=== PATIENT | male | born 1955 | race Caucasian/White ===

== ENCOUNTER 2016-10-10 12:03 | Inpatient (IN) | payer OTHER ==
[2016-10-10] VITALS (7 sets, daily range): BP systolic 110–160; BP diastolic 66–86
[~2016-10-10] VITALS: Ht 172.7 cm; Wt 57.8 kg
--- NOTE | ~2016-10-10 | PR ---
[place], [place] PROGRESS NOTE NAME: NICOLE AGUILA [facility] #: [id number] UNIT #: [id number] ROOM: 515 DOCTOR: DARWIN PUCKETT MD,BANG BIRTHDATE: [birth year] DOS: 10/13/2016 PULMONARY PROGRESS NOTE SUBJECTIVE: The patient has been doing well for this patient with reduction of respiratory symptoms were noted from the last 24 hours. Shortness of breath, coughing, wheezing all of the symptoms have been improving gradually. OBJECTIVE: VITAL SIGNS: Normal temperature, respiratory rate 20, heart rate of 84, blood pressure 151/80. Pulse oxygen saturation of the patient recorded as 97%. HEENT: Examination shows no new change. NECK: Supple. CARDIOVASCULAR: S1, S2 is audible. LUNGS: Noted with questionable wheezing, no crackles. ABDOMEN: Soft, nontender. LABORATORY DATA: CBC this morning was noted as normal. IMPRESSION: 1. Stable respiratory status was noted at the present time with resolving acute exacerbation of COPD. 2. History of chronic hypoxic respiratory failure. PLAN OF TREATMENT: No change in the plan. The patient could be considered for home discharge on oral tapering prednisone and the antibiotics. All of the necessary medications of the inhalers, refills needed by the patient has been ordered and submitted to the pharmacy. BANG GRANADOS MD CM:PNTRANS [id number] BANG PUCKETT MD 10/13/16 1122 interface
--- NOTE | ~2016-10-10 | PR ---
[place], [place] PROGRESS NOTE NAME: NICOLE AGUILA [facility] #: [id number] UNIT #: [id number] ROOM: 515 DOCTOR: VAN PACHECO MD BIRTHDATE: [birth year] DOS: 10/12/2016 SUBJECTIVE: This gentleman was seen by Dr. Dennis yesterday. He had a normal stress test not long ago and LV systolic function is normal. He was admitted because of chest pain and mild worsening shortness of breath. He gets very anxious, his breathing is worse and chest tightness also gets worse. He has no palpitations, has not had any dizziness or loss of consciousness. PHYSICAL EXAMINATION: VITAL SIGNS: Pulse is 100 and regular, blood pressure 141/95. NECK: Normal JVP. EXTREMITIES: No edema in the lower extremities. CARDIOVASCULAR: Auscultation reveals no murmurs. LUNGS: Breath sounds are severely diminished with inspiratory and expiratory wheezing and rhonchi and crackles. IMPRESSION: This patient's chest pain is most likely due to chest wall due to labored breathing. I do not suspect any underlying coronary artery problem at this time. I saw this patient on behalf of Dr. Dennis. VAN PACHECO MD CM:PNTRANS 40 [phone] VAN PACHECO MD 10/13/162057 interface
--- NOTE | ~2016-10-10 | PR ---
[place], [place] PROGRESS NOTE NAME: NICOLE AGUILA [facility] #: [id number] UNIT #: [id number] ROOM: 515 DOCTOR: DARWIN PUCKETT MD,BANG BIRTHDATE: [birth year] DOS: 10/12/2016 PULMONARY PROGRESS NOTE SUBJECTIVE: He has been noted to be comfortable at this time. The shortness of breath and the patient's wheezing has been noted decreased, but not resolved. There were no symptoms of chest pain or any acute abdominal pain. OBJECTIVE: VITAL SIGNS: Normal temperature, respiratory rate 20, heart rate 89, blood pressure 148/86. Pulse oxygen saturation on 3 liters nasal cannula 97% saturation. HEENT: Examination shows no new change. NECK: Supple. CARDIOVASCULAR: S1, S2 audible. LUNGS: Noted without any wheezing and without any crackles. Moderate expiratory wheezing noted in the lungs bilaterally. ABDOMEN: Soft, nontender. LABORATORY DATA: CBC essentially noted grossly normal today. IMPRESSION: The patient with acute exacerbation of COPD with acute tracheobronchitis with history of chronic hypoxic respiratory failure as well. PLAN OF TREATMENT: Continuation of the corticosteroids for the patient, the dose was changed to 40 mg b.i.d. today. Continue bronchodilators, oxygen supplementation, and other plan of management. Usual care. All other supportive care and therapies. Usual treatments. BANG GRANADOS MD CM:PNTRANS 1025 BANG PUCKETT MD 10/13/16 0226 interface
--- NOTE | ~2016-10-10 | CON ---
[place], [place] REPORT OF CONSULTATION NAME: NICOLE AGUILA UNIT #: [id number] ROOM: [facility] DOCTOR: YONIS DE LA VEGAJAI BIRTHDATE: [birth year] DOS: 10/11/2016 REASON FOR CONSULTATION: Atypical chest pain and shortness of breath. HISTORY OF PRESENT ILLNESS: A 61-year-old gentleman who had a stress test done last year showed no evidence of ischemia at that time with preserved systolic function. Admitting with chest pressure and tightness and heaviness and shortness of breath, chest pain, and constant for the last month, it worsens with exertion described it as heavy pressure underneath the sternum history of COPD, uses 2 liters of oxygen, followed by Dr. Machado, does have a history of hypertension. No previous history of myocardial infarction. No acute EKG changes suggestion of myocardial injury, also. Patient was given respiratory treatments in the Emergency Room, chest x-ray showed hyperinflated lungs. PAST MEDICAL HISTORY: Significant for COPD, hypertension, history of pericarditis. PAST SURGICAL HISTORY: History of hernia repair, history of ____ surgery. SOCIAL HISTORY: Drinks about 6 beers daily. Does not use illicit drugs, smokes about 1-1/2 packs of cigarettes daily, already cut down to 3-4 now. Negative alcohol as mentioned. FAMILY HISTORY: Unknown. ALLERGIES: None. HOME MEDICATIONS: Albuterol, lisinopril and oxygen. REVIEW OF SYSTEMS: CONSTITUTIONAL: No fever, no chills. CARDIOVASCULAR: Reports chest discomfort, no palpitations. ABDOMEN: No nausea, no vomiting. GENITOURINARY: No dysuria, hematuria. NEUROLOGIC: Intact. PSYCHIATRIC: Intact. ENDOCRINE: Intact. SKIN: Normal. PHYSICAL EXAMINATION: VITAL SIGNS: Blood pressure is 110/60. The patient is in sinus rhythm. HEENT: Unremarkable. NECK: Supple, no JVD. LUNGS: Clear to auscultation and percussion with positive wheezing, diminished breath sounds. ABDOMEN: Soft. NEUROLOGIC: Stable. LABORATORY DATA: Electrolytes are within normal limits. GFR is normal. Troponins are negative. BNP is 190. Sed rate is not done. INR is normal. [place], [place] REPORT OF CONSULTATION NAME: NICOLE AGUILA UNIT #: [id number] ROOM: [facility] DOCTOR: YONIS DE LA VEGA,JAI BIRTHDATE: [birth year] Hemoglobin, hematocrit within normal limits. Chest x-ray shows no consolidation or effusion, large volume lung bruce interstitial bilaterally ____ fibrosis. EKG showed no acute ST elevation. IMPRESSION: The patient with severe COPD, hypertension, stress test done last year was normal. RECOMMENDATIONS: Continue the present care. We will do the serial enzymes, respiratory toilet. 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 No significant ST elevation and there is no VA depression suggesting any pericarditis most of the changes in the EKG was consistent with pulmonary problems and continue with respiratory treatment at this point. JAI SOMERS MD CM:CONSTR:REPORT OF CONSULTATION 0738 10/11/16 0902 interface
--- NOTE | ~2016-10-10 | CON ---
[place], [place] REPORT OF CONSULTATION NAME: NICOLE AGUILA [facility] #: [id number] UNIT #: [id number] ROOM: 515 DOCTOR: DARWIN PUCKETT MDBANG BIRTHDATE: [birth year] DOS: 10/11/2016 PULMONARY CONSULTATION, EVALUATION AND MANAGEMENT CONSULTATION REQUESTED BY: Hospitalist services. REASON FOR CONSULTATION: To assess the patient for ongoing acute respiratory complaints. HISTORY OF PRESENT ILLNESS: A 61 years old white male known to me from the past. The patient has not been seen in the office since 05/14/2016. The patient has been known with the current problem. The patient stated that he ran out of his medications and does not have any future appointment in the office as well. He denies any symptoms of chest pain, but complaining of tightness in the chest. He also noticed symptoms of shortness of breath occurring for the past 1 month, which has been noted progressively worsening. He was seen in the Emergency Room and has been using the oxygen supplementation previously as well. The coughing has been described without any sputum expectoration. The shortness of breath was occurring with minimal exertion from walking his bed to the bathroom. He also noted continuous wheezing as well. The coughing has been noted essentially without any sputum expectoration. Denies symptoms of hemoptysis or any true chest pain. REVIEW OF SYSTEMS: CONSTITUTIONAL: Fatigue and tiredness described without symptoms of fever or chills. EYES: Denies any burning, redness, or tenderness. EARS, NOSE, THROAT SYMPTOMS: Denies sore throat, hoarseness, otalgia, postnasal drainage. CARDIOVASCULAR SYSTEM: Denies anginal pain, edema of the lower extremities or palpitations. GASTROINTESTINAL SYMPTOMS: Denies dysphagia, nausea, vomiting, diarrhea, abdominal pain, hematemesis, melena, hematochezia, or syncopal episodes. SKIN: Denies lesions or rashes. GENITOURINARY SYMPTOMS: Denies dysuria, suprapubic pain, or hematuria. MUSCULOSKELETAL SYMPTOMS: Denies acute joint pain. Remaining systems were reviewed and noted all negative. PAST MEDICAL HISTORY: Noted, 1. History of chronic hearing loss. 2. Blindness of the right eye. 3. History of uncomplicated severe persistent bronchial asthma. 4. Centrilobular emphysema. 5. Chronic hypoxic respiratory failure. 6. Essential hypertension. SURGICAL HISTORY: Fiberoptic bronchoscopy done in August 2015. SOCIAL HISTORY: The patient is , has 2 children. Denies history of [place], [place] REPORT OF CONSULTATION [facility] [id number] UNIT #: [id number] ROOM: [facility] DOCTOR: BANG LESTER MD BIRTHDATE: [birth year] alcohol use or illicit drug use. Tobacco use noted since age of [age] years old, a pack of cigarettes per day until 08/2015. Denies history of occupation related to pulmonary exposure. FAMILY HISTORY: The patient's father at the age of 51 years from complications of acute myocardial infarction. Mother at the age of 6868 years old from complication related to the ovarian cancer. MEDICATIONS: Current medication administered for the patient were noted as use of Lovenox for DVT prophylaxis, Solu-Medrol 40 mg q. 8 hours, indomethacin for pain, DuoNeb q. 4 hours, Levaquin intravenously and other p.r.n. medications administration. DRUG ALLERGY HISTORY: Noted no known drug allergies. PHYSICAL EXAMINATION: GENERAL: This is a 61-year-old white male who has been noted currently awake and alert without any distress. Height of 5 feet 8 inches, weight of 57 kg, BMI 19.3. VITAL SIGNS: Shows a normal temperature, respiratory rate 14-26, heart rate of 83-95, blood pressure 118/86-162/86. Pulse oxygen saturation on 3 L nasal canula 99% saturation. HEENT: On examination, head was atraumatic. Eyes nonicterus. Decreased hearing for this patient noted in the ears, which is chronic. Blindness of the right eye. NECK: Supple. CARDIOVASCULAR SYSTEM: S1, S2 audible. LUNGS: Noted with moderate reduced breath sounds, expiratory wheezing, no crackles. ABDOMEN: Soft, nontender. LABORATORY DATA: The PT, PTT yesterday noted as normal. CMP yesterday, glucose 135, BUN and creatinine was normal, CO2 of 33. CBC of 10/10 was noted with WBC count 4.1, remaining CBC was essentially normal. CBC of this morning, WBC count was still decreased at 3.2, hemoglobin 13, hematocrit 39.6, platelet count was normal with 84% segmented neutrophils and 10% lymphocytes noted with a differential. The BMP this morning, sodium 132, remaining BMP was normal. Chest x-ray, 1 view was taken on 10/10/2016, shows changes of COPD and hyperinflation. IMPRESSION: 1. The patient who has been currently admitted to the hospital noted with progressive increased respiratory symptoms, history of chronic hypoxic respiratory failure noted with acute exacerbation of chronic obstructive pulmonary disease and acute bacterial bronchitis. 2. The patient with previous nicotine dependence, which has been discontinued in August 2016. 3. History of essential hypertension as well. 4. Leukopenia, etiology was unclear. [place], [place] REPORT OF CONSULTATION NAME: NICOLE AGUILA UNIT #: [id number] ROOM: [facility] DOCTOR: DARWIN PUCKETT MD,BANG BIRTHDATE: [birth year] PLAN OF MANAGEMENT: The patient has already been receiving the Solu-Medrol, bronchodilators, monitoring leukopenia. If it further worsens, obtain the Hematology consultation. Obtain the sputum for Gram stain and culture. Bronchodilators will be continued as previously. Abstinence from the tobacco use continued to be encouraged. Other supportive plan and management as well. Usual treatment and other care. Further treatment changes will be done based on the progression of the illness. Thanks for allowing me to participate in the care of this patient. BANG GRANADOS MD CM:CONSTR:REPORT OF CONSULTATION 1024 10/12/16 0115 interface
[~2016-10-10 12:03] MED LIST: ACETAMINOPHEN-H1 TA2 PO; ADVAIR 250/501 EA INH; ATIVAN1 MG PO; CATAFLAM50 MG PO; CELEXA10 MG PO; DOXYCYCLINE HY100 M5 PO; DOXYCYCLINE100 M3 PO; FLEXERIL5 MG PO; INDOMETHACIN25 M1 PO; INHALER INH; LIPITOR10 MG; LISINOPRIL5 MG PO; MUCINEX DM 30/61 TAB PO; NKHM; PREDNISONE10 MG PO; PRILOSEC20 M1 PO; PROAIR HFA8.5 GM IH; PROAIR HFA8.5 GM INH; SPIRIVA -- 3018 MCG INH; SYMBICORT1 AE1 INH; VENTOLIN H0.09 MG/AC INH; XANAX1 MG PO; ZITHROMAX250 MG PO
[2016-10-10] MEDS ORDERED: OXYGEN NAS (12:25)
[2016-10-10 12:55] LABS: HEMATOCRIT 44.3 % (42.0-52.0); HEMOGLOBIN 14.8 g/dl (14.0-18.0); MEAN CELL VOLUME 87.5 fl (80.0-94.0); MEAN CORPUSCULAR HGB 29.2 pg (27.0-31.0); MEAN CORPUSCULAR HGB CONC 33.4 g/dl (33.0-37.0); MEAN PLATELET VOLUME 10.5 fl (9.6-12.3); PLATELET COUNT AUTOMATED 286 10*3/uL (130-400); RED BLOOD COUNT 5.06 10*6/uL (4.50-5.90); RED CELL DISTRI WIDTH 13.6 % (0-14.5); WHITE BLOOD COUNT 4.1 10*3/uL (4.8-10.8)
[2016-10-10 13:02] LABS: INTERNATIONAL NORM RATIO 1.1 (2.0-3.5); PROTHROMBIN TIME 11.6 SECONDS (9.0-12.4)
[2016-10-10 13:06] LABS: ALBUMIN 3.5 gm/dl (3.1-4.5); ALKALINE PHOSPHATASE 76 U/L (45-117); BILIRUBIN, TOTAL 0.3 mg/dl (0.2-1.0); BUN 7 mg/dl (7-24); CARBON DIOXIDE 33 mmol/L (21-32); CHLORIDE 99 mmol/L (98-107); EST GLOM FILT AFRICAN AMERICAN > 60 ml/min; GLUCOSE 135 mg/dL (65-99); MAGNESIUM 2.4 mg/dL (1.5-2.1); POTASSIUM 3.9 mmol/L (3.5-5.1); SGOT/AST 49 IU/L (3-35); SGPT/ALT 57 U/L (12-78); SODIUM 140 mmol/L (136-145); TOTAL PROTEIN 8.3 gm/dL (6.4-8.2)
[2016-10-10 13:07] LABS: TROPONIN I < 0.015 ng/ml (<0.045)
[2016-10-10 13:19] LABS: ATYPICAL LYMPHS 1 % (0-0); LYMPHOCYTE # 1.6 10*3/uL (1.3-4.4); MONOCYTE # 0.5 10*3/uL (0.1-1.0); NEUTROPHIL # 2.1 10*3/uL (2.3-7.9); NEUTROPHILS 50 % (47-73); PLATELET SUFFICIENCY NORMAL (NORMAL); TOTAL CELLS COUNTED 100 #CELLS
[2016-10-10] MEDS ORDERED: INCRUSE EL62.5 MCG/A IH (15:28)
[2016-10-10] MEDS ORDERED: LISINOPRIL5 MG PO (15:28)
[2016-10-10] MEDS ORDERED: VENTOLIN 02.5 MG/3 M INH (15:29)
[2016-10-10 18:38] LABS: CKMB 2.1 ng/ml (0.5-3.6); CPK 52 U/L (39-308)
[2016-10-10 18:39] LABS: TROPONIN I < 0.015 ng/ml (<0.045)
[2016-10-11] VITALS (7 sets, daily range): BP systolic 129–162; BP diastolic 70–88
[2016-10-11 00:39] LABS: CKMB 2.2 ng/ml (0.5-3.6); CPK 55 U/L (39-308)
[2016-10-11 00:40] LABS: TROPONIN I < 0.015 ng/ml (<0.045)
[2016-10-11 06:16] LABS: HEMATOCRIT 39.6 % (42.0-52.0); MEAN CELL VOLUME 87.2 fl (80.0-94.0); MEAN CORPUSCULAR HGB 28.6 pg (27.0-31.0); MEAN CORPUSCULAR HGB CONC 32.8 g/dl (33.0-37.0); MEAN PLATELET VOLUME 10.7 fl (9.6-12.3); PLATELET COUNT AUTOMATED 260 10*3/uL (130-400); RED BLOOD COUNT 4.54 10*6/uL (4.50-5.90); RED CELL DISTRI WIDTH 13.7 % (0-14.5); WHITE BLOOD COUNT 3.2 10*3/uL (4.8-10.8)
[2016-10-11 06:27] LABS: CKMB 2.2 ng/ml (0.5-3.6); CPK 43 U/L (39-308)
[2016-10-11 06:30] LABS: TROPONIN I < 0.015 ng/ml (<0.045)
[2016-10-11 06:47] LABS: BUN 10 mg/dl (7-24); CARBON DIOXIDE 31 mmol/L (21-32); CHLORIDE 102 mmol/L (98-107); EST GLOM FILT AFRICAN AMERICAN > 60 ml/min; GLUCOSE 132 mg/dL (65-99); MAGNESIUM 2.3 mg/dL (1.5-2.1); POTASSIUM 4.7 mmol/L (3.5-5.1); SODIUM 137 mmol/L (136-145); TRIGLYCERIDES 37 mg/dl (<150); VLDL CHOLESTEROL 7 mg/dL (6-40)
[2016-10-11 06:53] LABS: INTERNATIONAL NORM RATIO 1.1 (2.0-3.5); PROTHROMBIN TIME 11.4 SECONDS (9.0-12.4)
[2016-10-11 06:57] LABS: CHOLESTEROL 100 mg/dL (<200); FREE T4 1.12 ng/dl (0.76-1.46); HDL CHOLESTEROL 47 mg/dl (40-60); LDL CHOLESTEROL 46 mg/dL (9-159); PHOSPHOROUS 3.2 mg/dL (2.5-4.9)
[2016-10-11 07:10] LABS: LYMPHOCYTE # 0.3 10*3/uL (1.3-4.4); MONOCYTE # 0.2 10*3/uL (0.1-1.0); NEUTROPHIL # 2.7 10*3/uL (2.3-7.9); NEUTROPHILS 84 % (47-73); PLATELET SUFFICIENCY NORMAL (NORMAL); TOTAL CELLS COUNTED 100 #CELLS
[2016-10-11 07:36] LABS: HEMOGLOBIN A1c 5.6 % (4.8-5.6)
[2016-10-11 08:22] LABS: VITAMIN D, 25-HYDROXY 25.8 ng/mL (30-100)
[2016-10-12] VITALS: BP 121/56
[2016-10-12 07:37] LABS: BASO % 0.2 % (0.0-1.0); HEMATOCRIT 40.7 % (42.0-52.0); HEMOGLOBIN 13.5 g/dl (14.0-18.0); LYMPH # 0.5 10*3/uL (1.3-4.4); LYMPH % 8.4 % (27.0-41.0); MEAN CELL VOLUME 89.1 fl (80.0-94.0); MEAN CORPUSCULAR HGB 29.5 pg (27.0-31.0); MEAN CORPUSCULAR HGB CONC 33.2 g/dl (33.0-37.0); MONO # 0.4 10*3/uL (0.1-1.0); MONO % 6.4 % (3.0-9.0); NEUT # 5.3 10*3/uL (2.3-7.9); NEUT % 84.5 % (47.0-73.0); PLATELET COUNT AUTOMATED 331 10*3/uL (130-400); RED BLOOD COUNT 4.57 10*6/uL (4.50-5.90); RED CELL DISTRI WIDTH 14.1 % (0-14.5); WHITE BLOOD COUNT 6.3 10*3/uL (4.8-10.8)
[2016-10-12 08:00] VITALS: BP 148/86
[2016-10-12] MEDS ORDERED: PREDNISONE10 MG PO (10:55)
[2016-10-12] MEDS ORDERED: ACETAMINOPHEN-H1 TA2 PO (10:55)
[2016-10-12] MEDS ORDERED: DOXYCYCLINE100 MG PO (10:55)
[2016-10-12] MEDS ORDERED: INDOMETHACIN50 MG PO (10:55)
[2016-10-12 12:00] VITALS: BP 136/87
[2016-10-12 16:00] VITALS: BP 141/95
[2016-10-12 20:00] VITALS: BP 155/82
[2016-10-13] VITALS: BP 136/84
[2016-10-13 08:00] VITALS: BP 151/80
[2016-10-13] MEDS ORDERED: VENTOLIN 02.5 MG/3 M INH (11:06)
[2016-10-13] MEDS ORDERED: LEVAQUIN500 M2 PO (11:06)
[2016-10-13] MEDS ORDERED: INCRUSE EL62.5 MCG/A IH (11:06)
[2016-10-13] MEDS ORDERED: PREDNISONE10 MG PO (11:06)
[2016-10-13] MEDS ORDERED: VICODIN 5-3001 EACH PO (11:06)
[2016-10-13 12:10] VITALS: BP 144/78
== END 2016-10-13 12:12 | disposition home or self-care (01) | DRG 871 ==
LOC: ED 12:03 → EDHOLD 13:46 → 5E 13:46
PROVIDERS: Emergency Medicine; Internal Medicine
DX: A41.9 Sepsis, unspecified organism (principal); J96.20 Acute and chronic respiratory failure, unspecified whether with hypoxia or hypercapnia; J18.9 Pneumonia, unspecified organism; J44.1 Chronic obstructive pulmonary disease with (acute) exacerbation; J44.0 Chronic obstructive pulmonary disease with (acute) lower respiratory infection; E83.41 Hypermagnesemia; Z99.81 Dependence on supplemental oxygen; I10 Essential (primary) hypertension; F17.210 Nicotine dependence, cigarettes, uncomplicated; F10.10 Alcohol abuse, uncomplicated; Z80.41 Family history of malignant neoplasm of ovary; Z82.49 Family history of ischemic heart disease and other diseases of the circulatory system; R73.9 Hyperglycemia, unspecified; D72.819 Decreased white blood cell count, unspecified; R74.0 Nonspecific elevation of levels of transaminase and lactic acid dehydrogenase [LDH]; J45.50 Severe persistent asthma, uncomplicated; J20.9 Acute bronchitis, unspecified; Z79.52 Long term (current) use of systemic steroids

== ENCOUNTER → 2016-10-25 | Outpatient (CLI) | payer OTHER ==
[~2016-10-25] MED LIST changes: +DOXYCYCLINE100 MG PO; +INCRUSE EL62.5 MCG/A IH; +INDOMETHACIN50 MG PO; +LEVAQUIN500 M2 PO; +OXYGEN NAS; +VENTOLIN 02.5 MG/3 M INH; +VICODIN 5-3001 EACH PO
== END | disposition home or self-care (01) ==
LOC: RESCLI 03:46
DX: J44.9 Chronic obstructive pulmonary disease, unspecified (principal); I10 Essential (primary) hypertension; Z72.0 Tobacco use

== ENCOUNTER → 2016-11-15 | Outpatient (CLI) | payer OTHER | END | disposition home or self-care (01) | LOC: RESCLI 02:35 | DX: J44.9 Chronic obstructive pulmonary disease, unspecified (principal); I10 Essential (primary) hypertension; G47.00 Insomnia, unspecified ==

== ENCOUNTER → 2016-12-08 | Outpatient (CLI) | payer OTHER ==
--- NOTE | ~2016-12-08 | PF ---
[place], [place] PULMONARY FUNCTION TEST [id number] UNIT #: [id number] ROOM: DOCTOR: DARWIN PUCKETT MD,BANG BIRTHDATE: [birth year] DOS: 12/08/2016 Test was ordered by Dr. Afshin Karimi. HISTORY: The patient was recorded as 61-year-old male, height of 66 inches, and weight of 125 pounds. The testing was done for assessment of shortness breath with exertion, nonproductive cough, rare wheezing, active tobacco use, 1 pack of cigarettes per day noted for the past 25 years. SPIROMETRY: The FVC was recorded 2.66 liters at 64% predicted value, moderately decreased with 38% qfmezogthim-[id number] improvement occurred postbronchodilator test. FEV1 was noted 1.68 liters at 53% predicted value, mildly decreased without significant postbronchodilator changes. Ratio of FEV1/FVC postbronchodilator noted at 47%. Flow volume loop was suggestive of obstructive airway disease. LUNG VOLUME: Thoracic gas volume recorded 154%, residual volume of 190%, total lung capacity of 108%, RV/TLC ratio 179%. Lung volume suggests moderate air trapping secondary to obstructive lung disease, the patient's lung diffusion noted severely decreased at 29%. It was not corrected carbon monoxide or hemoglobin values. The patient's airway resistance, passive conductance was noted abnormal. FINAL IMPRESSION: The test was noted with findings suggestive of gnvwadqz-an-ybdayd chronic obstructive pulmonary disease for this patient, as well as evidence of bronchial asthma as well. Clinical correlation would be advised. BANG GRANADOS MD CM:PFREPORT:PULMONARY FUNCTION TEST 1210 1247 BANG PUCKETT MD
== END | disposition home or self-care (01) ==
LOC: CP 07:08
DX: J44.9 Chronic obstructive pulmonary disease, unspecified (principal); F17.200 Nicotine dependence, unspecified, uncomplicated

== ENCOUNTER 2017-01-08 18:25 | Inpatient (IN) | payer OTHER ==
[~2017-01-08] VITALS: Ht 172.7 cm; Wt 59.0 kg
--- NOTE | ~2017-01-08 | PR ---
[place], [place] PROGRESS NOTE NAME: NICOLE AGUILA [facility] #: [id number] UNIT #: [id number] ROOM: 520 DOCTOR: DARWIN PCUKETT MD,BANG BIRTHDATE: [birth year] DOS: 01/12/2017 SUBJECTIVE: The patient has been noted with continued reduction and improvement in the respiratory symptoms, shortness of breath, coughing, wheezing and chest pain. Denies symptoms of hemoptysis. OBJECTIVE: VITAL SIGNS: Normal temperature, respiratory rate 18, heart rate 77, blood pressure 152/90. Pulse oxygen saturation of the patient recorded as 99% on 2 L nasal cannula. HEENT: Examination shows no acute change. NECK: Supple. CARDIOVASCULAR: S1, S2 audible. LUNGS: The patient noted without any wheezing or crackles at this time. ABDOMEN: Soft, nontender. LABORATORY DATA: BMP today was noted normal. CBC this morning, WBC count 4.1, hemoglobin 11.5, hematocrit 36.0, platelet count was normal. IMPRESSION: The patient with mild anemia, leukopenia, with acute pneumonia, with exacerbation of COPD and chronic hypoxic respiratory failure. PLAN OF TREATMENT: The patient may be considered for home discharge today on tapering dose of prednisone, oral antibiotic and pain medications. Outpatient followup for the patient will be assessed prior to the discharge. Continue oxygen supplementation at home. Tobacco cessation was addressed with the patient. BANG GRANADOS MD CM:GREGORIO [id number] BANG PUCKETT MD 01/12/17 1117 interface
--- NOTE | ~2017-01-08 | CON ---
[place], [place] REPORT OF CONSULTATION NAME: NICOLE AGUILA [facility] #: [id number] UNIT #: [id number] ROOM: 520 DOCTOR: DARWIN PUCKETT MDBANG BIRTHDATE: [birth year] DOS: 01/10/2017 PULMONARY CONSULTATION REASON FOR CONSULTATION: Assess the patient for ongoing acute exacerbation of chronic obstructive pulmonary disease as well as acute pneumonia. HISTORY OF PRESENT ILLNESS: This is a 61-year-old white male who has been known to me from the past with history of centrilobular emphysema, COPD, and other problems, presented to the hospital Emergency Room on 01/09/2017. The patient stated that he has developed significant pain, which he described in the left side of the chest with pain in the back as well. The pain has been noted to be progressive. He had been brought to the Emergency Room. The patient has been admitted to the hospital after assessment. He denies any symptoms of chest pain with progression, but noted with partial improvement from yesterday. The patient denies any symptoms of hemoptysis. He does have symptoms of sputum expectoration of moderate quantity as greenish in color at times. There were no symptoms of chest trauma. The patient reported symptoms of shortness of breath that occurred with exertion and wheezing as well. REVIEW OF SYSTEMS: CONSTITUTIONAL: Fatigue and tiredness noted. Denies any fever or chills. EYES: The patient has been noted with chronic blindness of the right eye. Denies any burning, redness, or tenderness. EARS, NOSE, THROAT: Moderate hearing loss. No sore throat, hoarseness, otalgia, postnasal drainage. CARDIOVASCULAR: Denies anginal pain, edema or pain of the lower extremities. GASTROINTESTINAL: Denies dysphagia, nausea, vomiting, diarrhea, abdominal pain, hematemesis, melena, or hematochezia. SKIN: Denies any lesions or rashes. CENTRAL NERVOUS SYSTEM: Denies dizziness, headache, diplopia or syncopal episodes. Review of the medical record of the patient was performed. The patient has been hospitalized in this hospital in 09/2016 days and discharged after medical management completion improvement from 10/10/2016 until 10/13/2016. The patient has shown significant improvement in the symptoms after that. PAST MEDICAL HISTORY: 1. Noted with history of uncomplicated severe persistent bronchial asthma. 2. Centrilobular emphysema. 3. Chronic hypoxic respiratory failure with use of oxygen by 2 liter nasal cannula. 4. Essential hypertension. 5. Chronic blindness of the right eye. 6. History of chronic moderate hearing loss. SOCIAL HISTORY: The patient is , has 2 children, lives at home. Smoking was noted from the patient age of [age] years old, a pack of cigarettes per day with intermittent tobacco cessation. There was no history of alcohol use, [place], [place] REPORT OF CONSULTATION NAME: NICOLE AGUILA UNIT #: [id number] ROOM: [facility] DOCTOR: BANG LESTER MD BIRTHDATE: [birth year] illicit drug use or occupation related pulmonary exposure. FAMILY HISTORY: Father at age of 5151 years old complications related to myocardial infarction. Mother at age 6868 years old from complication related to the ovarian cancer. PAST SURGICAL HISTORY: Noted for bronchoscopy that was done in 08/2015. MEDICATIONS: Current administered medication of patient noted with use of the nicotine replacement patches, lisinopril, Dulera, DuoNeb, Lovenox for DVT prophylaxis, IV Solu-Medrol 60 mg q.8 hours, IV Rocephin, Zithromax and other medications. DRUG ALLERGIES: No known drug allergies. PHYSICAL EXAMINATION: GENERAL: This is a 61-year-old male who has been noted currently without any acute distress. The patient's height was recorded at 5 feet 8 inches, weight of 130 pounds, BMI 19.7. VITAL SIGNS: For the patient which has been recorded shows respiratory rate recorded between 26-20. Heart rate 76-101, blood pressure 152/90-126/68. Pulse oxygen saturation of the patient recorded on 3 liters via canula 96%; this morning was noted 3 liters 99% saturation. HEENT: Examination shows head was atraumatic. Eyes nonicteric. Seen with chronic hearing loss and blindness of the right eye. NECK: Supple. CARDIOVASCULAR: S1, S2 audible. LUNGS: The patient noted moderate reduction of breath sounds noted with expiratory wheezing without any crackles. ABDOMEN: Soft, flat, nontender, bowel sounds present. CENTRAL NERVOUS SYSTEM: Noted without any gross focal deficit. EXTREMITIES: The patient showed no edema, clubbing or cyanosis. CENTRAL NERVOUS SYSTEM: Cranial nerves 2-12 intact. No focal deficit. MUSCULOSKELETAL: No deformities. SKIN: Showed no lesions or rashes. LABORATORY DATA: CBC of the patient on 01/08/2017 in the Emergency Room were noted as normal. PT/PTT on 01/08 in Emergency Room normal. Lactic acid 2.2 in the Emergency Room on 01/08/2017 and follow was 1.1. CMP of the patient on 01/08 in Emergency Room assessed was noted normal CK-MB, troponin of patient and CMP. CBC yesterday, WBC count 3.3, hemoglobin 12.7, hematocrit 39.3, platelet count normal. PT/PTT yesterday was noted as normal. CBC that was done for the patient this morning was noted as normal WBC count, hemoglobin 12.3, hematocrit 37.8, platelet count was normal. PT/PTT repeated again was noted as normal. The review of the radiology data shows the chest x-ray of the patient that was done, 1 view, in the Emergency Room on 01/08/2017 shows changes of COPD and emphysema, hyperinflation without any visible gross pulmonary infiltration. 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 DOCTOR[facility] BIR[facility]: [birth year] paraseptal emphysema changes. A small infiltration consolidation in the right upper lung in the patient cannot be excluded. There were no pleural effusions. There were no abnormal visible pulmonary nodules as well. IMPRESSION: 1. The patient who has been currently admitted to the hospital noted with acute exacerbation of chronic obstructive pulmonary disease as well as acute pneumonia for this patient with gram-positive organism community-acquired involving the right upper lobe. 2. 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 The patient was suspected for changes of paraseptal as well as centrilobular emphysema noted in the CT scan of the chest. 3. History of chronic nicotine dependence as well. 4. Chronic hearing loss in the patient as well and other medical problems. PLAN OF TREATMENT: The patient has been currently responding to treatment with gradual reduction and improvement in symptoms. The chest pain for the patient, which appeared to be musculoskeletal may be related to the pneumonia. The patient has been responding to treatment with pain management. The dose of Solu-Medrol will be decreased today. Continuation of the nicotine replacement patches. Continuation of the other treatment, therapy plan and management as in progress. Sputum for Gram stain and culture will be monitored once available. The culture of the patient has not been ordered, which has been ordered today by me. Monitor the respiratory status closely. Usual care. Further treatment changes to the patient with the progression of the illness. Thanks for allowing me to participate in the care of this patient. BANG GRANADOS MD CM:CONSTR:REPORT OF CONSULTATION 1115 01/10/17 1201 interface
--- NOTE | ~2017-01-08 | PR ---
[place], [place] PROGRESS NOTE NAME: NICOLE AGUILA [facility] #: [id number] UNIT #: [id number] ROOM: 520 DOCTOR: DARWIN PUCKETT MD,BANG BIRTHDATE: [birth year] DOS: 01/11/2017 SUBJECTIVE: The patient has been noted with chest pain still which was described in the right chest, treated with pain medications. The coughing and wheezing symptoms have been improving gradually. Denies symptoms of hemoptysis. OBJECTIVE: VITAL SIGNS: For the patient which has been recorded showed the temperature noted as normal, respiration 20, heart rate 89, and blood pressure 148/94 to 160/56. The pulse oxygen saturation of the patient recorded on 2 liters nasal cannula, 98% saturation. HEENT: Moderate senile hearing loss. NECK: Supple. CARDIOVASCULAR: S1, S2 audible. LUNGS: The patient was noted without any wheezing or crackles at the present time. ABDOMEN: Soft, nontender. LABORATORY DATA: PT/PTT noted normal today. BMP this morning, glucose 128; remaining BMP normal. CBC of the patient, WBC count 4.0, hemoglobin 11.3, hematocrit 34.7, platelet count was normal. IMPRESSION: Acute exacerbation of chronic obstructive pulmonary disease, acute tracheobronchitis as well as acute pneumonia, history of nicotine abuse. PLAN OF TREATMENT: Further reduce the Solu-Medrol dose to 40 mg b.i.d. because of the improvement in the wheezing was continued. Repeat a chest x-ray of the patient in the morning as well. Sputum for Gram stain culture has been ordered, the patient not completed so far. BANG GRANADOS MD CM:PNTRANS [id number] [id number] BANG PUCKETT MD 01/11/17 1233 interface
[2017-01-08 18:25] VITALS: BP 130/72
[2017-01-08 18:49] LABS: HEMATOCRIT 43.1 % (42.0-52.0); HEMOGLOBIN 14.4 g/dl (14.0-18.0); MEAN CELL VOLUME 88.3 fl (80.0-94.0); MEAN CORPUSCULAR HGB 29.5 pg (27.0-31.0); MEAN CORPUSCULAR HGB CONC 33.4 g/dl (33.0-37.0); MEAN PLATELET VOLUME 10.2 fl (9.6-12.3); PLATELET COUNT AUTOMATED 269 10*3/uL (130-400); RED BLOOD COUNT 4.88 10*6/uL (4.50-5.90); RED CELL DISTRI WIDTH 14.3 % (0-14.5); WHITE BLOOD COUNT 6.7 10*3/uL (4.8-10.8)
[2017-01-08 19:03] LABS: INTERNATIONAL NORM RATIO 1.1 (2.0-3.5); PROTHROMBIN TIME 11.8 SECONDS (9.0-12.4)
[2017-01-08 19:06] LABS: ALBUMIN 3.5 gm/dl (3.1-4.5); ALKALINE PHOSPHATASE 87 U/L (45-117); BILIRUBIN, TOTAL 0.5 mg/dl (0.2-1.0); BUN 9 mg/dl (7-24); CARBON DIOXIDE 27 mmol/L (21-32); CHLORIDE 100 mmol/L (98-107); EST GLOM FILT AFRICAN AMERICAN > 60 ml/min; GLUCOSE 99 mg/dL (65-99); MAGNESIUM 1.9 mg/dL (1.5-2.1); POTASSIUM 3.9 mmol/L (3.5-5.1); SGOT/AST 23 IU/L (3-35); SGPT/ALT 34 U/L (12-78); SODIUM 138 mmol/L (136-145); TOTAL PROTEIN 7.9 gm/dL (6.4-8.2)
[2017-01-08 19:09] LABS: ATYPICAL LYMPHS 1 % (0-0); EOSINOPHIL # 0.1 10*3/uL (0-0.4); EOSINOPHILS 1 % (1-4); MONOCYTE # 1.5 10*3/uL (0.1-1.0); NEUTROPHIL # 4.2 10*3/uL (2.3-7.9); NEUTROPHILS 62 % (47-73); TOTAL CELLS COUNTED 100 #CELLS
[2017-01-08 19:11] LABS: PLATELET SUFFICIENCY NORMAL (NORMAL)
[2017-01-08 19:14] LABS: TROPONIN I < 0.015 ng/ml (<0.045)
[2017-01-08 20:40] VITALS: BP 114/71
[2017-01-08 20:44] LABS: LA>2 REFLEX 2 HR DRAW NOW
[2017-01-08] MEDS ORDERED: DULE1ARO INH (21:25)
[2017-01-09] VITALS: BP 98/61
[2017-01-09 06:07] LABS: BASO % 0.3 % (0.0-1.0); HEMATOCRIT 39.3 % (42.0-52.0); HEMOGLOBIN 12.7 g/dl (14.0-18.0); LYMPH # 0.3 10*3/uL (1.3-4.4); LYMPH % 8.7 % (27.0-41.0); MEAN CELL VOLUME 90.3 fl (80.0-94.0); MEAN CORPUSCULAR HGB 29.2 pg (27.0-31.0); MEAN CORPUSCULAR HGB CONC 32.3 g/dl (33.0-37.0); MEAN PLATELET VOLUME 10.5 fl (9.6-12.3); MONO # 0.1 10*3/uL (0.1-1.0); MONO % 2.7 % (3.0-9.0); NEUT # 2.9 10*3/uL (2.3-7.9); PLATELET COUNT AUTOMATED 242 10*3/uL (130-400); RED BLOOD COUNT 4.35 10*6/uL (4.50-5.90); RED CELL DISTRI WIDTH 14.2 % (0-14.5); WHITE BLOOD COUNT 3.3 10*3/uL (4.8-10.8)
[2017-01-09 06:25] LABS: INTERNATIONAL NORM RATIO 1.1 (2.0-3.5); PROTHROMBIN TIME 12.2 SECONDS (9.0-12.4)
[2017-01-09 06:28] LABS: BUN 8 mg/dl (7-24); CARBON DIOXIDE 28 mmol/L (21-32); CHLORIDE 106 mmol/L (98-107); GLUCOSE 152 mg/dL (65-99); MAGNESIUM 2.1 mg/dL (1.5-2.1); POTASSIUM 4.5 mmol/L (3.5-5.1); SODIUM 141 mmol/L (136-145)
[2017-01-09 06:40] LABS: CHOLESTEROL 90 mg/dL (<200); EST GLOM FILT AFRICAN AMERICAN > 60 ml/min; FREE T4 0.71 ng/dl (0.76-1.46); HDL CHOLESTEROL 64 mg/dl (40-60); LDL CHOLESTEROL 20 mg/dL (9-159); THYROID STIM HORMONE (HS) 0.743 uIU/ml (0.358-4.75); TRIGLYCERIDES 30 mg/dl (<150); VLDL CHOLESTEROL 6 mg/dL (6-40)
[2017-01-09 06:43] LABS: HEMOGLOBIN A1c 5.2 % (4.8-5.6)
[2017-01-09 07:47] LABS: VITAMIN D, 25-HYDROXY 23.9 ng/mL (30-100)
[2017-01-09 07:48] LABS: FOLIC ACID 6.99 ng/mL (>5.38)
[2017-01-09 08:00] VITALS: BP 111/72
[2017-01-09 12:00] VITALS: BP 126/80; BP 131/71
[2017-01-09 16:00] VITALS: BP 132/80
[2017-01-09 20:00] VITALS: BP 126/70
[2017-01-10] VITALS: BP 126/68
[2017-01-10 06:27] LABS: BUN 7 mg/dl (7-24); CARBON DIOXIDE 29 mmol/L (21-32); CHLORIDE 106 mmol/L (98-107); EST GLOM FILT AFRICAN AMERICAN > 60 ml/min; GLUCOSE 149 mg/dL (65-99); SODIUM 141 mmol/L (136-145)
[2017-01-10 06:33] LABS: BASO % 0.2 % (0.0-1.0); HEMATOCRIT 37.8 % (42.0-52.0); HEMOGLOBIN 12.3 g/dl (14.0-18.0); LYMPH # 0.4 10*3/uL (1.3-4.4); MEAN CELL VOLUME 90.6 fl (80.0-94.0); MEAN CORPUSCULAR HGB 29.5 pg (27.0-31.0); MEAN CORPUSCULAR HGB CONC 32.5 g/dl (33.0-37.0); MEAN PLATELET VOLUME 10.8 fl (9.6-12.3); MONO # 0.4 10*3/uL (0.1-1.0); MONO % 6.9 % (3.0-9.0); NEUT # 4.3 10*3/uL (2.3-7.9); NEUT % 84.7 % (47.0-73.0); PLATELET COUNT AUTOMATED 246 10*3/uL (130-400); RED BLOOD COUNT 4.17 10*6/uL (4.50-5.90); RED CELL DISTRI WIDTH 14.3 % (0-14.5); WHITE BLOOD COUNT 5.1 10*3/uL (4.8-10.8)
[2017-01-10 08:25] VITALS: BP 152/92
[2017-01-10 12:00] VITALS: BP 147/92
[2017-01-10 16:00] VITALS: BP 132/75
[2017-01-10 20:00] VITALS: BP 139/84
[2017-01-11] VITALS: BP 116/56
[2017-01-11 06:45] LABS: HEMATOCRIT 34.7 % (42.0-52.0); HEMOGLOBIN 11.3 g/dl (14.0-18.0); LYMPH # 0.4 10*3/uL (1.3-4.4); LYMPH % 10.3 % (27.0-41.0); MEAN CELL VOLUME 91.8 fl (80.0-94.0); MEAN CORPUSCULAR HGB 29.9 pg (27.0-31.0); MEAN CORPUSCULAR HGB CONC 32.6 g/dl (33.0-37.0); MEAN PLATELET VOLUME 10.5 fl (9.6-12.3); MONO # 0.2 10*3/uL (0.1-1.0); MONO % 5.5 % (3.0-9.0); NEUT # 3.3 10*3/uL (2.3-7.9); NEUT % 83.9 % (47.0-73.0); PLATELET COUNT AUTOMATED 244 10*3/uL (130-400); RED BLOOD COUNT 3.78 10*6/uL (4.50-5.90); RED CELL DISTRI WIDTH 14.6 % (0-14.5)
[2017-01-11 07:15] LABS: BUN 8 mg/dl (7-24); CARBON DIOXIDE 31 mmol/L (21-32); CHLORIDE 104 mmol/L (98-107); GLUCOSE 120 mg/dL (65-99); POTASSIUM 4.4 mmol/L (3.5-5.1); SODIUM 141 mmol/L (136-145)
[2017-01-11 07:16] LABS: EST GLOM FILT AFRICAN AMERICAN > 60 ml/min
[2017-01-11 07:17] LABS: INTERNATIONAL NORM RATIO 1.1 (2.0-3.5); PROTHROMBIN TIME 11.2 SECONDS (9.0-12.4)
[2017-01-11 08:00] VITALS: BP 148/94
[2017-01-11 12:00] VITALS: BP 156/96
[2017-01-11 16:00] VITALS: BP 152/88
[2017-01-11 20:00] VITALS: BP 144/88
[2017-01-12] VITALS: BP 138/77
[2017-01-12 07:03] LABS: HEMOGLOBIN 11.5 g/dl (14.0-18.0); LYMPH # 0.7 10*3/uL (1.3-4.4); MEAN CELL VOLUME 91.1 fl (80.0-94.0); MEAN CORPUSCULAR HGB 29.1 pg (27.0-31.0); MEAN CORPUSCULAR HGB CONC 31.9 g/dl (33.0-37.0); MEAN PLATELET VOLUME 10.4 fl (9.6-12.3); MONO # 0.6 10*3/uL (0.1-1.0); MONO % 13.7 % (3.0-9.0); NEUT # 2.8 10*3/uL (2.3-7.9); NEUT % 68.1 % (47.0-73.0); PLATELET COUNT AUTOMATED 246 10*3/uL (130-400); RED BLOOD COUNT 3.95 10*6/uL (4.50-5.90); RED CELL DISTRI WIDTH 14.4 % (0-14.5); WHITE BLOOD COUNT 4.1 10*3/uL (4.8-10.8)
[2017-01-12 07:18] LABS: BUN 9 mg/dl (7-24); CARBON DIOXIDE 32 mmol/L (21-32); CHLORIDE 102 mmol/L (98-107); EST GLOM FILT AFRICAN AMERICAN > 60 ml/min; GLUCOSE 99 mg/dL (65-99); POTASSIUM 3.9 mmol/L (3.5-5.1); SODIUM 141 mmol/L (136-145)
[2017-01-12 08:00] VITALS: BP 152/90
[2017-01-12] MEDS ORDERED: D-1000 185 MG-11 TAB PO (11:55)
[2017-01-12] MEDS ORDERED: DOXYCYCLINE100 M3 PO (11:55)
[2017-01-12] MEDS ORDERED: PREDNISONE10 MG PO (11:55)
== END 2017-01-12 12:53 | disposition home or self-care (01) | DRG 871 ==
LOC: ED 18:25 → 5E 19:31 → EDHOLD 19:31 → 5E 19:50
PROVIDERS: Family Medicine; Hospitalist; Internal Medicine; Nurse Practitioner Family
DX: A41.9 Sepsis, unspecified organism (principal); J18.9 Pneumonia, unspecified organism; J96.11 Chronic respiratory failure with hypoxia; D70.9 Neutropenia, unspecified; J44.0 Chronic obstructive pulmonary disease with (acute) lower respiratory infection; J44.1 Chronic obstructive pulmonary disease with (acute) exacerbation; R65.20 Severe sepsis without septic shock; R73.9 Hyperglycemia, unspecified; F10.10 Alcohol abuse, uncomplicated; D64.9 Anemia, unspecified; H91.90 Unspecified hearing loss, unspecified ear; F17.210 Nicotine dependence, cigarettes, uncomplicated; I10 Essential (primary) hypertension; H54.41 Blindness, right eye, normal vision left eye; Z99.81 Dependence on supplemental oxygen; Z82.49 Family history of ischemic heart disease and other diseases of the circulatory system; Z80.41 Family history of malignant neoplasm of ovary; Z79.899 Other long term (current) drug therapy

== ENCOUNTER 2017-01-22 00:33 | Emergency (ER) | payer OTHER ==
[~2017-01-22] VITALS: Ht 172.7 cm; Wt 59.6 kg
--- NOTE | ~2017-01-22 | EKG ---
[place], [place] ELECTROCARDIOGRAM REPORT NAME: NICOLE AGUILA UNIT #: [id number] ROOM: 522 DOCTOR: JAI SOMERS MD BIRTHDATE: [birth year] DOS: 01/22/2017 TIME: 1:17:32 Normal sinus rhythm. Left axis deviation. Right bundle branch block with nonspecific ST-T changes. JAI SOMERS MD CM:EKGRPT:ELECTROCARDIOGRAM REPORT 1415 1453 JAI SOMERS MD
[~2017-01-22 00:33] MED LIST changes: +D-1000 185 MG-11 TAB PO; +DULE1ARO INH
[2017-01-22 00:57] VITALS: BP 135/93
[2017-01-22 01:18] LABS: BASO % 0.4 % (0.0-1.0); EOS % 0.4 % (1.0-4.0); HEMATOCRIT 40.5 % (42.0-52.0); HEMOGLOBIN 13.4 g/dl (14.0-18.0); IG # 0.1 10*3/uL (0.0-0.1); LYMPH # 3.1 10*3/uL (1.3-4.4); LYMPH % 33.6 % (27.0-41.0); MEAN CELL VOLUME 87.9 fl (80.0-94.0); MEAN CORPUSCULAR HGB 29.1 pg (27.0-31.0); MEAN CORPUSCULAR HGB CONC 33.1 g/dl (33.0-37.0); MEAN PLATELET VOLUME 10.2 fl (9.6-12.3); MONO # 1.2 10*3/uL (0.1-1.0); MONO % 12.9 % (3.0-9.0); NEUT # 4.8 10*3/uL (2.3-7.9); PLATELET COUNT AUTOMATED 399 10*3/uL (130-400); RED BLOOD COUNT 4.61 10*6/uL (4.50-5.90); RED CELL DISTRI WIDTH 14.3 % (0-14.5); WHITE BLOOD COUNT 9.2 10*3/uL (4.8-10.8)
[2017-01-22 01:40] LABS: ALBUMIN 3.4 gm/dl (3.1-4.5); ALKALINE PHOSPHATASE 70 U/L (45-117); BILIRUBIN, TOTAL 0.3 mg/dl (0.2-1.0); BUN 7 mg/dl (7-24); CARBON DIOXIDE 26 mmol/L (21-32); CHLORIDE 97 mmol/L (98-107); EST GLOM FILT AFRICAN AMERICAN > 60 ml/min; GLUCOSE 91 mg/dL (65-99); POTASSIUM 4.2 mmol/L (3.5-5.1); SGOT/AST 33 IU/L (3-35); SGPT/ALT 38 U/L (12-78); SODIUM 134 mmol/L (136-145)
[2017-01-22 01:52] LABS: TROPONIN I < 0.015 ng/ml (<0.045)
[2017-01-22 03:40] VITALS: BP 86/59
[2017-01-22 04:00] VITALS: BP 86/59
== END 2017-01-22 03:16 | disposition admitted as inpatient to this hospital (09) ==
LOC: ED 00:33 → EDHOLD 02:39 → 5E 02:51
PROVIDERS: Emergency Medicine
DX: R07.9 Chest pain, unspecified (principal); R06.02 Shortness of breath; J44.9 Chronic obstructive pulmonary disease, unspecified; I12.9 Hypertensive chronic kidney disease with stage 1 through stage 4 chronic kidney disease, or unspecified chronic kidney disease; N18.9 Chronic kidney disease, unspecified; F17.210 Nicotine dependence, cigarettes, uncomplicated; Z79.899 Other long term (current) drug therapy

== ENCOUNTER 2017-06-28 10:55 | Emergency (ER) | payer OTHER ==
[~2017-06-28] VITALS: Ht 172.7 cm; Wt 61.2 kg
[~2017-06-28 10:55] MED LIST changes: -DULERA 200 MCG8.8 GM INH; -INCRUSE ELLI62.5 MCG INH
[2017-06-28 11:27] LABS: BASO # 0.1 10*3/uL (0.0-0.1); BASO % 0.9 % (0.0-1.0); EOS # 0.1 10*3/uL (0.0-0.4); EOS % 0.9 % (1.0-4.0); HEMATOCRIT 42.6 % (42.0-52.0); HEMOGLOBIN 14.1 g/dl (14.0-18.0); LYMPH # 1.3 10*3/uL (1.3-4.4); LYMPH % 23.8 % (27.0-41.0); MEAN CELL VOLUME 87.3 fl (80.0-94.0); MEAN CORPUSCULAR HGB 28.9 pg (27.0-31.0); MEAN CORPUSCULAR HGB CONC 33.1 g/dl (33.0-37.0); MEAN PLATELET VOLUME 10.7 fl (9.6-12.3); MONO # 0.9 10*3/uL (0.1-1.0); MONO % 16.1 % (3.0-9.0); NEUT # 3.2 10*3/uL (2.3-7.9); NEUT % 58.1 % (47.0-73.0); PLATELET COUNT AUTOMATED 247 10*3/uL (130-400); RED BLOOD COUNT 4.88 10*6/uL (4.50-5.90); RED CELL DISTRI WIDTH 14.6 % (0-14.5); WHITE BLOOD COUNT 5.5 10*3/uL (4.8-10.8)
[2017-06-28 11:29] LABS: ACT PARTIAL THROMBO TIME 27.7 SECONDS (20.8-31.5); ALBUMIN 3.6 gm/dl (3.1-4.5); ALKALINE PHOSPHATASE 77 U/L (45-117); BUN 12 mg/dl (7-24); CHLORIDE 101 mmol/L (98-107); CREATININE 0.86 mg/dL (0.70-1.30); INTERNATIONAL NORM RATIO 1.1 (2.0-3.5); POTASSIUM 4.6 mmol/L (3.5-5.1); SGOT/AST 26 IU/L (3-35); SGPT/ALT 35 U/L (12-78); SODIUM 138 mmol/L (136-145); TOTAL PROTEIN 7.7 gm/dL (6.4-8.2)
[2017-06-28 11:30] LABS: TROPONIN I < 0.015 ng/ml (<0.045)
[2017-06-28] MEDS ORDERED: INCRUSE ELLI62.5 MCG INH (11:45)
[2017-06-28] MEDS ORDERED: DULERA 200 MCG8.8 GM INH (11:45)
[2017-06-28] MEDS ORDERED: PROAIR HFA8.5 GM INH (11:46)
[2017-06-28] MEDS ORDERED: LISINOPRIL5 MG PO (11:47)
== END 2017-06-28 14:35 | disposition home or self-care (01) ==
LOC: ED 10:55
PROVIDERS: Emergency Medicine
DX: R55 Syncope and collapse (principal); J43.9 Emphysema, unspecified; I10 Essential (primary) hypertension; J96.11 Chronic respiratory failure with hypoxia; R73.9 Hyperglycemia, unspecified; F10.10 Alcohol abuse, uncomplicated; F17.210 Nicotine dependence, cigarettes, uncomplicated; Z90.89 Acquired absence of other organs; Z79.899 Other long term (current) drug therapy

== ENCOUNTER → 2017-06-28 | Outpatient (CLI) | payer OTHER ==
[~2017-06-28] MED LIST changes: +DULERA 200 MCG8.8 GM INH; +INCRUSE ELLI62.5 MCG INH
--- NOTE | ~2017-06-28 | EKG ---
[place], [place] ELECTROCARDIOGRAM REPORT NAME: NICOLE AGUILA UNIT #: [id number] ROOM: DOCTOR: MIL JACKSON MD BIRTHDATE: [birth year] DOS: 06/28/2017 TIME: 10:22:39. RATE AND RHYTHM: Normal sinus rhythm at 85 beats per minute. AR interval is 160 milliseconds, QRS duration is 127 milliseconds, corrected QT interval is 389. QRS axis is -94. IMPRESSION: 1. Right bundle branch block. 2. Normal sinus rhythm. 3. Few premature ventricular complexes are noted. MIL JACKSON MD CM:EKGRPT:ELECTROCARDIOGRAM REPORT 1030 1043 MIL JACKSON MD
== END | disposition home or self-care (01) ==
LOC: RESCLI → US 02:13 → RESCLI 11:09
DX: J44.1 Chronic obstructive pulmonary disease with (acute) exacerbation (principal); R55 Syncope and collapse; I10 Essential (primary) hypertension; J40 Bronchitis, not specified as acute or chronic; E86.0 Dehydration

== ENCOUNTER 2017-09-24 12:29 | Inpatient (IN) | payer OTHER ==
[~2017-09-24] VITALS: Ht 172.7 cm; Wt 57.4 kg
--- NOTE | ~2017-09-24 | CON ---
[place], [place] REPORT OF CONSULTATION NAME: NICOLE AGUILA [facility] #: [id number] UNIT #: [id number] ROOM: 407 DOCTOR: DARWIN PUCKETT MDBANG BIRTHDATE: [birth year] DOS: 09/25/2017 PULMONARY CONSULTATION, EVALUATION AND MANAGEMENT CONSULTATION REQUESTED BY: Hospitalist services. REASON FOR CONSULTATION: Assess the patient for exacerbation of COPD. HISTORY OF PRESENT ILLNESS: This 62-year-old white male who has been known to me with history of severe COPD for this patient. The patient has been admitted to the hospital on 09/24/2017. He came into the hospital Emergency Room as he has been noticed with progressive increased symptoms of shortness of breath occurring at home with excessive chest congestion, shortness breath, ongoing for the past 3 days, but the symptoms noted significant worsening with increased wheezing as well. Tightness in the chest was noted. He was also noted with increase in the cough with sputum expectoration, yellowish and greenish in color. The patient does have chest pain scale of 1-10, nonradiating, described in the left side of the chest, worsened with deep breathing. The patient denies symptoms of hemoptysis or chest trauma. This morning as the patient was seen, he stated that he has been feeling somewhat better since admission. However, still noted symptoms of shortness of breath. REVIEW OF SYSTEMS: CONSTITUTIONAL: Fatigue and tiredness noted without any symptoms of fever or chills. EYES: Denies any burning, redness, or tenderness. EARS, NOSE, THROAT SYMPTOMS: Denies sore throat, hoarseness, otalgia, postnasal drainage or epistaxis. The patient has a known history of chronic partial hearing loss. CARDIOVASCULAR: Denies anginal pain, edema or pain of lower extremity. GASTROINTESTINAL SYMPTOMS: Denies dysphagia, nausea, vomiting, diarrhea, abdominal pain, hematemesis, melena, hematochezia or abnormal weight loss. GENITOURINARY SYMPTOMS: No dysuria, suprapubic pain or hematuria. MUSCULOSKELETAL SYMPTOMS: No acute joint pain, redness or tenderness in any of the joints. CENTRAL NERVOUS SYSTEM: No dizziness, headache, diplopia or syncopal episodes. SKIN: There are no abnormal lesions or rashes. Remaining systems were reviewed, they were noted all negative. PAST MEDICAL HISTORY: 1. Last hospitalization in December 2016, treated for acute exacerbation of COPD and acute tracheobronchitis during that hospitalization. 2. Past history of uncomplicated persistent bronchial asthma. 3. Centrilobular emphysema and acute chronic hypoxic respiratory failure, dependency on oxygen 2 liters or higher at times. 4. Essential hypertension. 5. Chronic blindness of the right eye. 6. Chronic moderate hearing loss. [place], [place] REPORT OF CONSULTATION NAME: NICOLE AGUILA UNIT #: [id number] ROOM: 407 DOCTOR: BANG LESTER MD BIRTHDATE: [birth year] SOCIAL HISTORY: The patient is , has 2 children, lives at home and history of alcohol use, illicit drug use. Denies any history of occupation related exposure to any chemicals or dust previously. Tobacco use noted, started at the age of [age] years old for the patient stated he has significantly cut down the tobacco use and smoked only one cigarette in the past couple of days. FAMILY HISTORY: The patient's father at 51 years old with complication of acute myocardial infarction. Mother at the age of 6868 years old with complication related to the ovarian cancer. PAST SURGICAL HISTORY: Noted with therapeutic bronchoscopy previously. MEDICATIONS: The current administered medication of the patient was noted as use of: 1. Lovenox for DVT prophylaxis. 2. Solu-Medrol 80 mg every 8 hours. 3. Zithromax 500 mg IV daily. 4. Rocephin 1 gram IV daily. 5. DuoNeb q. 4h., and other p.r.n. medication for different symptoms were also ordered. DRUG ALLERGY HISTORY: The patient was noted as no known drug allergies. PHYSICAL EXAMINATION: GENERAL: This is a 62-year-old white male patient who has been currently noted to be awake and alert without any acute distress at the present time. Height of 5 feet 8 inches, weight of 126 pounds, BMI of 19. The patient noted excessive coughing during the assessment and also appeared to have excessive chest congestion. VITAL SIGNS: For the patient, which are recorded showed the temperature noted as normal. The respiratory rate of the patient recorded as 18. Heart rate of 115 on admission and this morning noted as 78, blood pressure 129/58-114/84. HEENT: Examination shows head was atraumatic. Eyes nonicterus. The patient noted blindness of the right eye. Ears, nose and throat symptoms of the patient noted with [id number] hearing loss. CARDIOVASCULAR: S1, S2 audible. LUNGS: Noted with moderate decreased breath sounds noted in the lungs bilaterally with expiratory wheezing. No crackles were heard. ABDOMEN: Soft, flat, nontender, bowel sounds present. EXTREMITIES: Noted without any acute edema, clubbing, cyanosis. CENTRAL NERVOUS SYSTEM: Cranial nerves for the patient noted intact except the blindness of the eye and hearing loss. Central nervous system noted otherwise intact. No focal deficit. SKIN: Visible skin was noted without any lesions or rashes. MUSCULOSKELETAL SYMPTOMS: Noted ____ acute deformities. LABORATORY DATA: The arterial blood gas of the patient that was done yesterday in the Emergency Room, 5-liter nasal cannula, pH was noted 7.40, pCO2 of 48.7, pO2 of 41.0. The CBC of the patient that was done yesterday noted as normal [place], [place] REPORT OF CONSULTATION NAME: NICOLE AGUILA UNIT #: [id number] ROOM: [facility] DOCTOR: DAV LESTER MDM BIRTHDATE: [birth year] CBC. CMP of the patient that was done on 09/24/2017, BUN 11, creatinine was normal. Glucose was normal. Chloride of 97. Lactic acid 2.0 yesterday. CBC of patient that was done this morning, WBC count 2.8, hemoglobin 12.5, hematocrit 38.9, platelet count were normal. CMP of the patient this morning, BUN 15, creatinine was normal. CMP yesterday noted normal BUN and creatinine. The chest x-ray of the patient 1 view, which was done in the Emergency Room was reviewed and was noted with increased interstitial markings. CT of the chest was done yesterday for patient as well noted without any evidence of pulmonary embolism. CT scan of the chest was noted with findings of centrilobular emphysema, otherwise, cystic changes for the patient was noted in the upper lungs with irregular interstitial marking for the patient was noted in the lungs bilaterally. The emphysema was noted essentially diffuse. There were no pulmonary nodule, no finding of acute pneumonia of the patient was noted with current CT scan of the chest. Alpha 1 antitrypsin level of the patient that was done in 2016 was noted total level of 119 with MZ phenotype. IMPRESSION: 1. The patient will be currently admitted to the hospital, noted with recurrence of the acute exacerbation of chronic obstructive pulmonary disease, acute and chronic hypoxic respiratory failure with chronic hypercapnic respiratory failure. 2. 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 3. Leukopenia was also noted may be medication related or current acute infection. 4. History of a very low-grade and questionable nicotine dependence as per the patient. 5. General anxiety disorder, chronic; single eye blindness for this patient and other illnesses. PLAN OF TREATMENT: The dose of Solu-Medrol will be decreased to 40 mg q. 8h. Repeat testing of alpha-1 antitrypsin for the patient as an outpatient to be considered and done. The bronchodilators to be continued every 4 hours. Obtain the sputum for Gram stain and culture as well. Additional treatment changes to be done for the patient based on the progression of the illness. Supportive care. Other treatment changes for the patient to be continuously made for the patient as the illness progresses. The patient was encouraged about continued abstinence from tobacco use with current suspicion of alpha 1 antitrypsin carrier disease. [place], [place] REPORT OF CONSULTATION NAME: NICOLE AGUILA UNIT #: [id number] ROOM: 407 DOCTOR: BANG LESTER MD BIRTHDATE: [birth year] BANG GRANADOS MD CM:CONSTR:REPORT OF CONSULTATION 1655 09/26/17 0351 interface
--- NOTE | ~2017-09-24 | PR ---
[place], [place] PROGRESS NOTE NAME: NICOLE AGUILA [facility] #: [id number] UNIT #: [id number] ROOM: 407 DOCTOR: DARWIN PUCKETT MD,BANG BIRTHDATE: [birth year] DOS: 09/26/2017 SUBJECTIVE: The patient noted comfortable at this time, noted with reduction in symptoms of coughing, shortness of breath, and wheezing. Denies symptoms of chest pain or hemoptysis. Denies symptoms of abdominal pain. Coughing has been noted with small sputum expectoration. OBJECTIVE: VITAL SIGNS: Normal temperature, respiratory rate 18, heart rate 88, blood pressure 131/89, pulse ox saturation of 98% on 3 liters cannula. HEENT: No acute change. NECK: Supple. CARDIOVASCULAR: S1, S2 audible. LUNGS: Noted without any crackles. Moderate decreased breath sounds, expiratory wheezing. ABDOMEN: Soft, nontender. EXTREMITIES: Without any acute edema. IMPRESSION: 1. Resolving acute exacerbation of chronic obstructive pulmonary disease, acute tracheobronchitis, progressive. 2. Mild leukopenia, viral in origin or other etiologies. PLAN OF MANAGEMENT: No changes in plan of therapy of the patient at this time. Continue the patient's current plan of management, care and other therapy. Supportive care and other treatments. BANG GRANADOS MD CM:PNTRANS 99 1 BANG PUCKETT MD 09/27/17 044 interface
--- NOTE | ~2017-09-24 | CON ---
[place], [place] REPORT OF CONSULTATION NAME: NICOLE AGUILA [facility] #: [id number] UNIT #: [id number] ROOM: 407 DOCTOR: TOBIAS DELEON MD BIRTHDATE: [birth year] DOS: 09/26/2017 REASON FOR CONSULTATION: Abnormal electrocardiogram, chest pain. HISTORY OF PRESENT ILLNESS: The patient is a 62-year-old man who has a history of severe COPD. Per notes from his spring coverer, Dr. Machado, he is a carrier for alpha 1 antitrypsin deficiency with an MZ variant. He has a long history of cigarette abuse of up to 1-1/2 packs of cigarettes a day. He states that in recent times, he has cut down to 1 cigarette every few days. In addition, he had occupational lung exposure working in the [employer], [employer], etc. This has culminated in a severe obstructive lung disease. The patient states that he does have pleuritic chest pains. On this admission, he was noted to have abnormal electrocardiogram with sinus tachycardia, right bundle-branch block and leftward axis along with biatrial enlargement. The computer indicated that there may be some acute ST change and therefore Cardiology was consulted. Serial cardiac biomarkers have been repeated on numerous occasions and all have been normal. Several EKGs have shown no further change in his STs. The patient does note chronic chest pain, which gets worse with a deep breath or cough. PAST MEDICAL HISTORY: Includes: 1. Chronic respiratory failure. The patient states that he is on home oxygen constantly. 2. Severe COPD. 3. Carrier for alpha-1 antitrypsin deficiency, MZ variant. 4. Tobacco abuse. The patient currently smokes 1 cigarette every few days. 5. History of blindness in right eye. 6. Chart indicates that the patient has had pericarditis, but the patient denies any history of inflammation around his heart, pericarditis or fluid around his heart. 7. History of hernia repair. 8. History of tonsillectomy. MEDICATIONS: Prior to admission include albuterol 2 puffs q. 4 hours p.r.n., Dulera 200/5 two puffs b.i.d., Incruse Ellipta inhaled daily and lisinopril 2.5 mg daily. ALLERGIES: The patient has no known drug allergies. FAMILY HISTORY: The patient's mother of ovarian cancer. His father had a history of 3 heart attacks, which resulted in his at age 51. His brother had a history of an MA and another brother had a history of an MA. REVIEW OF SYSTEMS: The patient has monocular vision from a previous injury. He denies any further loss of vision or focal weakness. He has chronic dyspnea and chest pain as noted above. He does have a chronic cough, which is mildly productive. He denies fevers, chills or sweats. He is on home oxygen. He denies hemoptysis or hematemesis. He denies bleeding from his urine or stools. He denies any recent skin rashes. He denies peripheral edema. He denies heat [place], [place] REPORT OF CONSULTATION NAME: NICOLE AGUILA UNIT #: [id number] ROOM: [facility] DOCTOR: TOBIAS DELEON MD BIRTHDATE: [birth year] or cold intolerance and denies polyuria or polydipsia. The remainder of the review of systems is negative except as noted above. SOCIAL HISTORY: The patient does have a history of alcohol use and drinks a few beers every week. He does not use any illicit drugs. He states that at one point he smoked 2-1/2 packs a day and started smoking when he was about 9. He cut down to 1-1/2 packs a day and recently has smoked a cigarette every few days. PHYSICAL EXAMINATION: GENERAL: The patient is a slender white male who looks older than his stated age. VITAL SIGNS: Pulse is 88 and regular, blood pressure is 131/89. He is afebrile. HEENT: Normocephalic and atraumatic. Extraocular muscles are intact. Sclerae are clear. Pupils are equal, round and react to light. The oral mucosa is moist. Tongue is midline. NECK: Supple. He has no jugular distention or hepatojugular reflux. Carotids are full. There are no bruits. There are no neck or supraclavicular masses and no thyromegaly. LUNGS: Respirations are labored at rest and he is tachypneic at rest. He has markedly decreased breath sounds bilaterally with loud bilateral wheezes in all lung bruce. He has a few crackles at the bases. He has no presacral edema. He does have anterior chest wall tenderness that does reproduce much of his chest pain. CARDIOVASCULAR: His heart has very distant tones. It is regular. There is a fourth heart sound. I did not hear a third heart sound or any murmurs or rubs. The PMI could not be felt. There is no precordial heave, lift or thrill. ABDOMEN: Soft and normally active without masses, organomegaly or bruits. EXTREMITIES: Showed no edema. Peripheral pulses are diminished, but palpable in the feet. LABORATORY DATA: I reviewed his electrocardiograms, which do show a sinus rhythm and sinus tachycardia with a right bundle-branch block, leftward axis and biatrial enlargement. I am not convinced that there is any significant acute ST change present. Hemoglobin is 13.1, hematocrit 40.6. There are 4100 white cells and 263,000 platelets present. Sodium is 140, potassium 4.5, chloride 105, CO2 of 29, BUN 15, creatinine 0.68. Total cholesterol is 119, LDL is 37, HDL is 76, triglycerides 32. IMPRESSION: 1. Chest pain, which is almost certainly musculoskeletal in origin. 2. Severe chronic obstructive pulmonary disease, which probably is approaching end-stage. 3. Abnormal electrocardiogram with tachycardia, right bundle-branch block and left anterior fascicular block. I am not convinced that there are any acute ST or T-wave changes present, although he does have evidence for biatrial enlargement. Multiple troponin levels have been normal, indicating a low [place], [place] REPORT OF CONSULTATION NAME: NICOLE AGUILA [place] UNIT #: [id number] ROOM: 407 DOCTOR: TOBIAS DELEON MD BIRTHDATE: [birth year] probability of any acute heart damage. 4. Ongoing cigarette abuse. 5. Probable malnutrition. PLAN: I reviewed the patient's echocardiogram from 09/25/2017. It showed normal left ventricular wall motion and systolic function. There was no evidence for pericarditis. I believe that the patient's EKG changes are likely to be chronic and I do not see any evidence for acute myocardial infarction. At this point, there is nothing much more to add from a cardiac standpoint. Specifically, I do not believe that he would tolerate a stress test. He would not be a candidate for advanced cardiac testing in any case. He cannot lay down to allow us to do any testing. We will be available to see him if needed and I thank the hospitalist group for asking our advice regarding his care. TOBIAS DELEON MD CM:CONSTR:REPORT OF CONSULTATION 1129 09/26/17 1301 interface
--- NOTE | ~2017-09-24 | EKG ---
[place], [place] ELECTROCARDIOGRAM REPORT NAME: NICOLE AGUILA UNIT #: [id number] ROOM: 407 DOCTOR: DARWIN PUCKETT MD,BANG BIRTHDATE: [birth year] DOS: 09/26/2017 ELECTROCARDIOGRAM TIME: 05:51 a.m. Sinus rhythm noted. Heart rate of 78 beats per minute with right bundle branch block and left anterior fascicular block, which were noted as old. BANG GRANADOS MD CM:EKGRPT:ELECTROCARDIOGRAM REPORT 1614 1628 BANG PUCKETT MD
--- NOTE | ~2017-09-24 | PR ---
[place], [place] PROGRESS NOTE NAME: NICOLE AGUILA UNIT #: [id number] ROOM: 407 DOCTOR: MANUELA ESPINOZA DO BIRTHDATE: [birth year] DOS: 09/27/2017 SUBJECTIVE: The patient is seen and examined while sitting in bed. He states his breathing is somewhat improved, though he does not know what anybody has been doing for him. Even after explaining to the patient that he has periodically been getting IV antibiotics and IV steroids, he still does not really understand why he needs to be in the hospital and what anybody has done to help him during his admission. He still has a cough, but he does note that it is less harsh and he is able to ambulate with much less dyspnea on exertion today. OBJECTIVE: VITAL SIGNS: At the time of exam, temperature 97.3, pulse 85, respirations 20, blood pressure 160/90, but pulse ox 95% on 2 liters via nasal cannula. HEENT: Normocephalic, atraumatic. NECK: Supple, nontender. CARDIOVASCULAR: Regular rate and rhythm with no gallops or murmurs or rubs noted. LUNGS: Slight expiratory wheezing. No crackles or rhonchi noted. ABDOMEN: Soft, nontender. EXTREMITIES: No edema, erythema, cyanosis or clubbing noted. IMPRESSION: 1. Resolving acute exacerbation of chronic obstructive pulmonary disease with acute tracheobronchitis/pneumonitis. 2. Improving mild leukopenia. 3. Normocytic anemia. 4. Acute respiratory failure with hypercapnia and hypoxemia. PLAN OF MANAGEMENT: Dr. Granados feels the patient is safe for discharge today, from pulmonary standpoint. Recommend discharge on tapering course of prednisone and oral antibiotics to finish out a course for treatment of tracheobronchitis/pneumonitis. Recommend pulmonology followup within 1-2 weeks. MANUELA ESPINOZA DO [place], [place] PROGRESS NOTE NAME: NICOLE AGUILA UNIT #: [id number] ROOM: 407 DOCTOR: MANUELA ESPINOZA DO BIRTHDATE: [birth year] BANG GRANADOS MD CM:GREGORIO [id number] [id number] MANUELA ESPINOZA DO 09/27/17 1224 interface
--- NOTE | ~2017-09-24 | PR ---
[place], [place] PROGRESS NOTE NAME: NICOLE AGUILA [facility] #: [id number] UNIT #: [id number] ROOM: 407 DOCTOR: DARWIN PUCKETT MD,BANG BIRTHDATE: [birth year] DOS: 09/27/2017 SUBJECTIVE: The patient has been noted with gradual reduction and improvement in the respiratory symptoms. The patient has been noted chronic pain in the chest, shortness of breath, coughing, wheezing all other symptoms were resolving at the present time. Denies symptoms of hemoptysis. Cough has been decreased for this patient progressively. OBJECTIVE: VITAL SIGNS: Normal temperature, respiratory rate 24, heart rate 98, blood pressure 158/88. Pulse oxygen saturation noted 2 liters 99% saturation. HEENT: Examination shows head was atraumatic. Eyes nonicterus. NECK: Supple. CARDIOVASCULAR: S1, S2 audible. LUNGS: Without any wheeze or crackles. ABDOMEN: Soft, nontender. IMPRESSION: 1. Resolving acute exacerbation of chronic obstructive pulmonary disease, acute tracheobronchitis progressively at this time. 2. History of low-grade intermittent nicotine abuse. 3. Chronic hearing loss for the patient and blindness of the right eye as well. PLAN OF MANAGEMENT: From the pulmonary standpoint, the patient could be considered for home discharge on oral antibiotics as well as tapering prednisone. Tobacco cessation was addressed with the patient. Outpatient assessment to be made for the patient. Further assessment, ____ anti-deficiency variant. BANG GRANADOS MD CM:PNTRANS [phone] [id number] BANG PUCKETT MD 09/28/17226 interface
--- NOTE | ~2017-09-24 | EKG ---
[place], [place] ELECTROCARDIOGRAM REPORT NAME: NICOLE AGUILA UNIT #: [id number] ROOM: 407 DOCTOR: DARWIN PUCKETT MD,BANG BIRTHDATE: [birth year] DOS: 09/26/2017 TIME: 6:48 a.m. EKG shows sinus rhythm with the patient's heart rate of 68 beats per minute. Right bundle branch block and left anterior fascicular hemiblock was also noted. Nonspecific ST-T changes. BANG GRANADOS MD CM:EKGRPT:ELECTROCARDIOGRAM REPORT 1613 1623 BANG PUCKETT MD
[~2017-09-24 12:29] MED LIST changes: +DULERA 200 MCG8.8 GM INH; +INCRUSE ELLI62.5 MCG INH; +ZESTRIL2.5 MG PO
[2017-09-24 12:40] VITALS: BP 114/84
[2017-09-24 13:00] VITALS: BP 108/70
[2017-09-24 13:00] LABS: ABG BASE EXCESS 4.7 mmol/L (-2.0-2.0); ABG O2 SATURATION 76.6 % (95-97); ARTERIAL BLOOD GAS PCO2 48.7 mmHg (35-45); ARTERIAL BLOOD GAS PH 7.407 (7.35-7.45)
[2017-09-24 13:01] LABS: HEMATOCRIT 45.6 % (42.0-52.0); HEMOGLOBIN 15.2 g/dl (14.0-18.0); MEAN CELL VOLUME 87.4 fl (80.0-94.0); MEAN CORPUSCULAR HGB 29.1 pg (27.0-31.0); MEAN CORPUSCULAR HGB CONC 33.3 g/dl (33.0-37.0); MEAN PLATELET VOLUME 10.2 fl (9.6-12.3); PLATELET COUNT AUTOMATED 310 10*3/uL (130-400); RED BLOOD COUNT 5.22 10*6/uL (4.50-5.90); RED CELL DISTRI WIDTH 13.8 % (0-14.5); WHITE BLOOD COUNT 5.7 10*3/uL (4.8-10.8)
[2017-09-24 13:19] LABS: ATYPICAL LYMPHS 2 % (0-0); PLATELET SUFFICIENCY NORMAL (NORMAL); TOTAL CELLS COUNTED 100 #CELLS
[2017-09-24 13:20] LABS: ALBUMIN 3.9 gm/dl (3.1-4.5); ALKALINE PHOSPHATASE 87 U/L (45-117); BUN 11 mg/dl (7-24); CHLORIDE 97 mmol/L (98-107); CREATININE 0.82 mg/dL (0.70-1.30); POTASSIUM 4.1 mmol/L (3.5-5.1); SGOT/AST 19 IU/L (3-35); SGPT/ALT 24 U/L (12-78); SODIUM 136 mmol/L (136-145); TOTAL PROTEIN 8.7 gm/dL (6.4-8.2)
[2017-09-24 14:30] VITALS: BP 107/57
[2017-09-24 17:08] VITALS: BP 142/85
[2017-09-24 20:00] VITALS: BP 125/75
[2017-09-25] VITALS: BP 137/88
[2017-09-25 06:22] LABS: BASO % 0.4 % (0.0-1.0); LYMPH # 0.2 10*3/uL (1.3-4.4); LYMPH % 8.5 % (27.0-41.0); MEAN CORPUSCULAR HGB 29.1 pg (27.0-31.0); MEAN CORPUSCULAR HGB CONC 32.1 g/dl (33.0-37.0); MEAN PLATELET VOLUME 10.6 fl (9.6-12.3); MONO # 0.3 10*3/uL (0.1-1.0); MONO % 11.3 % (3.0-9.0); NEUT # 2.3 10*3/uL (2.3-7.9); NEUT % 79.8 % (47.0-73.0); RED BLOOD COUNT 4.29 10*6/uL (4.50-5.90); RED CELL DISTRI WIDTH 13.6 % (0-14.5); WHITE BLOOD COUNT 2.8 10*3/uL (4.8-10.8)
[2017-09-25 06:23] LABS: ALBUMIN 2.9 gm/dl (3.1-4.5); ALKALINE PHOSPHATASE 62 U/L (45-117); BUN 15 mg/dl (7-24); CHLORIDE 105 mmol/L (98-107); CHOLESTEROL 119 mg/dL (<200); CREATININE 0.68 mg/dL (0.70-1.30); FREE T4 0.67 ng/dl (0.76-1.46); HDL CHOLESTEROL 76 mg/dl (40-60); LDL CHOLESTEROL 37 mg/dL (9-159); PHOSPHOROUS 2.7 mg/dL (2.5-4.9); POTASSIUM 4.5 mmol/L (3.5-5.1); SGOT/AST 13 IU/L (3-35); SGPT/ALT 23 U/L (12-78); SODIUM 140 mmol/L (136-145); TOTAL PROTEIN 6.9 gm/dL (6.4-8.2); TRIGLYCERIDES 32 mg/dl (<150); VLDL CHOLESTEROL 6 mg/dL (6-40)
[2017-09-25 06:24] LABS: HEMATOCRIT 38.9 % (42.0-52.0); HEMOGLOBIN 12.5 g/dl (14.0-18.0); MEAN CELL VOLUME 90.7 fl (80.0-94.0); PLATELET COUNT AUTOMATED 214 10*3/uL (130-400)
[2017-09-25 06:28] LABS: THYROID STIM HORMONE (HS) 0.855 uIU/ml (0.358-4.75)
[2017-09-25 07:38] LABS: VITAMIN D, 25-HYDROXY 9.3 ng/mL (30-100)
[2017-09-25 08:00] VITALS: BP 129/58
[2017-09-25 12:00] VITALS: BP 142/83
[2017-09-25 16:00] VITALS: BP 135/75
[2017-09-25 20:00] VITALS: BP 126/74
[2017-09-26] VITALS: BP 134/80
[2017-09-26 05:55] VITALS: BP 145/79
[2017-09-26 06:20] LABS: BASO % 0.2 % (0.0-1.0); HEMATOCRIT 40.6 % (42.0-52.0); HEMOGLOBIN 13.1 g/dl (14.0-18.0); LYMPH # 0.4 10*3/uL (1.3-4.4); LYMPH % 8.6 % (27.0-41.0); MEAN CELL VOLUME 90.6 fl (80.0-94.0); MEAN CORPUSCULAR HGB 29.2 pg (27.0-31.0); MEAN CORPUSCULAR HGB CONC 32.3 g/dl (33.0-37.0); MEAN PLATELET VOLUME 10.2 fl (9.6-12.3); MONO # 0.4 10*3/uL (0.1-1.0); MONO % 9.6 % (3.0-9.0); NEUT # 3.3 10*3/uL (2.3-7.9); NEUT % 81.4 % (47.0-73.0); PLATELET COUNT AUTOMATED 263 10*3/uL (130-400); RED BLOOD COUNT 4.48 10*6/uL (4.50-5.90); RED CELL DISTRI WIDTH 13.8 % (0-14.5); WHITE BLOOD COUNT 4.1 10*3/uL (4.8-10.8)
[2017-09-26 08:00] VITALS: BP 131/89
[2017-09-26 12:00] VITALS: BP 139/75
[2017-09-26 16:00] VITALS: BP 119/72
[2017-09-26 20:00] VITALS: BP 145/79
[2017-09-27] VITALS: BP 137/72
[2017-09-27 08:00] VITALS: BP 160/90
[2017-09-27] MEDS ORDERED: HYDROCODONE-AC1 EAC1 PO (11:47)
[2017-09-27] MEDS ORDERED: DOXYCYCLINE100 M3 PO (11:47)
[2017-09-27] MEDS ORDERED: PREDNISONE10 MG PO (11:47)
[2017-09-27] MEDS ORDERED: PROAIR HFA8.5 GM INH (11:47)
[2017-09-27] MEDS ORDERED: VITAMIN D-32000 UNI1 PO (11:47)
[2017-09-27] MEDS ORDERED: INCRUSE ELLI62.5 MCG INH (11:47)
[2017-09-27] MEDS ORDERED: ZESTRIL2.5 MG PO (11:47)
[2017-09-27] MEDS ORDERED: DULERA 200 MCG8.8 GM INH (11:47)
[2017-09-27 11:58] VITALS: BP 158/88
== END 2017-09-27 13:00 | disposition home or self-care (01) | DRG 871 ==
LOC: ED 12:29 → EDHOLD 16:12 → 4E 16:12
PROVIDERS: Emergency Medicine; Internal Medicine
DX: A41.9 Sepsis, unspecified organism (principal); J18.9 Pneumonia, unspecified organism; J96.21 Acute and chronic respiratory failure with hypoxia; J96.22 Acute and chronic respiratory failure with hypercapnia; J44.1 Chronic obstructive pulmonary disease with (acute) exacerbation; J44.0 Chronic obstructive pulmonary disease with (acute) lower respiratory infection; I45.2 Bifascicular block; E87.8 Other disorders of electrolyte and fluid balance, not elsewhere classified; R73.9 Hyperglycemia, unspecified; H54.61 Unqualified visual loss, right eye, normal vision left eye; I10 Essential (primary) hypertension; M54.6 Pain in thoracic spine; F17.210 Nicotine dependence, cigarettes, uncomplicated; J20.9 Acute bronchitis, unspecified; H91.90 Unspecified hearing loss, unspecified ear; E88.01 Alpha-1-antitrypsin deficiency; F41.1 Generalized anxiety disorder; Z71.6 Tobacco abuse counseling; Z99.81 Dependence on supplemental oxygen; Z79.899 Other long term (current) drug therapy; Z82.49 Family history of ischemic heart disease and other diseases of the circulatory system; Z80.9 Family history of malignant neoplasm, unspecified

== ENCOUNTER 2017-11-22 23:05 | Inpatient (IN) | payer OTHER ==
[~2017-11-22] VITALS: Ht 170.1 cm; Wt 57.2 kg
--- NOTE | ~2017-11-22 | O ---
[place], [place] OPERATIVE NOTE NAME: NICOLE AGUILA UNIT #: [id number] ROOM: 412 DOCTOR: LADONNA DE LA VEGAVISH BIRTHDATE: [birth year] DOS: 11/24/2017 GASTROENDOSCOPIC REPORT HISTORY OF PRESENT ILLNESS: This is a 62-year-old patient who presented with one of the symptomatology is pain, epigastric distress, noncardiac chest pain. The patient with a history of alcohol and nicotine dependency. Alcohol level at time of admission is 240+. His chest x-ray, no acute pulmonary process. His comprehensive metabolic panel, electrolytes balanced. Liver function tests surprisingly normal. Troponin within normal limit. INR is 1.0. CBC differential white blood cell 6, H and H of 15 and 46. PAST MEDICAL HISTORY: Blind in the right eye, back pain, atypical chest pain, COPD, hypertension. SOCIAL HISTORY: Alcohol and nicotine dependency. PAST SURGICAL HISTORY: Tonsillectomy, hernia repair. FAMILY HISTORY: Noncontributory. MEDICATIONS: Reviewed. ALLERGIES: No known medication. PROCEDURE: Today's procedure part of investigation is panendoscopy plus biopsy. PREMEDICATION: Versed and propofol. SCOPE: Olympus forward-viewing gastroscope Q10 video. REPORT: After putting the patient in left lateral position and application of lubricant to the scope, the scope was introduced. Thereafter, under direct visualization, advanced through the length of esophagus without difficulty. Distal esophageal linear ulcers, signifying reflux, distal esophagitis was identified. Hiatal hernia was noticed. Gastric pouch was entered. Gastritis seen. Antral biopsy obtained. Duodenitis noticed, photographed. Air was suctioned out. The patient was extubated, tolerated the procedure well. IMPRESSION: Gastroesophageal reflux disease (GERD), distal esophagitis secondary to reflux, distal esophageal ulcers secondary to reflux, hiatal hernia, gastritis and duodenitis. PLAN AND DISCUSSION: Protonix 40 mg daily. Gaviscon 1 at bedtime. The patient is going to be advised to abstain from alcohol and nicotine. I sincerely doubt if he is going to be compliant. His diet is going to be GERD, antireflux, elevation of the head of the bed 6 inch all time and clinical reassessment. [place], [place] OPERATIVE NOTE NAME: NICOLE AGUILA UNIT #: [id number] ROOM: [facility] DOCTOR: VISH DOUGHERTY MD BIRTHDATE: [birth year] VISH DOUGHERTY MD CM:OPRECORD:OPERATIVE NOTE 1830 09 VISH DOUGHERTY MD 11/24/17 2209 interface
--- NOTE | ~2017-11-22 | ST ---
[place], [place] EXERCISE STRESS TEST REPORT NAME: NICOLE AGUILA [facility] #: [id number] UNIT #: [id number] ROOM: 412 DOCTOR: ROSANGELA MYRICK MD BIRTHDATE: [birth year] DOS: 11/24/2017 LEXISCAN STRESS EKG REFERRING PHYSICIAN: Dr. García. INDICATION: Central chest pain. The patient underwent standard protocol Lexiscan stress EKG. The patient's baseline EKG showed normal sinus rhythm, right bundle branch block. The patient's resting heart rate is 97 with a blood pressure of 126/68. The patient's peak heart rate was 119 with a blood pressure 100/62. The patient had no chest pain, no arrhythmias, and no significant EKG changes. SUMMARY OF FINDINGS: Unremarkable Lexiscan stress EKG. Please see separate report for perfusion scan results. ROSANGELA MYRICK MD CM:STRESS:EXERCISE STRESS TEST REPORT 1403 0120 ROSANGELA MYRICK MD
[2017-11-22 23:05] VITALS: BP 125/78
[~2017-11-22 23:05] MED LIST changes: +HYDROCODONE-AC1 EAC1 PO; +VITAMIN D-32000 UNI1 PO
[2017-11-22 23:25] LABS: BASO % 0.6 % (0.0-1.0); EOS # 0.1 10*3/uL (0.0-0.4); EOS % 0.8 % (1.0-4.0); HEMATOCRIT 46.3 % (42.0-52.0); HEMOGLOBIN 15.2 g/dl (14.0-18.0); LYMPH # 2.3 10*3/uL (1.3-4.4); LYMPH % 35.8 % (27.0-41.0); MEAN CELL VOLUME 87.9 fl (80.0-94.0); MEAN CORPUSCULAR HGB 28.8 pg (27.0-31.0); MEAN CORPUSCULAR HGB CONC 32.8 g/dl (33.0-37.0); MEAN PLATELET VOLUME 9.9 fl (9.6-12.3); MONO # 0.8 10*3/uL (0.1-1.0); MONO % 13.1 % (3.0-9.0); NEUT # 3.2 10*3/uL (2.3-7.9); NEUT % 49.1 % (47.0-73.0); PLATELET COUNT AUTOMATED 298 10*3/uL (130-400); RED BLOOD COUNT 5.27 10*6/uL (4.50-5.90); RED CELL DISTRI WIDTH 14.7 % (0-14.5); WHITE BLOOD COUNT 6.4 10*3/uL (4.8-10.8)
[2017-11-22 23:26] VITALS: BP 92/56
[2017-11-22 23:34] LABS: ACT PARTIAL THROMBO TIME 27.5 SECONDS (20.8-31.5)
[2017-11-22 23:40] LABS: ALBUMIN 4.1 gm/dl (3.1-4.5); ALKALINE PHOSPHATASE 89 U/L (45-117); BUN 9 mg/dl (7-24); CHLORIDE 91 mmol/L (98-107); CREATININE 0.78 mg/dL (0.70-1.30); POTASSIUM 3.8 mmol/L (3.5-5.1); SGOT/AST 30 IU/L (3-35); SGPT/ALT 35 U/L (12-78); SODIUM 132 mmol/L (136-145); TOTAL PROTEIN 8.3 gm/dL (6.4-8.2)
[2017-11-22 23:46] LABS: TROPONIN I < 0.015 ng/ml (<0.045)
[2017-11-22 23:48] VITALS: BP 98/63
[2017-11-23] VITALS (8 sets, daily range): BP systolic 94–112; BP diastolic 60–79
[2017-11-23 05:50] LABS: ALKALINE PHOSPHATASE 65 U/L (45-117); BUN 7 mg/dl (7-24); CHLORIDE 100 mmol/L (98-107); POTASSIUM 3.5 mmol/L (3.5-5.1); SGOT/AST 22 IU/L (3-35); SGPT/ALT 26 U/L (12-78); SODIUM 136 mmol/L (136-145); TOTAL PROTEIN 5.9 gm/dL (6.4-8.2)
[2017-11-23 06:30] LABS: BASO # 0.1 10*3/uL (0.0-0.1); BASO % 1.2 % (0.0-1.0); EOS # 0.1 10*3/uL (0.0-0.4); EOS % 2.5 % (1.0-4.0); LYMPH % 46.3 % (27.0-41.0); MEAN CELL VOLUME 88.1 fl (80.0-94.0); MEAN CORPUSCULAR HGB 29.4 pg (27.0-31.0); MEAN CORPUSCULAR HGB CONC 33.3 g/dl (33.0-37.0); MEAN PLATELET VOLUME 10.5 fl (9.6-12.3); MONO # 0.6 10*3/uL (0.1-1.0); MONO % 14.8 % (3.0-9.0); NEUT # 1.5 10*3/uL (2.3-7.9); PLATELET COUNT AUTOMATED 227 10*3/uL (130-400); RED BLOOD COUNT 4.36 10*6/uL (4.50-5.90); RED CELL DISTRI WIDTH 14.6 % (0-14.5); WHITE BLOOD COUNT 4.3 10*3/uL (4.8-10.8)
[2017-11-23 06:32] LABS: HEMATOCRIT 38.4 % (42.0-52.0); HEMOGLOBIN 12.8 g/dl (14.0-18.0)
[2017-11-24] VITALS (7 sets, daily range): BP systolic 101–148; BP diastolic 68–96
[2017-11-24 06:38] LABS: HEMATOCRIT 43.7 % (42.0-52.0); MEAN CELL VOLUME 89.9 fl (80.0-94.0); MEAN CORPUSCULAR HGB 28.8 pg (27.0-31.0); MEAN PLATELET VOLUME 10.3 fl (9.6-12.3); PLATELET COUNT AUTOMATED 232 10*3/uL (130-400); RED BLOOD COUNT 4.86 10*6/uL (4.50-5.90); RED CELL DISTRI WIDTH 14.7 % (0-14.5); WHITE BLOOD COUNT 4.3 10*3/uL (4.8-10.8)
[2017-11-24 06:47] LABS: ALBUMIN 3.8 gm/dl (3.1-4.5); ALKALINE PHOSPHATASE 78 U/L (45-117); BUN 10 mg/dl (7-24); CHLORIDE 98 mmol/L (98-107); LIPASE 97 U/L (73-393); POTASSIUM 3.6 mmol/L (3.5-5.1); SGOT/AST 19 IU/L (3-35); SGPT/ALT 28 U/L (12-78); SODIUM 137 mmol/L (136-145); TOTAL PROTEIN 7.8 gm/dL (6.4-8.2)
[2017-11-24 07:12] LABS: PLATELET SUFFICIENCY NORMAL (NORMAL); TOTAL CELLS COUNTED 100 #CELLS
[2017-11-24] MEDS ORDERED: MUCINEX1200 M1 PO (19:41)
[2017-11-24] MEDS ORDERED: PROTONIX40 MG PO (19:41)
[2017-11-24] MEDS ORDERED: PREDNISONE10 MG PO (19:41)
[2017-11-24] MEDS ORDERED: GAVISCON ES TA1 EACH PO (19:41)
== END 2017-11-24 20:09 | disposition home or self-care (01) | DRG 191 ==
LOC: ED 23:05 → 4E 11-23 00:11 → EDHOLD 11-23 00:11 → 4E 11-23 00:28
PROVIDERS: Emergency Medicine; Emergency Medicine Emergency Medical Services; Internal Medicine
PROC: 0DB68ZX Excision of Stomach, Via Natural or Artificial Opening Endoscopic, Diagnostic (ICD-10-PCS; principal; 2017-11-24)
PROC: 4A02XM4 Measurement of Cardiac Total Activity, External Approach (ICD-10-PCS; 2017-11-24)
PROC: 3E073KZ Introduction of Other Diagnostic Substance into Coronary Artery, Percutaneous Approach (ICD-10-PCS; 2017-11-24)
DX: J44.1 Chronic obstructive pulmonary disease with (acute) exacerbation (principal); J96.10 Chronic respiratory failure, unspecified whether with hypoxia or hypercapnia; E87.8 Other disorders of electrolyte and fluid balance, not elsewhere classified; R65.10 Systemic inflammatory response syndrome (SIRS) of non-infectious origin without acute organ dysfunction; Z99.81 Dependence on supplemental oxygen; E87.1 Hypo-osmolality and hyponatremia; I45.2 Bifascicular block; R07.9 Chest pain, unspecified; R00.0 Tachycardia, unspecified; I10 Essential (primary) hypertension; F10.10 Alcohol abuse, uncomplicated; K44.9 Diaphragmatic hernia without obstruction or gangrene; K29.70 Gastritis, unspecified, without bleeding; K29.80 Duodenitis without bleeding; F10.120 Alcohol abuse with intoxication, uncomplicated; F41.9 Anxiety disorder, unspecified; I45.10 Unspecified right bundle-branch block; K21.0 Gastro-esophageal reflux disease with esophagitis; H54.7 Unspecified visual loss; Z87.01 Personal history of pneumonia (recurrent); Z90.89 Acquired absence of other organs; Z82.49 Family history of ischemic heart disease and other diseases of the circulatory system; Z79.899 Other long term (current) drug therapy; Z80.8 Family history of malignant neoplasm of other organs or systems; Z72.0 Tobacco use

== ENCOUNTER 2017-12-17 12:06 | Emergency (ER) | payer OTHER ==
[~2017-12-17] VITALS: Ht 175.2 cm; Wt 54.4 kg
[~2017-12-17 12:06] MED LIST changes: +GAVISCON ES TA1 EACH PO; +MUCINEX1200 M1 PO; +PROTONIX40 MG PO
[2017-12-17] MEDS ORDERED: CYCLOBENZAPRINE10 MG PO (14:17)
== END 2017-12-17 14:48 | disposition home or self-care (01) ==
LOC: ED 12:06
DX: R07.89 Other chest pain (principal); M25.512 Pain in left shoulder; F17.210 Nicotine dependence, cigarettes, uncomplicated; Z98.890 Other specified postprocedural states; Z90.89 Acquired absence of other organs; Z79.899 Other long term (current) drug therapy; Z99.81 Dependence on supplemental oxygen

== ENCOUNTER 2018-03-21 16:16 | Inpatient (IN) | payer OTHER ==
[~2018-03-21] VITALS: Ht 162.5 cm; Wt 54.4 kg
--- NOTE | ~2018-03-21 | EKG ---
[place], [place] ELECTROCARDIOGRAM REPORT NAME: NICOLE AGUILA UNIT #: [id number] ROOM: 529 DOCTOR: POLO DRAFT REPORT BIRTHDATE: [birth year] [facility] Test Date: 2018-03-21 Test Time: 19:18:32 Pat Name: NICOLE AGUILA Department: Room: 529 Gender: M Ship'S Officer: Karla Mays : 1955 Requested By: DAVID GLYNN Order Number: [id number] Reading MD: Jv Erickson MD Measurements Intervals [place] Rate: 112 P: 86 ID: 186 QRS: -94 QRSD: 117 T: 68 QT: 333 QTc: 455 Interpretive Statements Sinus tachycardia Right atrial enlargement Right bundle branch block ST elevation, consider inferior injury No change from earlier ECG this date. Electronically Signed On 03-21-2018 19:57:19 PDT by Jv Erickson MD CM:EKGRPT:ELECTROCARDIOGRAM REPORT 17 56 DAVID CUELLAR DRAFT REPORT DAVID GLYNN MD
--- NOTE | ~2018-03-21 | EKG ---
[place], [place] ELECTROCARDIOGRAM REPORT NAME: NICOLE AGUILA UNIT #: [id number] ROOM: 529 DOCTOR: POLO DRAFT REPORT BIRTHDATE: [birth year] [facility] Test Date: 2018-03-22 Test Time: 10:13:22 Pat Name: NICOLE AGUILA Department: Room: 529 1 Gender: M Inspector Floor: Joy Dorsey : 1955 Requested By: SILVIO BANKS Order Number: [id number] Reading MD: Jv Erickson MD Measurements Intervals [place] Rate: 74 P: 84 [place]: 164 QRS: -64 QRSD: 127 T: 58 QT: 395 QTc: 439 Interpretive Statements Sinus rhythm Probable biatrial enlargement RBBB and LAFB Artifact in lead(s) V1,V2 Compared to ECG 03/21/2018 19:18:32 Left anterior fascicular block now present Sinus tachycardia no longer present Electronically Signed On 03-22-2018 19:08:04 PDT by Jv Erickson MD CM:EKGRPT:ELECTROCARDIOGRAM REPORT 1013 1908 SILVIO SAGASTUME DRAFT REPORT SILVIO BANKS DO
--- NOTE | ~2018-03-21 | EKG ---
[place], [place] ELECTROCARDIOGRAM REPORT NAME: NICOLE AGUILA UNIT #: [id number] ROOM: 529 DOCTOR: POLO DRAFT REPORT BIRTHDATE: [birth year] [facility] Test Date: 2018-03-21 Test Time: 16:25:49 Pat Name: NICOLE AGIULA Department: Room: 529 Gender: M Chemical Processing Supervisor: Karla Mays : 1955 Requested By: DAVID GLYNN Order Number: [id number] Reading MD: Jv Erickson MD Measurements Intervals [place] Rate: 110 P: 87 [place]: 191 QRS: -92 QRSD: 122 T: 73 QT: 342 QTc: 463 Interpretive Statements Sinus tachycardia Right atrial enlargement Right bundle branch block Electronically Signed On 03-21-2018 19:50:27 PDT by Jv Erickson MD CM:EKGRPT:ELECTROCARDIOGRAM REPORT 1625 1950 DAVID CUELLAR DRAFT REPORT DAVID GLYNN MD
--- NOTE | ~2018-03-21 | EKG ---
[place], [place] ELECTROCARDIOGRAM REPORT NAME: NICOLE AGUILA UNIT #: [id number] ROOM: 529 DOCTOR: POLO DRAFT REPORT BIRTHDATE: [birth year] [facility] Test Date: 2018-03-21 Test Time: 22:58:30 Pat Name: NICOLE AGUILA Department: Room: 529 Gender: M Underground Electrician: SS RESP : 1955 Requested By: DAVID GLYNN Order Number: [id number] Reading MD: Jv Erickson MD Measurements Intervals [place] Rate: 101 P: 85 [place]: 191 QRS: -94 QRSD: 124 T: 72 QT: 357 QTc: 463 Interpretive Statements Sinus tachycardia Right atrial enlargement Right bundle branch block Baseline wander in lead(s) V1 Compared to ECG 03/21/2018 19:18:32 No significant changes Electronically Signed On 03-22-2018 18:55:52 PDT by Jv Erickson MD CM:EKGRPT:ELECTROCARDIOGRAM REPORT 1855 DAVID CUELLAR DRAFT REPORT DAVID GLYNN MD
[~2018-03-21 16:16] MED LIST changes: +CYCLOBENZAPRINE10 MG PO
[2018-03-21 16:36] LABS: BASO % 0.9 % (0.0-1.0); EOS % 0.7 % (1.0-4.0); HEMATOCRIT 39.1 % (42.0-52.0); HEMOGLOBIN 13.4 g/dl (14.0-18.0); LYMPH # 1.1 10*3/uL (1.3-4.4); MEAN CELL VOLUME 87.5 fl (80.0-94.0); MEAN CORPUSCULAR HGB CONC 34.3 g/dl (33.0-37.0); MEAN PLATELET VOLUME 9.8 fl (9.6-12.3); MONO # 0.5 10*3/uL (0.1-1.0); MONO % 11.3 % (3.0-9.0); NEUT # 2.5 10*3/uL (2.3-7.9); NEUT % 59.6 % (47.0-73.0); PLATELET COUNT AUTOMATED 373 10*3/uL (130-400); RED BLOOD COUNT 4.47 10*6/uL (4.50-5.90); RED CELL DISTRI WIDTH 13.4 % (0-14.5); WHITE BLOOD COUNT 4.2 10*3/uL (4.8-10.8)
[2018-03-21 16:45] LABS: ACT PARTIAL THROMBO TIME 26.7 SECONDS (20.8-31.5)
[2018-03-21 16:55] LABS: ALBUMIN 3.7 gm/dl (3.1-4.5); ALKALINE PHOSPHATASE 89 U/L (45-117); BUN 5 mg/dl (7-24); CHLORIDE 95 mmol/L (98-107); POTASSIUM 4.1 mmol/L (3.5-5.1); SGOT/AST 57 IU/L (3-35); SGPT/ALT 51 U/L (12-78); SODIUM 131 mmol/L (136-145); TOTAL PROTEIN 8.2 gm/dL (6.4-8.2)
[2018-03-21 16:56] LABS: TROPONIN I < 0.015 ng/ml (<0.045)
[2018-03-21 17:27] VITALS: BP 125/86
[2018-03-21 18:00] VITALS: BP 117/77
[2018-03-21 20:00] VITALS: BP 140/85
[2018-03-22] VITALS: BP 133/82
[2018-03-22 07:09] LABS: BASO # 0.1 10*3/uL (0.0-0.1); BASO % 1.2 % (0.0-1.0); EOS % 0.8 % (1.0-4.0); HEMATOCRIT 37.5 % (42.0-52.0); HEMOGLOBIN 12.5 g/dl (14.0-18.0); LYMPH # 1.4 10*3/uL (1.3-4.4); LYMPH % 28.8 % (27.0-41.0); MEAN CELL VOLUME 90.1 fl (80.0-94.0); MEAN CORPUSCULAR HGB CONC 33.3 g/dl (33.0-37.0); MONO # 0.8 10*3/uL (0.1-1.0); NEUT # 2.6 10*3/uL (2.3-7.9); PLATELET COUNT AUTOMATED 332 10*3/uL (130-400); RED BLOOD COUNT 4.16 10*6/uL (4.50-5.90); RED CELL DISTRI WIDTH 13.4 % (0-14.5); WHITE BLOOD COUNT 4.9 10*3/uL (4.8-10.8)
[2018-03-22 07:26] LABS: CHLORIDE 97 mmol/L (98-107); POTASSIUM 4.1 mmol/L (3.5-5.1); SODIUM 136 mmol/L (136-145)
[2018-03-22 07:40] LABS: ALBUMIN 3.5 gm/dl (3.1-4.5); ALKALINE PHOSPHATASE 83 U/L (45-117); BUN 9 mg/dl (7-24); CREATININE 0.78 mg/dL (0.70-1.30); PHOSPHOROUS 3.2 mg/dL (2.5-4.9); SGOT/AST 41 IU/L (3-35); SGPT/ALT 43 U/L (12-78); TOTAL PROTEIN 7.9 gm/dL (6.4-8.2)
[2018-03-22 12:00] VITALS: BP 136/84
[2018-03-22 16:00] VITALS: BP 142/90
[2018-03-22 20:00] VITALS: BP 132/89
[2018-03-23] VITALS: BP 106/77
[2018-03-23 06:30] LABS: HEMATOCRIT 33.5 % (42.0-52.0); HEMOGLOBIN 11.2 g/dl (14.0-18.0); LYMPH # 0.3 10*3/uL (1.3-4.4); LYMPH % 6.5 % (27.0-41.0); MEAN CELL VOLUME 90.3 fl (80.0-94.0); MEAN CORPUSCULAR HGB 30.2 pg (27.0-31.0); MEAN CORPUSCULAR HGB CONC 33.4 g/dl (33.0-37.0); MEAN PLATELET VOLUME 10.2 fl (9.6-12.3); MONO # 0.2 10*3/uL (0.1-1.0); MONO % 3.8 % (3.0-9.0); NEUT # 3.6 10*3/uL (2.3-7.9); NEUT % 89.2 % (47.0-73.0); PLATELET COUNT AUTOMATED 310 10*3/uL (130-400); RED BLOOD COUNT 3.71 10*6/uL (4.50-5.90); RED CELL DISTRI WIDTH 13.3 % (0-14.5)
[2018-03-23 06:46] LABS: ALBUMIN 3.2 gm/dl (3.1-4.5); ALKALINE PHOSPHATASE 74 U/L (45-117); BUN 7 mg/dl (7-24); CHLORIDE 96 mmol/L (98-107); CREATININE 0.85 mg/dL (0.70-1.30); PHOSPHOROUS 2.5 mg/dL (2.5-4.9); POTASSIUM 3.9 mmol/L (3.5-5.1); SGOT/AST 38 IU/L (3-35); SGPT/ALT 42 U/L (12-78); SODIUM 132 mmol/L (136-145); TOTAL PROTEIN 7.2 gm/dL (6.4-8.2)
[2018-03-23 08:00] VITALS: BP 112/58
[2018-03-23 12:00] VITALS: BP 143/74
[2018-03-23] MEDS ORDERED: Synthroid,Levo50 MCG PO (13:21)
[2018-03-23] MEDS ORDERED: PRINIVIL10 MG PO (13:21)
[2018-03-23] MEDS ORDERED: PREDNISONE10 MG PO (13:21)
[2018-03-23] MEDS ORDERED: AVPAK AZITHROM250 MG PO (13:21)
[2018-05-01] MEDS ORDERED: PROVENTIL HFA6.7 GM INH (14:26)
[2018-05-01] MEDS ORDERED: DOXEPIN HCL10 MG PO (14:27)
[2018-05-01] MEDS ORDERED: DULE1ARO INH (14:27)
[2018-05-01] MEDS ORDERED: INCRUSE ELLI62.5 MCG INH (14:28)
[2018-05-08] MEDS ORDERED: DOXEPIN HCL10 MG PO (11:34)
[2018-05-08] MEDS ORDERED: NORCO 5-325 TA1 EACH PO (11:34)
[2018-05-08] MEDS ORDERED: PREDNISONE10 MG PO (11:34)
[2018-05-08] MEDS ORDERED: AVPAK AZITHROM250 MG PO (11:34)
[2018-05-08] MEDS ORDERED: VISTARIL25 M2 PO (11:34)
[2018-05-08] MEDS ORDERED: Synthroid,Levo50 MCG PO (11:34)
[2018-05-08] MEDS ORDERED: DULE1ARO INH (11:34)
[2018-05-08] MEDS ORDERED: PROVENTIL HFA6.7 GM INH (11:34)
[2018-05-08] MEDS ORDERED: MUCINEX ER600 MG PO (11:34)
[2018-05-08] MEDS ORDERED: PRINIVIL10 MG PO (11:34)
[2018-05-08] MEDS ORDERED: INCRUSE ELLI62.5 MCG INH (11:34)
== END 2018-03-23 13:52 | disposition home or self-care (01) | DRG 191 ==
LOC: ED 16:16 → EDHOLD 17:03 → 5E 17:03
PROVIDERS: Emergency Medicine; Family Medicine
DX: J44.1 Chronic obstructive pulmonary disease with (acute) exacerbation (principal); E87.1 Hypo-osmolality and hyponatremia; J96.10 Chronic respiratory failure, unspecified whether with hypoxia or hypercapnia; R55 Syncope and collapse; E87.8 Other disorders of electrolyte and fluid balance, not elsewhere classified; D72.819 Decreased white blood cell count, unspecified; D64.9 Anemia, unspecified; R00.0 Tachycardia, unspecified; R74.0 Nonspecific elevation of levels of transaminase and lactic acid dehydrogenase [LDH]; J84.10 Pulmonary fibrosis, unspecified; I10 Essential (primary) hypertension; F17.210 Nicotine dependence, cigarettes, uncomplicated; H54.61 Unqualified visual loss, right eye, normal vision left eye; E03.9 Hypothyroidism, unspecified; J45.909 Unspecified asthma, uncomplicated; F10.10 Alcohol abuse, uncomplicated; I45.10 Unspecified right bundle-branch block; F41.9 Anxiety disorder, unspecified; Z79.899 Other long term (current) drug therapy; Z91.81 History of falling; Z99.81 Dependence on supplemental oxygen; Z90.89 Acquired absence of other organs; Z82.49 Family history of ischemic heart disease and other diseases of the circulatory system; Z80.8 Family history of malignant neoplasm of other organs or systems

== ENCOUNTER 2018-04-20 19:42 | Emergency (ER) | payer OTHER ==
[~2018-04-20] VITALS: Ht 160 cm; Wt 54.4 kg
--- NOTE | ~2018-04-20 | EKG ---
[place], [place] ELECTROCARDIOGRAM REPORT NAME: NICOLE AGUILA UNIT #: [id number] ROOM: DOCTOR: EPIPHANY DRAFT REPORT BIRTHDATE: [birth year] [facility] Test Date: 2018-04-20 Test Time: 19:51:09 Pat Name: NICOLE AGUILA Department: ER Room: Gender: M Paste Maker: Mellisa Pizano : 1955 Requested By: OUMOU STORY Order Number: [id number] Reading MD: Des Machado MD Measurements Intervals [place] Rate: 95 P: 93 [place]: 168 QRS: -95 QRSD: 127 T: 59 QT: 367 QTc: 462 Interpretive Statements Sinus rhythm Right atrial enlargement RBBB and LAFB Inferior infarct, acute ST elevation, consider anterolateral injury Baseline wander in lead(s) V1 Compared to ECG 03/22/2018 10:13:22 Myocardial infarct finding now present ST (T wave) deviation now present Electronically Signed On 04-21-2018 8:46:58 PDT by Des Machado MD CM:EKGRPT:ELECTROCARDIOGRAM REPORT [id number] OUMOU SAGASTUME DRAFT REPORT OUMOU STORY DO
--- NOTE | ~2018-04-20 | EKG ---
[place], [place] ELECTROCARDIOGRAM REPORT NAME: NICOLE AGUILA UNIT #: [id number] ROOM: DOCTOR: EPIPHANY DRAFT REPORT BIRTHDATE: [birth year] [facility] Test Date: 2018-04-20 Test Time: 22:47:05 Pat Name: NICOLE AGUILA Department: ER Room: 12 Gender: M Creative Services Coordinator: Mellisa Pizano : 1955 Requested By: OUMOU STORY Order Number: [id number] Reading MD: Des Machado MD Measurements Intervals [place] Rate: 97 P: 82 [place]: 160 QRS: -92 QRSD: 133 T: 54 QT: 371 QTc: 472 Interpretive Statements Sinus rhythm RBBB and LAFB ST elevation suggests acute pericarditis Baseline wander in lead(s) V1 Compared to ECG 03/22/2018 10:13:22 ST (T wave) deviation now present Electronically Signed On 04-21-2018 8:47:10 PDT by Des Machado MD CM:EKGRPT:ELECTROCARDIOGRAM REPORT [id number] 0847 OUMOU SAGASTUME DRAFT REPORT OUMOU STORY DO
[~2018-04-20 19:42] MED LIST changes: +AVPAK AZITHROM250 MG PO; +PRINIVIL10 MG PO; +Synthroid,Levo50 MCG PO
[2018-04-20 19:46] VITALS: BP 113/77
[2018-04-20 20:01] VITALS: BP 105/78
[2018-04-20 20:12] LABS: BASO % 0.9 % (0.0-1.0); EOS # 0.1 10*3/uL (0.0-0.4); EOS % 1.6 % (1.0-4.0); HEMATOCRIT 34.8 % (42.0-52.0); HEMOGLOBIN 11.4 g/dl (14.0-18.0); LYMPH # 1.3 10*3/uL (1.3-4.4); LYMPH % 29.7 % (27.0-41.0); MEAN CELL VOLUME 86.4 fl (80.0-94.0); MEAN CORPUSCULAR HGB 28.3 pg (27.0-31.0); MEAN CORPUSCULAR HGB CONC 32.8 g/dl (33.0-37.0); MEAN PLATELET VOLUME 9.5 fl (9.6-12.3); MONO # 0.6 10*3/uL (0.1-1.0); MONO % 12.4 % (3.0-9.0); NEUT # 2.5 10*3/uL (2.3-7.9); NEUT % 55.2 % (47.0-73.0); PLATELET COUNT AUTOMATED 408 10*3/uL (130-400); RED BLOOD COUNT 4.03 10*6/uL (4.50-5.90); RED CELL DISTRI WIDTH 13.4 % (0-14.5); WHITE BLOOD COUNT 4.5 10*3/uL (4.8-10.8)
[2018-04-20 20:24] LABS: ACT PARTIAL THROMBO TIME 22.9 SECONDS (20.8-31.5)
[2018-04-20 20:28] LABS: ALBUMIN 3.3 gm/dl (3.1-4.5); ALKALINE PHOSPHATASE 76 U/L (45-117); BUN 8 mg/dl (7-24); CHLORIDE 97 mmol/L (98-107); CREATININE 0.76 mg/dL (0.70-1.30); POTASSIUM 3.9 mmol/L (3.5-5.1); SGOT/AST 30 IU/L (3-35); SGPT/ALT 31 U/L (12-78); SODIUM 134 mmol/L (136-145); TOTAL PROTEIN 7.3 gm/dL (6.4-8.2)
[2018-04-20 20:30] LABS: TROPONIN I < 0.015 ng/ml (<0.045)
[2018-04-20 21:02] VITALS: BP 104/71
[2018-04-20 23:04] VITALS: BP 134/62
[2018-04-20 23:31] VITALS: BP 121/85
[2018-04-21] VITALS (7 sets, daily range): BP systolic 103–130; BP diastolic 68–89
[2018-05-01] MEDS ORDERED: PROVENTIL HFA6.7 GM INH (14:26)
[2018-05-01] MEDS ORDERED: DOXEPIN HCL10 MG PO (14:27)
[2018-05-01] MEDS ORDERED: DULE1ARO INH (14:27)
[2018-05-01] MEDS ORDERED: INCRUSE ELLI62.5 MCG INH (14:28)
[2018-05-08] MEDS ORDERED: MUCINEX ER600 MG PO (11:34)
[2018-05-08] MEDS ORDERED: NORCO 5-325 TA1 EACH PO (11:34)
[2018-05-08] MEDS ORDERED: VISTARIL25 M2 PO (11:34)
[2018-05-08] MEDS ORDERED: Synthroid,Levo50 MCG PO (11:34)
[2018-05-08] MEDS ORDERED: AVPAK AZITHROM250 MG PO (11:34)
[2018-05-08] MEDS ORDERED: PREDNISONE10 MG PO (11:34)
[2018-05-08] MEDS ORDERED: PRINIVIL10 MG PO (11:34)
[2018-05-08] MEDS ORDERED: DOXEPIN HCL10 MG PO (11:34)
[2018-05-08] MEDS ORDERED: INCRUSE ELLI62.5 MCG INH (11:34)
[2018-05-08] MEDS ORDERED: PROVENTIL HFA6.7 GM INH (11:34)
[2018-05-08] MEDS ORDERED: DULE1ARO INH (11:34)
== END 2018-04-21 08:06 | disposition short-term general hospital (02) ==
LOC: ED 19:42 → EDHOLD 21:44 → ED 21:44 → 4E 22:22 → EDHOLD 22:22 → ED 04-21 08:06
PROVIDERS: Emergency Medicine
DX: J44.1 Chronic obstructive pulmonary disease with (acute) exacerbation (principal); R07.9 Chest pain, unspecified; I10 Essential (primary) hypertension; F17.210 Nicotine dependence, cigarettes, uncomplicated; Z79.899 Other long term (current) drug therapy

== ENCOUNTER 2018-05-10 16:04 | Inpatient (IN) | payer OTHER ==
[~2018-05-10] VITALS: Ht 170.1 cm; Wt 59.0 kg
--- NOTE | ~2018-05-10 | EKG ---
[place], [place] ELECTROCARDIOGRAM REPORT NAME: NICOLE AGUILA UNIT #: [id number] ROOM: 511 DOCTOR: POLO DRAFT REPORT BIRTHDATE: [birth year] [facility] Test Date: 2018-05-11 Test Time: 00:34:13 Pat Name: NICOLE AGUILA Department: Room: 511 2 Gender: M Radiography Technician: Germania Ng : 1955 Requested By: ALEN SPAULDING Order Number: [id number] Reading MD: Vince Lindo MD Measurements Intervals [place] Rate: 84 P: 86 [place]: 155 QRS: -70 QRSD: 118 T: 71 QT: 363 QTc: 430 Interpretive Statements Sinus rhythm Probable left atrial enlargement Incomplete right bundle branch block ST elevation suggests acute pericarditis Compared to ECG 05/01/2018 12:31:30 Incomplete right bundle-branch block now present Right bundle-branch block no longer present Myocardial infarct finding no longer present ST (T wave) deviation still present Electronically Signed On 05-15-2018 11:07:24 PST by Vince Lindo MD CM:EKGRPT:ELECTROCARDIOGRAM REPORT 0034 1107 ALEN SAGASTUME DRAFT REPORT ALEN SPAULDING DO
--- NOTE | ~2018-05-10 | EKG ---
[place], [place] ELECTROCARDIOGRAM REPORT NAME: NICOLE AGUILA UNIT #: [id number] ROOM: 511 DOCTOR: POLO DRAFT REPORT BIRTHDATE: [birth year] [facility] Test Date: 2018-05-10 Test Time: 16:05:58 Pat Name: NICOLE AGUILA Department: Room: 511 Gender: M Watch Crystal Molder: : 1955 Requested By: JIE THOMPSON PA-C Order Number: [id number] Reading MD: Vince Lindo MD Measurements Intervals [place] Rate: 114 P: 77 [place]: 163 QRS: -88 QRSD: 122 T: 62 QT: 322 QTc: 444 Interpretive Statements Sinus tachycardia Right atrial enlargement Right bundle branch block ST elevation, consider inferior injury Baseline wander in lead(s) V1,V2 Compared to ECG 05/01/2018 12:31:30 Atrial abnormality now present Sinus rhythm no longer present ST (T wave) deviation still present Myocardial infarct finding still present Electronically Signed On 05-15-2018 11:07:13 PST by Vince Lindo MD CM:EKGRPT:ELECTROCARDIOGRAM REPORT 1605 1107 JIE THOMPSON PA-C EPIPHANY DRAFT REPORT JIE THOMPSON PA-C
--- NOTE | ~2018-05-10 | CON ---
[place], [place] REPORT OF CONSULTATION NAME: NICOLE AGUILA [facility] #: [id number] UNIT #: [id number] ROOM: 511 DOCTOR: BRAYDON HAMMOND MD BIRTHDATE: [birth year] DOS: 05/11/2018 REASON FOR CONSULTATION: Chest pain. HISTORY OF PRESENT ILLNESS: The patient is a 62-year-old gentleman with history of hypertension, COPD, right bundle branch block, home oxygen, presented to the Emergency Room with chest pain as well as some shortness of breath. This pain is at rest. He describes it as a sharp, constant pain in the midsternal area. Pain did get worse with some cough or deep breath. Apparently, he is eating dinner at home and involved in some family argument and then became extremely anxious and he again started having this midsternal chest pain. The patient presented to the Emergency Room, was admitted to the hospital and Cardiology consult and further recommendation. Currently, he denied any chest pain while sitting. No shortness of breath, but he complained of some numbness in all his extremities as well as some lightheadedness while sitting in his chair. Denies any PND, orthopnea. No fever or chills. No nausea, vomiting or diarrhea. No bladder or bowel symptoms. No headache. No tingling, numbness or weakness. No cough or hemoptysis. Apparently, he was diagnosed recently with pneumonia/pneumonitis and discharged home couple of days ago on oral antibiotics. REVIEW OF SYSTEMS: Review of the 10 systems negative except as mentioned above. PAST MEDICAL HISTORY: 1. COPD. 2. Home oxygen. 3. Hypertension. 4. Hiatal hernia. 5. Right bundle branch block. 6. Vitamin D deficiency. 7. Chronic gastritis. PAST SURGICAL HISTORY: History of hiatal hernia, history of eye surgery and history of tonsillectomy. SOCIAL HISTORY: The patient is a former smoker, does not use illicit drugs, does consume alcohol. FAMILY HISTORY: Mother from unknown cause. Father had coronary artery disease at the age of 51. Brother has history of coronary artery disease and another brother has history of coronary artery disease. ALLERGIES: No known drug allergies. HOME MEDICATIONS: Reviewed. REVIEW OF THE DIAGNOSTIC TESTS: EKG showed normal sinus with a right bundle branch block with some nondiagnostic ST elevation and baseline artifacts. The EKG from today showed sinus rhythm with ST elevation, does not consistent with acute KS, possible pericarditis. [place], [place] REPORT OF CONSULTATION NAME: NICOLE AGUILA [place] UNIT #: [id number] ROOM: 511 DOCTOR: BRAYDON HAMMOND MD BIRTHDATE: [birth year] His labs and imaging studies reviewed. PHYSICAL EXAMINATION: VITAL SIGNS: Blood pressure 129/77, pulse 90, respiration 20, weight 58.9 kilos and BMI 20.4. GENERAL: Alert, comfortable, in no acute distress. NECK: Supple, no distended neck veins, no carotid bruit. CHEST: Symmetrical. The patient had tenderness on palpation over the upper chest area. LUNGS: A few scattered rhonchi, but good air entry bilaterally. HEART: Regular rhythm, no S3. Grade 1/6 systolic murmur. ABDOMEN: Benign, nontender. EXTREMITIES: Showed no edema. Distal pulses palpable. SKIN: Warm and dry. No cyanosis, no clubbing. RECTAL: Deferred. GENITOURINARY: Deferred. NEUROLOGIC: The patient is alert, oriented. No focal neuro deficit. PSYCHIATRIC: The patient is alert with good mood and affect. IMPRESSIONS: 1. Chest pain, atypical. 2. Recent pneumonitis. 3. Borderline sinus tachycardia. 4. Hypertension. 5. Mild mitral regurgitation. 6. Home oxygen dependent. 7. Chronic obstructive pulmonary disease. 8. Right bundle branch block. RECOMMENDATIONS: The chest pain does not appear to be acute ischemia. He appears in an nonischemic stress test in November 2017 and his echo from September 2017 reviewed, which showed normal LV function with mild mitral regurgitation. His symptoms and EKG could suggestive of pericarditis. If symptoms are persistent, recommend nonsteroidal anti-inflammatory drugs. No further cardiac testing at this time and blood pressure and heart rates are stable. There is no family at bedside at the time of my examination. [place], [place] REPORT OF CONSULTATION NAME: NICOLE AGUILA UNIT #: [id number] ROOM: 511 DOCTOR: BRAYDON HAMMOND MD BIRTHDATE: [birth year] BRAYDON HAMMOND MD CM:CONSTR:REPORT OF CONSULTATION 25 05/12/18 0001 interface
[~2018-05-10 16:04] MED LIST changes: +DOXEPIN HCL10 MG PO; +MUCINEX ER600 MG PO; +NORCO 5-325 TA1 EACH PO; +PROVENTIL HFA6.7 GM INH; +VISTARIL25 M2 PO
[2018-05-10 16:06] VITALS: BP 107/64
[2018-05-10 16:47] LABS: BASO % 0.1 % (0.0-1.0); HEMATOCRIT 35.6 % (42.0-52.0); HEMOGLOBIN 11.7 g/dl (14.0-18.0); LYMPH # 0.5 10*3/uL (1.3-4.4); MEAN CELL VOLUME 85.6 fl (80.0-94.0); MEAN CORPUSCULAR HGB 28.1 pg (27.0-31.0); MEAN CORPUSCULAR HGB CONC 32.9 g/dl (33.0-37.0); MEAN PLATELET VOLUME 9.7 fl (9.6-12.3); MONO # 0.6 10*3/uL (0.1-1.0); MONO % 5.8 % (3.0-9.0); NEUT # 8.8 10*3/uL (2.3-7.9); NEUT % 87.8 % (47.0-73.0); PLATELET COUNT AUTOMATED 362 10*3/uL (130-400); RED BLOOD COUNT 4.16 10*6/uL (4.50-5.90); RED CELL DISTRI WIDTH 15.2 % (0-14.5)
[2018-05-10 16:56] LABS: INTERNATIONAL NORM RATIO 0.9 (2.0-3.5)
[2018-05-10 16:57] VITALS: BP 95/56
[2018-05-10 17:05] LABS: ALBUMIN 3.4 gm/dl (3.1-4.5); ALKALINE PHOSPHATASE 61 U/L (45-117); BUN 15 mg/dl (7-24); CHLORIDE 97 mmol/L (98-107); CREATININE 1.05 mg/dL (0.70-1.30); POTASSIUM 4.5 mmol/L (3.5-5.1); SGOT/AST 35 IU/L (3-35); SGPT/ALT 198 U/L (12-78); SODIUM 135 mmol/L (136-145); TOTAL PROTEIN 7.5 gm/dL (6.4-8.2)
[2018-05-10 17:06] LABS: TROPONIN I < 0.015 ng/ml (<0.045)
[2018-05-10 17:14] VITALS: BP 104/64
[2018-05-10 18:04] VITALS: BP 102/62
[2018-05-10 18:10] VITALS: BP 115/65
[2018-05-10 20:00] VITALS: BP 97/67
[2018-05-11] VITALS: BP 122/82
[2018-05-11 06:48] LABS: BASO % 0.1 % (0.0-1.0); HEMATOCRIT 31.1 % (42.0-52.0); HEMOGLOBIN 10.1 g/dl (14.0-18.0); LYMPH # 0.6 10*3/uL (1.3-4.4); LYMPH % 7.6 % (27.0-41.0); MEAN CELL VOLUME 85.2 fl (80.0-94.0); MEAN CORPUSCULAR HGB 27.7 pg (27.0-31.0); MEAN CORPUSCULAR HGB CONC 32.5 g/dl (33.0-37.0); MEAN PLATELET VOLUME 9.7 fl (9.6-12.3); MONO # 0.6 10*3/uL (0.1-1.0); MONO % 8.4 % (3.0-9.0); NEUT # 6.2 10*3/uL (2.3-7.9); NEUT % 82.4 % (47.0-73.0); PLATELET COUNT AUTOMATED 305 10*3/uL (130-400); RED BLOOD COUNT 3.65 10*6/uL (4.50-5.90); RED CELL DISTRI WIDTH 15.4 % (0-14.5); WHITE BLOOD COUNT 7.5 10*3/uL (4.8-10.8)
[2018-05-11 07:08] LABS: ALBUMIN 2.7 gm/dl (3.1-4.5); ALKALINE PHOSPHATASE 50 U/L (45-117); BUN 19 mg/dl (7-24); CHLORIDE 98 mmol/L (98-107); CREATININE 0.77 mg/dL (0.70-1.30); FREE T4 1.03 ng/dl (0.76-1.46); PHOSPHOROUS 3.8 mg/dL (2.5-4.9); POTASSIUM 5.1 mmol/L (3.5-5.1); SGOT/AST 34 IU/L (3-35); SGPT/ALT 153 U/L (12-78); SODIUM 133 mmol/L (136-145); TOTAL PROTEIN 6.3 gm/dL (6.4-8.2)
[2018-05-11 09:44] VITALS: BP 104/74
[2018-05-11] MEDS ORDERED: PROVENTIL HFA6.7 GM PO (10:16)
[2018-05-11] MEDS ORDERED: ALBUTEROL2.5 MG/0.5 INH (10:21)
[2018-05-11 12:00] VITALS: BP 129/77
[2018-05-11 16:00] VITALS: BP 124/76
[2018-05-11 20:00] VITALS: BP 147/78
[2018-05-12] VITALS: BP 129/80
[2018-05-12 06:19] LABS: BASO % 0.1 % (0.0-1.0); EOS % 0.1 % (1.0-4.0); HEMATOCRIT 30.9 % (42.0-52.0); HEMOGLOBIN 9.9 g/dl (14.0-18.0); LYMPH # 1.3 10*3/uL (1.3-4.4); LYMPH % 15.8 % (27.0-41.0); MEAN CELL VOLUME 87.3 fl (80.0-94.0); MEAN PLATELET VOLUME 9.8 fl (9.6-12.3); MONO # 1.1 10*3/uL (0.1-1.0); MONO % 13.5 % (3.0-9.0); NEUT # 5.7 10*3/uL (2.3-7.9); NEUT % 69.2 % (47.0-73.0); PLATELET COUNT AUTOMATED 315 10*3/uL (130-400); RED BLOOD COUNT 3.54 10*6/uL (4.50-5.90); RED CELL DISTRI WIDTH 15.4 % (0-14.5); WHITE BLOOD COUNT 8.2 10*3/uL (4.8-10.8)
[2018-05-12 06:51] LABS: ALBUMIN 2.9 gm/dl (3.1-4.5); BUN 17 mg/dl (7-24); CHLORIDE 99 mmol/L (98-107); POTASSIUM 5.3 mmol/L (3.5-5.1); SODIUM 135 mmol/L (136-145)
[2018-05-12 06:54] LABS: ALKALINE PHOSPHATASE 53 U/L (45-117); CREATININE 0.66 mg/dL (0.70-1.30); SGOT/AST 35 IU/L (3-35); SGPT/ALT 140 U/L (12-78); TOTAL PROTEIN 6.2 gm/dL (6.4-8.2)
[2018-05-12 08:00] VITALS: BP 131/84
[2018-05-12 08:20] VITALS: BP 104/62
[2018-05-12] MEDS ORDERED: VISTARIL25 M2 PO (11:27)
[2018-05-12] MEDS ORDERED: NORCO 5-325 TA1 EACH PO (11:27)
[2018-05-12 12:00] VITALS: BP 138/81
== END 2018-05-12 14:28 | disposition home health service (06) | DRG 313 ==
LOC: ED 16:04 → 5E 17:49 → EDHOLD 17:49 → 5E 18:03
PROVIDERS: Internal Medicine; Physician Assistant; Student in an Organized Health Care Education/Training Program
DX: R07.89 Other chest pain (principal); E44.1 Mild protein-calorie malnutrition; E87.1 Hypo-osmolality and hyponatremia; F41.9 Anxiety disorder, unspecified; E87.8 Other disorders of electrolyte and fluid balance, not elsewhere classified; E83.41 Hypermagnesemia; E03.9 Hypothyroidism, unspecified; I45.10 Unspecified right bundle-branch block; E86.0 Dehydration; E55.9 Vitamin D deficiency, unspecified; I34.0 Nonrheumatic mitral (valve) insufficiency; R00.0 Tachycardia, unspecified; J84.10 Pulmonary fibrosis, unspecified; K44.9 Diaphragmatic hernia without obstruction or gangrene; J44.9 Chronic obstructive pulmonary disease, unspecified; F17.210 Nicotine dependence, cigarettes, uncomplicated; I10 Essential (primary) hypertension; R73.9 Hyperglycemia, unspecified; D64.9 Anemia, unspecified; K29.50 Unspecified chronic gastritis without bleeding; Z79.899 Other long term (current) drug therapy; Z99.81 Dependence on supplemental oxygen; Z80.41 Family history of malignant neoplasm of ovary; Z82.49 Family history of ischemic heart disease and other diseases of the circulatory system; Z68.20 Body mass index [BMI] 20.0-20.9, adult

== ENCOUNTER → 2018-05-16 | Outpatient (CLI) | payer OTHER ==
[~2018-05-16] MED LIST changes: +ALBUTEROL2.5 MG/0.5 INH; +ATARAX,VISTARIL50 MG PO; +HYDROXYZINE PAM25 M1 PO; +IBU600 M1 PO; +Ipratropium Brom3 ML INH; +PROVENTIL HFA6.7 GM PO
== END | disposition home or self-care (01) ==
LOC: RESCLI 04:31
DX: Z09 Encounter for follow-up examination after completed treatment for conditions other than malignant neoplasm (principal); I10 Essential (primary) hypertension; J43.9 Emphysema, unspecified; G47.00 Insomnia, unspecified; F41.9 Anxiety disorder, unspecified; E03.9 Hypothyroidism, unspecified; R07.82 Intercostal pain; Z99.81 Dependence on supplemental oxygen; Z79.899 Other long term (current) drug therapy; Z87.891 Personal history of nicotine dependence; Z88.8 Allergy status to other drugs, medicaments and biological substances

== ENCOUNTER 2018-05-22 10:48 | Inpatient (IN) | payer OTHER ==
[~2018-05-22] VITALS: Ht 172.7 cm; Wt 57.2 kg
--- NOTE | ~2018-05-22 | CON ---
[place], [place] REPORT OF CONSULTATION NAME: NICOLE AGUILA [facility] #: [id number] UNIT #: [id number] ROOM: 520 DOCTOR: KETTY SHELTON BIRTHDATE: [birth year] DOS: 05/23/2018 PULMONARY CONSULTATION, EVALUATION AND MANAGEMENT CONSULTATION REQUESTED BY: Hospitalist service. REASON FOR CONSULTATION: Assessment of symptoms of shortness of breath. HISTORY OF PRESENT ILLNESS: This is a 62-year-old male patient known with a history of end-stage COPD, chronic hypoxic respiratory failure, use of oxygen supplementation, 3 liters cannula. The patient has been admitted to the hospital on 05/22/2018. He came in to the hospital, Emergency Room as he has been noticed with progressive increased symptoms of shortness of breath over the last 3 days. The symptoms have grown significantly worse with increased wheezing. The patient notes a tightness in his chest as well as left-sided chest pain that gets worse with breathing and palpitation. The patient states he has had to increase his oxygen from 3 liters to 5 liters. The patient notes he has had an increase in cough as well, but denies sputum expectoration as well as hemoptysis. This morning, the patient was seen and notes that he is slightly better at this time with a little improvement in his breathing. REVIEW OF SYSTEMS: CONSTITUTIONAL: Fatigue and tiredness without symptoms of fever or chills. HEENT: Denies eye pain or itching. Denies throat pain. CARDIOVASCULAR: Reports chest pain. Denies palpitations or lower extremity edema. RESPIRATORY: Reports shortness of breath, wheezing, cough. Denies hemoptysis or sputum production. GASTROINTESTINAL: Denies abdominal pain, vomiting, diarrhea, constipation. GENITOURINARY: Denies dysuria, hematuria, increased frequency or urgency. CENTRAL NERVOUS SYSTEM: Grossly intact. SKIN: Denies abnormal lesions or rashes. Remaining systems reviewed, the patient notes them negative without any other complaints at this time. PAST MEDICAL HISTORY: 1. History of end-stage chronic obstructive pulmonary disease with chronic respiratory failure. 2. History of chronic hearing loss. 3. History of reported syncope. 4. History of generalized anxiety disorder. 5. Essential hypertension. 6. Blindness of the right eye. 7. History of uncomplicated severe persistent bronchial asthma. PAST SURGICAL HISTORY: 1. Hernia repair. 2. History of eye surgery. 3. Tonsillectomy. 4. Bronchoscopy. [place], [place] REPORT OF CONSULTATION [id number] UN[facility] #: [id number] ROOM: 520 DOCTOR: KETTY SHELTON BIRTHDATE: [birth year] 5. History of EGD. SOCIAL HISTORY: The patient lives at home, , 2 children. Denies history of alcohol or illicit drug use. Tobacco use noted from age [age] years old, roughly a pack of cigarettes a day with gradual reduction and discontinued cigarettes a few months ago, 2017. FAMILY HISTORY: The patient's father at age 51 with complications of myocardial infarction. Mother at 68 due to ovarian cancer. MEDICATIONS: Dulera, ipratropium bromide, Incruse Ellipta, Proventil, doxepin, hydroxyzine, ibuprofen, Synthroid, Zestril. DRUG ALLERGIES: Noted with no drug allergies. PHYSICAL EXAMINATION: GENERAL: A 62-year-old male, who appears quite short of breath, using oxygen supplementation with the nasal cannula. Height 5 feet 8 inches, BMI 19.2. VITAL SIGNS: Normal temperature, respiratory rate 20, heart rate 103, blood pressure 147/89, pulse oxygen saturation on 2 liters nasal cannula 99% saturation. HEENT: Head was atraumatic. Eyes, nonicterus. NECK: Supple. LUNGS: Noted decreased breathing sounds throughout and wheezing present. ABDOMEN: Soft, nontender. EXTREMITIES: No edema visible. SKIN: No rashes or lesions. MUSCULOSKELETAL: No acute deformities. LABORATORY DATA: CBC on admission, white blood cell count 7.9, hemoglobin 11.8, platelet count 412. CMP on admission, B12 of 418, BUN 12, creatinine 0.82, carbon dioxide 26, glucose 101. CBC on 05/23/2018, white blood cell count 4.6, hemoglobin 8.6, platelet count 302. CMP on 05/23/2018, BUN 12, creatinine 0.75, carbon dioxide 26, glucose 219. IMAGING STUDIES: Chest x-ray 05/22/2018, impression, COPD, significant chronic upper lobe pulmonary fibrosis scar. No apparent post-acute infiltrate. Chest is stable in the interval of 2 weeks. Chest CTA 05/23/2018, impression, no pulmonary emboli within major pulmonary arteries, severe emphysema and fibrosis. IMPRESSION: 1. Acute exacerbation of chronic obstructive pulmonary disease, acute and chronic hypoxic respiratory failure with chronic hypercapnic respiratory failure. 2. Carrier for alpha-1 antitrypsin deficiency as well as with the MZ variant. 3. Leukopenia. 4. History of tobacco abuse. 5. Generalized anxiety disorder. PLAN OF TREATMENT: The patient would benefit from staying several days in a [place], [place] REPORT OF CONSULTATION NAME: NICOLE AGUILA UNIT #: [id number] ROOM: [facility] [place] DOCTOR: KETTY SHELTON BIRTHDATE: [birth year] [facility] for his acute exacerbation of chronic obstructive pulmonary disease, history of chronic respiratory failure with severe emphysema. Will continue current antibiotics, bronchodilator and steroid treatment at this time. Sputum for Gram stain and culture pending. Additional treatment changes to the patient will be done based on the progression of the illness. Supportive care. KETTY SHELTON, BANG GRANADOS MD CM:CONSTR:REPORT OF CONSULTATION 1434 05/24/18 1328 interface
--- NOTE | ~2018-05-22 | PR ---
[place], [place] PROGRESS NOTE NAME: [id number] UNIT #: [id number] ROOM: 520 DOCTOR: DARWIN PUCKETT MD,BANG BIRTHDATE: [birth year] DOS: 05/24/2018 SUBJECTIVE: He has been noted comfortable at this time, resting on the bed. The patient does have symptoms of coughing and chest pain as well as wheezing at times. Denies symptoms of nausea or vomiting. OBJECTIVE: VITAL SIGNS: For the patient which has been recorded showed normal temperature, respiratory rate 20, heart rate 95, blood pressure 138/77. Pulse oxygen saturation on 2 liters nasal cannula 97% saturation. HEENT: Head was atraumatic. Eyes nonicterus. CARDIOVASCULAR: S1, S2 audible. LUNGS: Without any crackles. Occasional wheezing. ABDOMEN: Soft and nontender. Bowel sounds present. EXTREMITIES: Without acute edema. IMPRESSION: Chronic chest pain. The patient with acute exacerbation of chronic obstructive pulmonary disease and other symptoms. PLAN OF MANAGEMENT: No change in pulmonary standpoint. Continue current outline therapy without changes. Reduction of the Solu-Medrol gradually will be started reducing Solu-Medrol 40 mg q.8h. to b.i.d. dosing. Social service for the placement was already ordered. BANG GRANADOS MD CM:PNTRANS 1115 1446 BANG PUCKETT MD 05/24/18 1445 interface
--- NOTE | ~2018-05-22 | PR ---
[place], [place] PROGRESS NOTE NAME: NICOLE AGUILA UNIT #: [id number] ROOM: 520 DOCTOR: KETTY SHELTON BIRTHDATE: [birth year] DOS: 05/24/2018 PULMONARY PROGRESS NOTE SUBJECTIVE: The patient was noted sitting comfortably at a chair without any signs of acute distress. The patient states he is feeling slightly better today with decreased shortness of breath at this time. The patient still complains of his cough and chest pain. OBJECTIVE: VITAL SIGNS: Temperature normal, respiratory rate 12, heart rate 71, blood pressure 122/36, pulse oxygen saturation on 2 liters nasal cannula 96% saturation. HEENT: Head is atraumatic. Eyes, nonicterus. NECK: Supple. CARDIOVASCULAR: S1, S2 audible. LUNGS: Decreased breath sounds bilaterally with occasional wheezing. ABDOMEN: Soft and nontender. EXTREMITIES: Without acute edema. CENTRAL NERVOUS SYSTEM: Grossly intact. LABORATORY DATA: CBC 05/24/2018, white blood cell count 8.2, hemoglobin 9.1, platelet count 322. ASSESSMENT: 1. Chronic chest pain ____ acute exacerbation of chronic obstructive pulmonary disease with acute bronchitis. 2. Hyperglycemia related to corticosteroids. 3. Past history of nicotine abuse. PLAN OF TREATMENT: Continue current patient's care with antibiotics, steroids and bronchodilator. The patient planned to be placed in a long-term facility for extended period of time. Usual care, other supportive plan of therapy and treatment and care. Further changes in management will be made depending on the change in clinical status of the patient. KETTY SHELTON DO [place], [place] PROGRESS NOTE NAME: NICOLE AGUILA [place] UNIT #: [id number] ROOM: 520 DOCTOR: KETTY SHELTON BIRTHDATE: [birth year] BANG GRANADOS MD CM:PNDAVID [id number] KETTY SHELTON 05/25/18 0943 interface
--- NOTE | ~2018-05-22 | CON ---
[place], [place] REPORT OF CONSULTATION NAME: NICOLE AGUILA [facility] #: [id number] UNIT #: [id number] ROOM: 520 DOCTOR: DARWIN PUCKETT MDBANG BIRTHDATE: [birth year] DOS: 05/23/2018 PULMONARY CONSULTATION, EVALUATION AND MANAGEMENT REASON FOR CONSULTATION: Assess the patient with recurrence of respiratory symptoms with chronic chest pain as well. HISTORY OF PRESENT ILLNESS: A 62-year-old white male patient who has been admitted to the hospital numerous times in the past. The patient recently admitted to the hospital, treated for acute exacerbation of COPD and acute bronchitis, treated with antibiotics, bronchodilators. The patient was recently admitted again for in the hospital 05/10/2018 to until 05/12/2018 as well. He was seen on admission on 05/02/2018 admission. The patient was treated at that time for acute exacerbation of COPD, acute bronchitis had therapeutic bronchoscopy done as well with negative cultures of any abnormal bacterial growth and then discharged home. He presented back to the hospital again this time reported having symptoms of worsening of the chest pain, which are reported with chronic investigated previously without any known cause. He has been also reported symptoms of coughing as well as chest congestion. His coughing has been described to be nonproductive. He denies symptoms of fever or chills. The patient also noted with increase panic and anxiety with increased shortness of breath. Wheezing was reported at times. Denies symptoms of fever or chills. The patient has been taking his pain medication to relieve the pain. States the pain has not been resolved. REVIEW OF SYSTEMS: CONSTITUTIONAL SYMPTOMS: Fatigue and tiredness noted without any symptoms of fever or chills. EYES: Denies any burning, redness, or tenderness. EARS, NOSE, AND THROAT SYMPTOMS: Denies sore throat, hoarseness, otalgia, postnasal drainage or epistaxis. CARDIOVASCULAR: Denies angina pain, edema, or pain of the lower extremities. GASTROINTESTINAL: Denies dysphagia, nausea, vomiting, diarrhea, abdominal pain, hematemesis, melena, or hematochezia. SKIN: Denies abnormal lesions or rashes. GASTROINTESTINAL SYMPTOMS: Denies dysphagia, nausea, vomiting, diarrhea, abdominal pain, hematemesis, melena, or hematochezia. GENITOURINARY SYMPTOMS: No dysuria, suprapubic pain, or hematuria. MUSCULOSKELETAL SYMPTOMS: Current chronic chest pain reported sometime in the left side in the past for many months. Denies any other joint pain as well. SKIN: Denies abnormal lesions or rashes. CENTRAL NERVOUS SYSTEM: No dizziness, headache, diplopia, or syncopal episodes. Remaining systems were reviewed, they were noted all negative. PAST MEDICAL HISTORY, PAST SURGICAL HISTORY, SOCIAL HISTORY, FAMILY HISTORY: All reviewed since my consultation of 04/22/2018 with the patient and they were noted, unchanged. CURRENT MEDICATIONS: Administered for this hospitalization were noted as use of [place], [place] REPORT OF CONSULTATION NAME: NICOLE AGUILA UNIT #: [id number] ROOM: [facility] DOCTOR: BANG LESTER MD BIRTHDATE: [birth year] levothyroxine, lisinopril, Lovenox for DVT prophylaxis, hydroxyzine, Solu-Medrol 40 mg q. 8 hours, DuoNeb q. 4 hours, doxepin, albuterol sulfate, lisinopril and others. DRUG ALLERGY HISTORY: The patient was noted as no known drug allergies. PHYSICAL EXAMINATION: GENERAL: This is a 62-year-old white male patient who has been noted currently awake and alert at this time without any acute distress. VITAL SIGNS: The patient's height recorded by the nursing staff with height of 5 feet 8 inches, weight of 126 pounds, BMI 19. The patient has a normal temperature, respiratory rate 20, heart rate of 103-85, blood pressure 147/89-161/95. Pulse oxygen saturation on 2 liters nasal cannula 99% saturation. HEENT: Head was atraumatic. Eyes: No icterus. ENT: The patient noted a loss of vision in left eye moderate hearing loss. NECK: Supple. CARDIOVASCULAR: S1, S2 audible. LUNGS: Noted with moderate decreased breath sounds. Occasional wheezing, no crackles. ABDOMEN: Soft, nontender. Bowel sounds present. EXTREMITIES: Without acute edema. MUSCULOSKELETAL: Without acute deformities. CENTRAL NERVOUS SYSTEM: Cranial nerves 2-12 intact. LABORATORY DATA: CBC on admission yesterday was normal, hemoglobin 11.8, platelet count noted normal, CBC; noted normal BUN and creatinine, sodium 133, chloride of 96. CRP, mildly elevated at 7.23. Troponin noted normal. Lactic acid yesterday normal at 2.0. Chest x-ray, hyperinflation of the lung changes of diffuse emphysema, COPD. CBC this morning; WBC count 4.6, hemoglobin 8.6, platelet count was normal. BMP this morning, glucose 219, BUN and creatinine was normal. CTA of the chest was completed yesterday as well. On admission, the patient was noted without any evidence of pulmonary embolism or any acute disease include any bony abnormality, which explains the chest pain. IMPRESSION: 1. Chronic chest pain was noted, recurrent acute exacerbation of chronic obstructive pulmonary disease with acute bronchitis. 2. Hyperglycemia related to corticosteroids. 3. Past history of nicotine abuse. Denied tobacco use by the patient actively at this time. 4. Appeared to be a very poor social support as well. PLAN OF TREATMENT: The patient was recommended to continue current corticosteroid. Dose will be decreased gradually. Placement in skilled nurse facility for extended period of time from the medical management standpoint did decrease the hospitalization. Other medical management therapy, plan of management to be continued as well. Usual care, other supportive plan of therapy and treatment and care. [place], [place] REPORT OF CONSULTATION NAME: NICOLE AGUILA [place] UNIT #: [id number] ROOM: 520 DOCTOR: BANG LESTER MD BIRTHDATE: [birth year] Thanks for allowing me to participate in the care of this patient. BANG GRANADOS MD CM:CONSTR:REPORT OF CONSULTATION 1307 05/24/18 0150 interface
--- NOTE | ~2018-05-22 | EKG ---
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1955 Requested By: SHUBHAM SPAULDING Order Number: [id number] Reading MD: Jv Erickson MD Measurements Intervals [place] Rate: 113 P: 86 PA: 161 QRS: -93 QRSD: 114 T: 65 QT: 325 QTc: 446 Interpretive Statements Sinus tachycardia Incomplete RBBB Right atrial enlargement LAD, consider left anterior fascicular block Abnormal R-wave progression, late transition ST elevation suggests acute pericarditis Baseline wander in lead(s) V1 Compared to ECG 05/11/2018 00:34:13 Sinus rhythm no longer present ST (T wave) deviation still present Electronically Signed On 05-22-2018 21:15:49 PST by Jv Erickson MD CM:EKGRPT:ELECTROCARDIOGRAM REPORT 1107 14 SHUBHAM SAGASTUME DRAFT REPORT SHUBHAM SPAULDING DO
--- NOTE | ~2018-05-22 | PR ---
[place], [place] PROGRESS NOTE NAME: NICOLE AGUILA [facility] #: [id number] UNIT #: [id number] ROOM: 520 DOCTOR: KETTY SHELTON BIRTHDATE: [birth year] DOS: 05/25/2018 PULMONARY PROGRESS NOTE SUBJECTIVE: The patient was noted sitting comfortably at his bed at this time without any signs of acute distress. The patient still complains of chest pain, coughing and wheezing. At this time, he states minimal change. OBJECTIVE: VITAL SIGNS: Temperature normal, respiratory rate 22, heart rate 98, blood pressure 150/88, pulse oxygen saturation on 2 liters nasal cannula 98% saturation. HEENT: Head was atraumatic. Eyes nonicterus. CARDIOVASCULAR: S1, S2 audible. LUNGS: Without any crackles, wheezing throughout. Decreased breath sounds bilaterally. ABDOMEN: Soft, nontender. EXTREMITIES: Without any acute edema. IMPRESSION: Chronic chest pain. The patient with acute exacerbation of chronic obstructive pulmonary disease. PLAN OF MANAGEMENT: No change in management from a pulmonary standpoint. Continue current bronchodilators, steroids and antibiotics. Usual care, other supportive plan of therapy and treatment care. Further changes in management will be made depending on change in clinical status of the patient. KETTY SHELTON, BANG GRANADOS MD CM:PNTRANS [id number] KETTY SHELTON 05/26/18 0915 interface
--- NOTE | ~2018-05-22 | PR ---
[place], [place] PROGRESS NOTE NAME: NICOLE AGUILA [facility] #: [id number] UNIT #: [id number] ROOM: 520 DOCTOR: DARWIN PUCKETT MD,BANG BIRTHDATE: [birth year] DOS: 05/25/2018 PULMONARY PROGRESS NOTE SUBJECTIVE: The patient was noted comfortable at this time, was noted with chronic pain in the chest ____ pain medication. Shortness breath and cough has been noted with gradual reduction, but the resolution noted incomplete. No symptoms of fever or chills. OBJECTIVE: VITAL SIGNS: Normal temperature, respiratory rate 20, heart rate 98, blood pressure 150/88, pulse oxygen saturation 2 liters nasal cannula 98% saturation. HEENT: Head was atraumatic. Eyes nonicterus. NECK: Supple. CARDIOVASCULAR: S1, S2 is audible. LUNGS: Without any wheeze or crackles. ABDOMEN: Soft, nontender, bowel sounds present. EXTREMITIES: No acute edema. IMPRESSION: The patient with recurrent hospitalization for acute exacerbation of chronic obstructive pulmonary disease. PLAN OF MANAGEMENT: Currently plan for discharge ____ facility for IV antibiotic, use of the corticosteroids and physical therapy. The patient has been accepted for transfer to [facility]. Outpatient followup would be established post-discharge. BANG GRANADOS MD CM:PNTRANS 1313 2 BANG PUCKETT MD 05/26/18211 interface
[~2018-05-22 10:48] MED LIST changes: -ATARAX,VISTARIL50 MG PO; -HYDROXYZINE PAM25 M1 PO; -IBU600 M1 PO; -Ipratropium Brom3 ML INH
[2018-05-22 11:15] LABS: BASO % 0.3 % (0.0-1.0); EOS # 0.1 10*3/uL (0.0-0.4); EOS % 1.3 % (1.0-4.0); HEMATOCRIT 36.1 % (42.0-52.0); HEMOGLOBIN 11.8 g/dl (14.0-18.0); LYMPH # 1.2 10*3/uL (1.3-4.4); MEAN CELL VOLUME 86.2 fl (80.0-94.0); MEAN CORPUSCULAR HGB 28.2 pg (27.0-31.0); MEAN CORPUSCULAR HGB CONC 32.7 g/dl (33.0-37.0); MEAN PLATELET VOLUME 9.1 fl (9.6-12.3); MONO % 12.6 % (3.0-9.0); NEUT # 5.5 10*3/uL (2.3-7.9); PLATELET COUNT AUTOMATED 412 10*3/uL (130-400); RED BLOOD COUNT 4.19 10*6/uL (4.50-5.90); RED CELL DISTRI WIDTH 15.7 % (0-14.5); WHITE BLOOD COUNT 7.9 10*3/uL (4.8-10.8)
[2018-05-22 11:29] LABS: ALBUMIN 3.5 gm/dl (3.1-4.5); ALKALINE PHOSPHATASE 79 U/L (45-117); BUN 12 mg/dl (7-24); CHLORIDE 96 mmol/L (98-107); CREATININE 0.82 mg/dL (0.70-1.30); LIPASE 118 U/L (73-393); POTASSIUM 4.2 mmol/L (3.5-5.1); SGOT/AST 16 IU/L (3-35); SGPT/ALT 35 U/L (12-78); SODIUM 133 mmol/L (136-145); TOTAL PROTEIN 8.5 gm/dL (6.4-8.2)
[2018-05-22 11:31] LABS: ACT PARTIAL THROMBO TIME 27.6 SECONDS (20.8-31.5); TROPONIN I < 0.015 ng/ml (<0.045)
[2018-05-22 11:38] VITALS: BP 77/54
[2018-05-22 12:03] VITALS: BP 80/60; BP 82/60
[2018-05-22 12:28] VITALS: BP 111/73
[2018-05-22] MEDS ORDERED: HYDROXYZINE PAM25 M1 PO (12:51)
[2018-05-22] MEDS ORDERED: IBU600 M1 PO (13:00)
[2018-05-22] MEDS ORDERED: ZESTRIL2.5 MG PO (13:02)
[2018-05-22] MEDS ORDERED: DOXEPIN HCL10 MG PO (13:04)
[2018-05-22] MEDS ORDERED: Synthroid,Levo50 MCG PO (13:04)
[2018-05-22] MEDS ORDERED: Ipratropium Brom3 ML INH (13:10)
[2018-05-22 13:45] VITALS: BP 107/77
[2018-05-22 15:30] VITALS: BP 110/70
[2018-05-22 20:00] VITALS: BP 131/82
[2018-05-23] VITALS: BP 161/95
[2018-05-23 06:41] LABS: BUN 12 mg/dl (7-24); CHLORIDE 102 mmol/L (98-107); CREATININE 0.75 mg/dL (0.70-1.30); PHOSPHOROUS 3.1 mg/dL (2.5-4.9); POTASSIUM 4.4 mmol/L (3.5-5.1); SODIUM 136 mmol/L (136-145)
[2018-05-23 06:50] LABS: MEAN CELL VOLUME 87.8 fl (80.0-94.0); MEAN CORPUSCULAR HGB 27.7 pg (27.0-31.0); MEAN CORPUSCULAR HGB CONC 31.5 g/dl (33.0-37.0); MEAN PLATELET VOLUME 9.8 fl (9.6-12.3); PLATELET COUNT AUTOMATED 302 10*3/uL (130-400); RED BLOOD COUNT 3.11 10*6/uL (4.50-5.90); RED CELL DISTRI WIDTH 15.7 % (0-14.5); WHITE BLOOD COUNT 4.6 10*3/uL (4.8-10.8)
[2018-05-23 06:54] LABS: HEMATOCRIT 27.3 % (42.0-52.0); HEMOGLOBIN 8.6 g/dl (14.0-18.0)
[2018-05-23 07:14] LABS: ATYPICAL LYMPHS 1 % (0-0); PLATELET SUFFICIENCY NORMAL (NORMAL); TOTAL CELLS COUNTED 100 #CELLS
[2018-05-23 07:54] VITALS: BP 148/80
[2018-05-23 12:00] VITALS: BP 147/89
[2018-05-23 16:00] VITALS: BP 118/60
[2018-05-23 20:00] VITALS: BP 136/78
[2018-05-24] VITALS: BP 128/86
[2018-05-24 07:09] LABS: HEMATOCRIT 29.2 % (42.0-52.0); HEMOGLOBIN 9.1 g/dl (14.0-18.0); MEAN CELL VOLUME 88.2 fl (80.0-94.0); MEAN CORPUSCULAR HGB 27.5 pg (27.0-31.0); MEAN CORPUSCULAR HGB CONC 31.2 g/dl (33.0-37.0); MEAN PLATELET VOLUME 9.7 fl (9.6-12.3); PLATELET COUNT AUTOMATED 322 10*3/uL (130-400); RED BLOOD COUNT 3.31 10*6/uL (4.50-5.90); WHITE BLOOD COUNT 8.2 10*3/uL (4.8-10.8)
[2018-05-24 07:33] LABS: BUN 12 mg/dl (7-24); CHLORIDE 100 mmol/L (98-107); POTASSIUM 4.3 mmol/L (3.5-5.1); SODIUM 136 mmol/L (136-145)
[2018-05-24 07:34] LABS: PLATELET SUFFICIENCY NORMAL (NORMAL); TOTAL CELLS COUNTED 100 #CELLS
[2018-05-24 08:00] VITALS: BP 138/77
[2018-05-24 12:00] VITALS: BP 138/83
[2018-05-24 16:00] VITALS: BP 150/91
[2018-05-24 20:00] VITALS: BP 149/89
[2018-05-25 06:33] LABS: HEMATOCRIT 28.2 % (42.0-52.0); HEMOGLOBIN 8.6 g/dl (14.0-18.0); LYMPH # 0.8 10*3/uL (1.3-4.4); LYMPH % 11.3 % (27.0-41.0); MEAN CORPUSCULAR HGB 27.1 pg (27.0-31.0); MEAN CORPUSCULAR HGB CONC 30.5 g/dl (33.0-37.0); MEAN PLATELET VOLUME 9.8 fl (9.6-12.3); MONO # 0.5 10*3/uL (0.1-1.0); MONO % 7.1 % (3.0-9.0); NEUT # 5.5 10*3/uL (2.3-7.9); NEUT % 80.4 % (47.0-73.0); PLATELET COUNT AUTOMATED 339 10*3/uL (130-400); RED BLOOD COUNT 3.17 10*6/uL (4.50-5.90); RED CELL DISTRI WIDTH 16.1 % (0-14.5); WHITE BLOOD COUNT 6.8 10*3/uL (4.8-10.8)
[2018-05-25 06:44] LABS: BUN 13 mg/dl (7-24); CHLORIDE 102 mmol/L (98-107); CREATININE 0.72 mg/dL (0.70-1.30); SODIUM 139 mmol/L (136-145)
[2018-05-25 07:24] LABS: POTASSIUM 5.3 mmol/L (3.5-5.1)
[2018-05-25 08:00] VITALS: BP 150/88
[2018-05-25] MEDS ORDERED: AVPAK AZITHROM250 MG PO (11:06)
[2018-05-25] MEDS ORDERED: ATARAX,VISTARIL50 MG PO (11:06)
[2018-05-25] MEDS ORDERED: PREDNISONE10 MG PO (11:06)
[2018-05-25] MEDS ORDERED: MUCINEX ER600 MG PO (11:06)
== END 2018-05-25 13:41 | DRG 871 ==
LOC: ED 10:48 → EDHOLD 12:16 → ICCU 12:16 → 5E 12:16 → ICCU 12:27 → 5E 20:22
PROVIDERS: Emergency Medicine; Student in an Organized Health Care Education/Training Program
DX: A41.9 Sepsis, unspecified organism (principal); J18.9 Pneumonia, unspecified organism; J96.21 Acute and chronic respiratory failure with hypoxia; J96.22 Acute and chronic respiratory failure with hypercapnia; E87.1 Hypo-osmolality and hyponatremia; I31.9 Disease of pericardium, unspecified; E87.8 Other disorders of electrolyte and fluid balance, not elsewhere classified; E83.41 Hypermagnesemia; H54.61 Unqualified visual loss, right eye, normal vision left eye; J45.50 Severe persistent asthma, uncomplicated; D72.819 Decreased white blood cell count, unspecified; J43.9 Emphysema, unspecified; J84.10 Pulmonary fibrosis, unspecified; M94.0 Chondrocostal junction syndrome [Tietze]; D47.3 Essential (hemorrhagic) thrombocythemia; I10 Essential (primary) hypertension; F41.1 Generalized anxiety disorder; D64.9 Anemia, unspecified; E03.9 Hypothyroidism, unspecified; R73.9 Hyperglycemia, unspecified; T38.0X5A Adverse effect of glucocorticoids and synthetic analogues, initial encounter; Y92.89 Other specified places as the place of occurrence of the external cause; Z99.81 Dependence on supplemental oxygen; Z87.891 Personal history of nicotine dependence; Z80.41 Family history of malignant neoplasm of ovary; Z82.49 Family history of ischemic heart disease and other diseases of the circulatory system; Z82.3 Family history of stroke; Z79.899 Other long term (current) drug therapy

== ENCOUNTER → 2018-05-22 | Outpatient (CLI) | payer OTHER | END | disposition home or self-care (01) | LOC: RESCLI 04:19 | DX: I10 Essential (primary) hypertension (principal); J43.9 Emphysema, unspecified; J96.01 Acute respiratory failure with hypoxia; G47.00 Insomnia, unspecified; F41.9 Anxiety disorder, unspecified; E03.9 Hypothyroidism, unspecified; R07.82 Intercostal pain; F17.210 Nicotine dependence, cigarettes, uncomplicated; Z99.81 Dependence on supplemental oxygen; Z79.899 Other long term (current) drug therapy; Z88.8 Allergy status to other drugs, medicaments and biological substances ==

== ENCOUNTER → 2018-06-05 | Outpatient (CLI) | payer OTHER ==
[~2018-06-05] MED LIST changes: +ATARAX,VISTARIL50 MG PO; +HYDROXYZINE PAM25 M1 PO; +IBU600 M1 PO; +Ipratropium Brom3 ML INH
== END | disposition home or self-care (01) ==
LOC: RESCLI 08:49
DX: J44.1 Chronic obstructive pulmonary disease with (acute) exacerbation (principal); F41.9 Anxiety disorder, unspecified; E03.9 Hypothyroidism, unspecified; J96.11 Chronic respiratory failure with hypoxia; J96.12 Chronic respiratory failure with hypercapnia; G89.29 Other chronic pain; I10 Essential (primary) hypertension; R00.0 Tachycardia, unspecified; Z99.81 Dependence on supplemental oxygen; Z79.899 Other long term (current) drug therapy; Z87.891 Personal history of nicotine dependence

== ENCOUNTER 2018-06-19 20:43 | Inpatient (IN) | payer OTHER ==
[~2018-06-19] VITALS: Ht 172.7 cm; Wt 61.1 kg
[2018-06-19] VITALS (7 sets, daily range): BP systolic 89–133; BP diastolic 61–82
--- NOTE | ~2018-06-19 | PR ---
[place], [place] PROGRESS NOTE [id number] #: [id number] ROOM: 516 DOCTOR: DARWIN PUCKETT MD,BANG BIRTHDATE: [birth year] DOS: 06/25/2018 PULMONARY PROGRESS NOTE SUBJECTIVE: He has been noted with no acute respiratory complaints. Still complaining of pain which tends to be sometimes in the chest as well. Shortness of breath occurs with exertion. Has occasional cough. No wheezing. OBJECTIVE: VITAL SIGNS: Normal temperature this morning, respiratory rate 18, heart rate 78, blood pressure 116/70 to 126/58, pulse oxygen saturation noted on 2 liters was 100% saturation. HEENT: No new change. Chronic blindness with partial hearing loss. HEENT examination otherwise was normal. CARDIOVASCULAR: S1 and S2 audible. LUNGS: Without any wheeze or crackles. ABDOMEN: Soft, nontender. Bowel sounds present. EXTREMITIES: No acute edema. IMPRESSION: Stable respiratory status, resolving acute exacerbation of chronic obstructive pulmonary disease, chronic musculoskeletal pain including chest pain. PLAN OF MANAGEMENT: The patient has been considered for home discharge today. He would be getting tapering dose of prednisone. P.r.n. use of Tylenol for the musculoskeletal and chest pain will be ordered by the primary care attending. Other therapy, plan of management, care plan and treatments. BANG GRANADOS MD CM:PNTRANS [id number] BANG PUCKETT MD 06/25/18 2351 interface
--- NOTE | ~2018-06-19 | PR ---
[place], [place] PROGRESS NOTE [id number] #: [id number] ROOM: 516 DOCTOR: DARWIN PUCKETT MD,BANG BIRTHDATE: [birth year] DOS: 06/21/2018 SUBJECTIVE: The patient has been noted comfortable at this time without any acute distress, has been noted with symptoms of shortness breath still occurs with exertion. Symptoms of fever or chills. Denies symptoms of hemoptysis. OBJECTIVE: VITAL SIGNS: For the patient which has been recorded shows a normal temperature, respiratory rate of 22, heart rate of 93-113, blood pressure 135/83-157/89. Pulse oxygen saturation recorded on 4 L nasal cannula was 100% saturation. HEAD, EYES, EARS, NOSE, AND THROAT: Examination shows head was atraumatic. Eyes nonicterus. NECK: Supple. CARDIOVASCULAR SYSTEM: S1, S2 is audible. LUNGS: Noted decreased breath sounds in the lungs bilaterally. There is no wheezing. Crackles at the present time. ABDOMEN: Soft, nontender. Bowel sounds present. EXTREMITIES: Without any acute edema. IMPRESSION: 1. Chronic chest pain was noted at this time. 2. Lactic acidosis was also noted, most likely related to excessive use of the bronchodilator. PLAN OF TREATMENT: The patient will be started on the albuterol sulfate at this time p.r.n. use every 4 hours rather than scheduled dose. DuoNeb was discontinued. Continue Solu-Medrol. Continue antibiotics. Chest x-ray done yesterday, PA and lateral view does not show an acute pulmonary infiltration. BANG GRANADOS MD CM:PNTRANS [id number] BANG PUCKETT MD 06/21/18 1436 interface
--- NOTE | ~2018-06-19 | PR ---
[place], [place] PROGRESS NOTE [id number] #: [id number] ROOM: 516 DOCTOR: DARWIN PUCKETT MD,BANG BIRTHDATE: [birth year] DOS: 06/24/2018 PULMONARY PROGRESS NOTE SUBJECTIVE: The patient is noted comfortable at this time, resting on the bed without any acute distress during this morning of assessment. He complains of generalized aches and shortness breath that occurs with exertion. Denies symptoms of chest pain, fever or chills. Denies symptoms of hemoptysis. OBJECTIVE: VITAL SIGNS: Which were recorded shows normal temperature, respiratory rate 20, heart rate of 104, and blood pressure 160/79 this afternoon. Pulse oxygen saturation was 100% saturation on 3 liters nasal cannula. 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 Shows head was atraumatic, eyes nonicterus. NECK: Supple. CARDIOVASCULAR: S1 and S2 audible. LUNGS: Without any wheezing or crackles. Moderate reduction in breath sounds bilaterally. ABDOMEN: Soft, nontender. IMPRESSION: 1. Stable respiratory status is noted at the present time with ongoing current medical illnesses. 2. Acute exacerbation of chronic obstructive pulmonary disease. 3. Acute tracheobronchitis. 4. Chronic musculoskeletal pain including chest pain. PLAN OF THERAPY: No changes in the plan of care. Continuation of bronchodilators, oxygen supplementation therapy, plan of management and treatment. BANG GRANADOS MD CM:PNTRANS 1433 [id number] BANG PUCKETT MD 06/25/18 0032 interface
--- NOTE | ~2018-06-19 | EKG ---
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
--- NOTE | ~2018-06-19 | EKG ---
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 Puente : 1955 Requested By: SARKIS JALLOH Order Number: [id number] Reading MD: Jv Erickson MD Measurements Intervals [place] Rate: 89 P: 79 DE: 161 QRS: 34 QRSD: 126 T: 57 QT: 387 QTc: 471 Interpretive Statements Sinus rhythm Probable left atrial enlargement IVCD, consider atypical RBBB ST elevation suggests acute pericarditis Baseline wander in lead(s) V2 Compared to ECG 06/21/18 Sinus tachycardia no longer present ST (T wave) deviation still present Electronically Signed On 06-22-2018 12:21:27 PST by Jv Erickson MD CM:EKGRPT:ELECTROCARDIOGRAM REPORT 0124 1221 SARKIS SAGASTUME DRAFT REPORT SARKIS JALLOH DO
--- NOTE | ~2018-06-19 | PR ---
[place], [place] PROGRESS NOTE [facility]: [id number] UNIT #: [id number] ROOM: 516 DOCTOR: BANG LESTER MD BIRTHDATE: [birth year] DOS: 06/22/2018 SUBJECTIVE: The patient was noted comfortable at this time, noted with some cough which were noted productive. ____ associated shortness of breath were noted. Chest pain has been reported intermittently. Denies symptoms of fever or chills. OBJECTIVE: VITAL SIGNS: Normal temperature, respiratory rate 20, heart rate 71, blood pressure 122/75. Pulse oxygen saturation on 2 liters 100% saturation. HEENT: Examination shows head was atraumatic, eyes nonicterus. NECK: Supple. CARDIOVASCULAR: S1, S2 audible. LUNGS: ____ without any wheeze or crackle at the present time. ABDOMEN: Soft, nontender. Bowel sounds present. EXTREMITIES: No acute edema. IMPRESSION: The patient with chronic chest pain, which is musculoskeletal noted with resolving acute exacerbation of chronic obstructive pulmonary disease and acute bronchitis. PLAN AND MANAGEMENT: Continue antibiotic next 24 hours. Possible consideration of discharge the patient in the next 24-48 hours would be expected based on improvement in the respiratory status. BANG LESTER MD CM:PNTRANS [id number] CHAVA PUCKETT MD 06/25/18 0954 CHERYL [email or web address]
--- NOTE | ~2018-06-19 | PR ---
[place], [place] PROGRESS NOTE NAME: [id number] UNIT #: [id number] ROOM: 516 DOCTOR: DARWIN PUCKETT MD,BANG BIRTHDATE: [birth year] DOS: 06/23/2018 SUBJECTIVE: The patient has been noted comfortable at this time, resting. Intermittent mild cough reported without sputum expectoration, shortness of breath, noted decreased chronic chest pain was still noted intermittently, treated with the pain medications. OBJECTIVE: VITAL SIGNS: Normal temperature, respiratory rate of 20, heart rate of 18, blood pressure 160/82, pulse oxygen saturation 3 liters nasal cannula 97% saturation. HEENT: No acute change. CARDIOVASCULAR: S1, S2 audible. LUNGS: Without any wheeze or crackles. ABDOMEN: Soft, nontender. Bowel sounds present. EXTREMITIES: No new changes. IMPRESSION: 1. Resolving acute exacerbation of chronic obstructive pulmonary disease, acute tracheobronchitis. 2. Chronic hypoxic respiratory failure. PLAN OF MANAGEMENT: No changes in the plan of management at this time. Possible discharge home consideration in the morning on oral antibiotic, prednisone and antibiotics could be considered. BANG GRANADOS MD CM:PNTRANS [id number] BANG PUCKETT MD 06/23/18 1755 interface
--- NOTE | ~2018-06-19 | CON ---
[place], [place] REPORT OF CONSULTATION NAME: NICOLE AGUILA [facility] #: [id number] UNIT #: [id number] ROOM: 516 DOCTOR: BANG LESTER MD BIRTHDATE: [birth year] DOS: 06/20/2018 PULMONARY CONSULTATION EVALUATION AND MANAGEMENT CONSULTATION REQUESTED BY: Hospitalist Services. REASON FOR CONSULTATION: Assessment of acute exacerbation of COPD. HISTORY OF PRESENT ILLNESS: This is a 62-year-old white male with history of end-stage COPD with very frequent hospitalization has been admitted in the hospital in 05/2018 to treat for acute exacerbation of COPD and subsequently admitted and treated in the senior living facility. The patient was discharged on 05/25/2018 to senior living facility. The patient stated that he stayed in the nursing facility and underwent rehabilitation for 3 weeks. He stated that he has been recently discharged as he has completed the treatment and the insurance would not be authorizing further stay in the nursing facility. The patient stated that for the last 24 hours prior to admission to the hospital of 06/19/2018 he has developed symptoms of increased shortness of breath recurring with mild exertion walking a few feet at level surface. He was also complaining of pain in the chest, which has been known chronic for this patient as well and described to be worsened. He has also developed symptoms of hemoptysis. The patient denies any symptoms of fever with that. The cough has been noted without any sputum expectoration. He has been assessed in the Emergency Room and admitted to the hospital on 06/19/2018 for further medical management. REVIEW OF SYSTEMS: CONSTITUTIONAL: Reported symptoms of fatigue, tiredness. No fever or chills. EYES: Denies burning, redness, tenderness, or diplopia. EARS, NOSE, THROAT SYMPTOMS: Denies sore throat, hoarseness, otalgia, postnasal drainage or epistaxis. CARDIOVASCULAR: Denies angina pain, edema, pain of the lower extremities. GASTROINTESTINAL: No symptoms of dysphagia, nausea, vomiting, diarrhea, abdominal pain, hematemesis, melena, or hematochezia. GENITOURINARY: No dysuria, suprapubic pain, or hematuria. MUSCULOSKELETAL: No acute joint pain, redness, or tenderness. CENTRAL NERVOUS SYSTEM: No dizziness, headache, diplopia, syncopal episodes. Remaining systems were reviewed, they were noted all negative. PAST MEDICAL HISTORY: 1. Noted with end-stage COPD. 2. Chronic hypoxic respiratory failure, use of oxygen. 3. Past history of syncopal episode, which has been assessed and managed in [facility] in 04/2018. 4. General anxiety disorder. 5. Essential hypertension. 6. Chronic blindness of the right eye. 7. Uncomplicated severe persistent bronchial asthma. 8. Chronic chest pain was reported as well by the patient. [place], [place] REPORT OF CONSULTATION NAME: NICOLE AGUILA UNIT #: [id number] ROOM: 516 DOCTOR: DARWIN PUCKETT MD,BANG BIRTHDATE: [birth year] PAST SURGICAL HISTORY: Known as therapeutic bronchoscopy, the last one done in 04/2018. SOCIAL HISTORY: The patient is , has 2 children, lives at home. Denies history of alcohol use, illicit drug use. Tobacco use was started by this patient at the age of [age] years old, a pack of cigarettes per day. Denying any tobacco use at this time. FAMILY HISTORY: The patient's father at age 5151 years old with complications related to myocardial infarction. Mother at age 6060 years old with complications of ovarian cancer. MEDICATIONS: Current administered medication on this hospitalization. Use of doxepin, levothyroxine, lisinopril, Mucinex, Solu-Medrol 40 mg b.i.d., Lovenox for DVT prophylaxis, hydroxyzine, DuoNeb q.4 hours and other p.r.n. medications. DRUG ALLERGIES: No known drug allergies. PHYSICAL EXAMINATION: GENERAL: This is a 62-year-old white male patient who has been currently noted to be awake and alert without acute distress this morning of assessment. The patient's height recorded by the nursing staff for the current admission with height of 5 feet 8 inches, weight of 134 pounds, BMI 20. VITAL SIGNS: Normal temperature, respiratory rate 20-30, heart rate of 112-67, mild sinus tachycardia, blood pressure 132/74-110/66. Pulse oxygen saturation on 4 liters nasal cannula 98% saturation. HEENT: Examination shows head was atraumatic. Eyes nonicterus. Chronic blindness of the right eye. Mild senile hearing loss as well. NECK: Supple. CARDIOVASCULAR: S1, S2 audible. LUNGS: Noted with moderate general reduction in breath sounds, mild to moderate expiratory wheezing, no crackles. ABDOMEN: Soft, nontender. Bowel sounds present. EXTREMITIES: The patient was noted without edema, clubbing, cyanosis. MUSCULOSKELETAL: Without any acute deformities. CENTRAL NERVOUS SYSTEM: The patient's cranial nerves 2-12 intact. LABORATORY DATA: The patient's CBC that was done yesterday with normal WBC count, hemoglobin 10.3, platelet count normal. PT/PTT yesterday normal. CMP that was done yesterday, normal BUN and creatinine. The CMP that was done this morning, normal BUN and creatinine. Glucose 182. Troponin of 3 sets normal. CBC this morning: WBC count normal, hemoglobin 8.8, platelet count was normal. Lactic acid this morning was recorded at 3.[address] scan of the head that was done without contrast reported no acute intracranial abnormalities. Chest x-ray 1 view that was done reviewed shows changes of COPD and emphysema without any acute pulmonary infiltration area of consolidation. IMPRESSION: 1. The patient had been currently admitted to the hospital with chronic chest [place], [place] REPORT OF CONSULTATION NAME: NICOLE AGUILA UNIT #: [id number] ROOM: 516 DOCTOR: BANG LESTER MD BIRTHDATE: [birth year] pain with acute exacerbation of chronic obstructive pulmonary disease. 2. History of chronic hypoxic respiratory failure as well. Use of oxygen. 3. The patient with frequent hospitalization as well. PLAN OF MANAGEMENT: No changes in the plan of care for the patient at this time would be recommended. Continue use of current corticosteroids, bronchodilator treatment. Monitor respiratory status closely. Obtain a PA lateral chest x-ray to exclude any pulmonary infiltration, especially in the lower lungs. Usual care, other supportive therapy, plan of management and care plan. Additional treatment changes will be ordered with available new data for the patient and other information relevant for the management of the COPD exacerbation. Thanks for allowing me to participate in the care of this patient. BANG GRANADOS MD CM:CONSTR:REPORT OF CONSULTATION 1313 06/20/18 [id number] interface
--- NOTE | ~2018-06-19 | EKG ---
[place], [place] ELECTROCARDIOGRAM REPORT NAME: NICOLE AGUILA UNIT #: [id number] ROOM: 516 DOCTOR: EPIPHANY DRAFT REPORT BIRTHDATE: [birth year] [facility] Test Date: 2018-06-20 Test Time: 02:53:50 Pat Name: NICOLE AGUILA Department: Room: 516 Gender: M Extras Casting Director: KWAME : 1955 Requested By: PARDEEP VALENTIN Order Number: [id number] Reading MD: Des Machado MD Measurements Intervals [place] Rate: 94 P: 78 VT: 213 QRS: -87 QRSD: 130 T: 59 QT: 384 QTc: 481 Interpretive Statements Sinus rhythm Prolonged VT interval RBBB and LAFB Compared to ECG 05/22/2018 11:07:45 First degree AV block now present Sinus tachycardia no longer present Atrial abnormality no longer present ST (T wave) deviation still present Electronically Signed On 06-23-2018 12:39:45 PST by Des Machado MD CM:EKGRPT:ELECTROCARDIOGRAM REPORT [id number] PARDEEP VALENTIN MD EPIPHANY DRAFT REPORT PARDEEP VALENTIN MD
--- NOTE | ~2018-06-19 | EKG ---
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
--- NOTE | ~2018-06-19 | EKG ---
[place], [place] ELECTROCARDIOGRAM REPORT NAME: NICOLE AGUILA UNIT #: [id number] ROOM: 516 DOCTOR: EPIPHANY DRAFT REPORT BIRTHDATE: [birth year] [facility] Test Date: 2018-06-19 Test Time: 23:55:47 Pat Name: NICOLE AGUILA Department: Room: 516 Gender: M Hourly Shift Manager: Helena Lindo : 1955 Requested By: PARDEEP VALENTIN Order Number: [id number] Reading MD: Des Machado MD Measurements Intervals [place] Rate: 96 P: 83 [place]: 193 QRS: -48 QRSD: 131 T: 61 QT: 374 QTc: 473 Interpretive Statements Sinus rhythm RBBB and LAFB Compared to ECG 05/22/2018 11:07:45 Sinus tachycardia no longer present Atrial abnormality no longer present ST (T wave) deviation still present Electronically Signed On 06-23-2018 12:39:30 PST by Des Machado MD CM:EKGRPT:ELECTROCARDIOGRAM REPORT [id number] PARDEEP VALENTIN MD EPIPHANY DRAFT REPORT PARDEEP VALENTIN MD
[2018-06-19 21:05] LABS: VENOUS BLOOD GAS O2 SAT 94.4 % (40-85); VENOUS PH 7.376 (7.32-7.43)
[2018-06-19 21:07] LABS: BASO % 0.3 % (0.0-1.0); EOS # 0.2 10*3/uL (0.0-0.4); EOS % 2.9 % (1.0-4.0); HEMATOCRIT 31.1 % (42.0-52.0); HEMOGLOBIN 10.3 g/dl (14.0-18.0); LYMPH # 1.6 10*3/uL (1.3-4.4); LYMPH % 25.3 % (27.0-41.0); MEAN CELL VOLUME 85.7 fl (80.0-94.0); MEAN CORPUSCULAR HGB 28.4 pg (27.0-31.0); MEAN CORPUSCULAR HGB CONC 33.1 g/dl (33.0-37.0); MEAN PLATELET VOLUME 9.9 fl (9.6-12.3); MONO # 0.8 10*3/uL (0.1-1.0); MONO % 12.4 % (3.0-9.0); NEUT # 3.6 10*3/uL (2.3-7.9); NEUT % 58.5 % (47.0-73.0); PLATELET COUNT AUTOMATED 434 10*3/uL (130-400); RED BLOOD COUNT 3.63 10*6/uL (4.50-5.90); RED CELL DISTRI WIDTH 16.8 % (0-14.5); WHITE BLOOD COUNT 6.2 10*3/uL (4.8-10.8)
[2018-06-19 21:15] LABS: ACT PARTIAL THROMBO TIME 20.5 SECONDS (20.8-31.5)
[2018-06-19 21:27] LABS: ALBUMIN 3.3 gm/dl (3.1-4.5); ALKALINE PHOSPHATASE 83 U/L (45-117); BUN 9 mg/dl (7-24); CHLORIDE 101 mmol/L (98-107); CREATININE 0.94 mg/dL (0.70-1.30); POTASSIUM 4.9 mmol/L (3.5-5.1); SGOT/AST 52 IU/L (3-35); SGPT/ALT 36 U/L (12-78); SODIUM 137 mmol/L (136-145); TOTAL PROTEIN 7.4 gm/dL (6.4-8.2)
[2018-06-19 21:28] LABS: TROPONIN I < 0.015 ng/ml (<0.045)
[2018-06-19] MEDS ORDERED: LEVOTHYROXINE75 MCG PO (21:51)
--- NOTE | 2018-06-19 21:55 | NUR ---
PT WILL NEED SHOWER PRIOR TO ADMISSION TO R/O INFESTATION
--- NOTE | 2018-06-19 22:19 | NUR ---
CALLED VERA WOO ON 5TH FLOOR AT [phone] AND ADVISED HIM THAT THERE WILL BE A DELAY IN TRANSPORT TO ROOM DUE TO PT NEEDING A DECANTAMINATION SHOWER DUE TO BED BEGS INFESTATION
--- NOTE | 2018-06-19 22:40 | NUR ---
PT SHOWERED CLOSTHS PLACED IN YELLOW BAG
--- NOTE | 2018-06-19 23:00 | NUR ---
Time: 2299 A 62 year old MALE admitted to 5E under services of AD SIERRA DO. Pt. arrived via stretcher from ER. Chief complaint: COPD, CHEST PAIN. TAWANDA HARPER
[2018-06-20] VITALS: BP 110/66
--- NOTE | 2018-06-20 00:50 | NUR ---
RN TRANSPORTED PT MEDS TO NURSING BRIDGE MANAGER.
[2018-06-20 02:58] LABS: HEMATOCRIT 27.6 % (42.0-52.0); HEMOGLOBIN 8.8 g/dl (14.0-18.0); MEAN CELL VOLUME 87.3 fl (80.0-94.0); MEAN CORPUSCULAR HGB 27.8 pg (27.0-31.0); MEAN CORPUSCULAR HGB CONC 31.9 g/dl (33.0-37.0); MEAN PLATELET VOLUME 9.1 fl (9.6-12.3); PLATELET COUNT AUTOMATED 377 10*3/uL (130-400); RED BLOOD COUNT 3.16 10*6/uL (4.50-5.90); RED CELL DISTRI WIDTH 16.7 % (0-14.5); WHITE BLOOD COUNT 5.6 10*3/uL (4.8-10.8)
[2018-06-20 03:14] LABS: ALKALINE PHOSPHATASE 74 U/L (45-117); BUN 10 mg/dl (7-24); CHLORIDE 107 mmol/L (98-107); CREATININE 0.85 mg/dL (0.70-1.30); PHOSPHOROUS 3.5 mg/dL (2.5-4.9); POTASSIUM 4.4 mmol/L (3.5-5.1); SGOT/AST 23 IU/L (3-35); SGPT/ALT 30 U/L (12-78); SODIUM 140 mmol/L (136-145); TOTAL PROTEIN 6.8 gm/dL (6.4-8.2)
[2018-06-20 03:38] LABS: MICROCYTOSIS SLIGHT; PLATELET SUFFICIENCY NORMAL (NORMAL); TOTAL CELLS COUNTED 100 #CELLS
--- NOTE | 2018-06-20 05:44 | NUR ---
NOTIFIED DR GRANADOS OF NEW CONSULT.
--- NOTE | 2018-06-20 06:05 | NUR ---
PT C/O MIDSTERNAL CP 11/26. PRN MEDS GIVEN. WILL MONITOR.
[2018-06-20 08:00] VITALS: BP 132/74
--- NOTE | 2018-06-20 11:00 | NUR ---
MEDICATION EFFECTIVE PER PT, CALL LIGHT IN REACH. WILL MONITOR.
[2018-06-20 12:00] VITALS: BP 127/74
--- NOTE | 2018-06-20 13:06 | NUR ---
DR MAYFIELD NOTIFIED OF CRITICAL LACTIC ACID
--- NOTE | 2018-06-20 15:21 | NUR ---
MEDICATION EFFECTIVE PER PT AT PRESENT. CALL LIGHT IN REACH. WILL MONITOR
--- NOTE | 2018-06-20 15:25 | NUR ---
DR MAYFIELD NOTIFIED OF LACTIC ACID.
[2018-06-20 16:00] VITALS: BP 157/89
--- NOTE | 2018-06-20 18:15 | NUR ---
PT REQUESTED AND WAS MEDICATED WITH NORCO FOR C/O GENERALIZED PAIN. CALL LIGHT IN REACH. WILL MONITOR
[2018-06-20 20:00] VITALS: BP 126/75
[2018-06-21] VITALS: BP 135/83
[2018-06-21 08:00] VITALS: BP 136/82
[2018-06-21 12:00] VITALS: BP 127/84
--- NOTE | 2018-06-21 12:12 | NUR ---
Occupational Therapy evaluation completed on 5 with full eval to follow. Precautions include fall risk, impulsivity, O2 dep, IV UE, ww use. Patient is low complexity level 57797 via chart review, testing and evalaution. Recommend OT per pOC and patient may benefit from SNF to enable increases safety to return home alone. Thank you for this referral Aylin Ortez OTR/tena
--- NOTE | 2018-06-21 12:51 | NUR ---
PHYSICAL THERAPY PAtient evaluated on 5, full evaluation to follow. Continue with PT as per plan of care witht fall, 02 and acute debility precautions. May require SNF versus home with home health RN, PT and aides. PAtient is moderate complexity via chart review, tests and evalaution: 89269. Thank you for this referral. Donita Capellan,PT
--- NOTE | 2018-06-21 13:32 | NUR ---
Patient stating he would like a referral to [facility]. Contacted facility and faxed referral with PT/OT keke. Patient will require a precert. Waiting on review.
[2018-06-21 16:00] VITALS: BP 103/58
[2018-06-21 20:00] VITALS: BP 136/79
--- NOTE | 2018-06-21 20:00 | NUR ---
SITTING UP IN BED. TACHYPNEIC. LUNGS DIMINISHED WITH POOR AIR MOVEMENT AND FAINT EXP WHEEZES. PULSE OX 98% 3L HUMIDIFIED. CLAIMS INFREQUENT COUGH, NONE NOTED. OFFERED AND EDUCATED REGARDING TEDS, DECLINED. CLAIMS TO NOT HAVE FEELING IN LEFT FOOT WHICH IS NOT A NEW ISSUE. CALL LIGHT WITHIN REACH. NO VOICED COMPLAINTS
--- NOTE | 2018-06-21 20:18 | NUR ---
24 HR chart check completed.
--- NOTE | 2018-06-21 21:03 | NUR ---
REQUESTED AND RECEIVED NORCO PER PRN ORDER FOR COMPLAINTS OF PAIN RATING A 6 ACROSS CHEST AND BACK, PAIN CHRONIC IN NATURE. CALL LIGHT WITHIN REACH. WILL MONITOR FOR EFFECTIVENESS
[2018-06-21 21:25] VITALS: BP 132/80
--- NOTE | 2018-06-21 21:25 | NUR ---
DR JALLOH, DR MARLOW, AND DR ANN PRESENT ON FLOOR. INFORMED OF HR 140'S ON PROCESS ENVIRONMENTAL TECHNICIAN.
[2018-06-21 21:47] LABS: BASO % 0.1 % (0.0-1.0); HEMATOCRIT 27.4 % (42.0-52.0); HEMOGLOBIN 8.9 g/dl (14.0-18.0); LYMPH # 1.3 10*3/uL (1.3-4.4); LYMPH % 14.5 % (27.0-41.0); MEAN CELL VOLUME 86.7 fl (80.0-94.0); MEAN CORPUSCULAR HGB 28.2 pg (27.0-31.0); MEAN CORPUSCULAR HGB CONC 32.5 g/dl (33.0-37.0); MEAN PLATELET VOLUME 9.3 fl (9.6-12.3); MONO # 1.1 10*3/uL (0.1-1.0); MONO % 12.7 % (3.0-9.0); NEUT # 6.2 10*3/uL (2.3-7.9); NEUT % 71.9 % (47.0-73.0); PLATELET COUNT AUTOMATED 463 10*3/uL (130-400); RED BLOOD COUNT 3.16 10*6/uL (4.50-5.90); RED CELL DISTRI WIDTH 17.2 % (0-14.5); WHITE BLOOD COUNT 8.6 10*3/uL (4.8-10.8)
--- NOTE | 2018-06-21 21:55 | NUR ---
HR 114-140 AT REST. IV LOPRESSOR GIVEN PER 1 TIME ORDER. WILL MONITOR
--- NOTE | 2018-06-21 22:00 | NUR ---
STATES EARLIER NORCO HELPING WITH PAIN
[2018-06-21 22:02] LABS: ALBUMIN 3.1 gm/dl (3.1-4.5); ALKALINE PHOSPHATASE 73 U/L (45-117); BUN 14 mg/dl (7-24); CHLORIDE 102 mmol/L (98-107); CREATININE 0.71 mg/dL (0.70-1.30); PHOSPHOROUS 3.1 mg/dL (2.5-4.9); POTASSIUM 4.6 mmol/L (3.5-5.1); SGOT/AST 28 IU/L (3-35); SGPT/ALT 40 U/L (12-78); SODIUM 140 mmol/L (136-145); TOTAL PROTEIN 6.9 gm/dL (6.4-8.2)
--- NOTE | 2018-06-21 22:25 | NUR ---
PATIENT ALERT AND ORIENTING, RESTING IN BED WATCHING TV. O2 IN USE AT 3L. HR CURRENTLY 92-100 ON FRENCH BINDER. BP 138/82 MANUALLY.
[2018-06-22] VITALS (7 sets, daily range): BP systolic 112–154; BP diastolic 60–98
--- NOTE | 2018-06-22 01:00 | NUR ---
REQUESTED AND RECEIVED NORCO PER PRN ORDER FOR COMPLAINTS OF CHEST/BACK PAIN RATING A 6. WILL MONITOR FOR EFFECTIVENESS
--- NOTE | 2018-06-22 03:00 | NUR ---
MEDS EFFECTIVE. SLEEPING
[2018-06-22 03:29] LABS: BASO % 0.2 % (0.0-1.0); HEMATOCRIT 26.2 % (42.0-52.0); HEMOGLOBIN 8.3 g/dl (14.0-18.0); LYMPH # 0.5 10*3/uL (1.3-4.4); LYMPH % 7.9 % (27.0-41.0); MEAN CELL VOLUME 88.5 fl (80.0-94.0); MEAN CORPUSCULAR HGB CONC 31.7 g/dl (33.0-37.0); MEAN PLATELET VOLUME 9.3 fl (9.6-12.3); MONO # 0.2 10*3/uL (0.1-1.0); MONO % 3.6 % (3.0-9.0); NEUT # 5.6 10*3/uL (2.3-7.9); NEUT % 87.4 % (47.0-73.0); PLATELET COUNT AUTOMATED 415 10*3/uL (130-400); RED BLOOD COUNT 2.96 10*6/uL (4.50-5.90); RED CELL DISTRI WIDTH 17.4 % (0-14.5); WHITE BLOOD COUNT 6.4 10*3/uL (4.8-10.8)
[2018-06-22 03:44] LABS: BUN 15 mg/dl (7-24); CHLORIDE 104 mmol/L (98-107); CREATININE 0.65 mg/dL (0.70-1.30); SODIUM 138 mmol/L (136-145)
--- NOTE | 2018-06-22 04:00 | NUR ---
HR 78. BP 140/76.
--- NOTE | 2018-06-22 05:48 | NUR ---
REQUESTED AND RECEIVED NORCO PER PRN ORDER FOR COMPLAINTS OF BACK/CHEST PAIN RATING A 5. CALL LIGHT WITHIN REACH. WILL MONITOR FOR EFFECTIVENESS
--- NOTE | 2018-06-22 08:00 | NUR ---
OT NOTE Pt was seen this A.M. 1:1 for 15 minute OT session. Upon arrival pt was supine in bed, pt identified by name and . Pt presented to therapy with continous 3L-O2 via NC which he remained on throughout entire session. Pt was declining any ADL or grooming tasks at this time. Educated pt on energy conservation techniques for LB dressing due to donning socks with forward flexion posture and becoming SOB. Also educated pt on energy conservation techniques with sink side grooming. Challenged pt's static standing tolerance needed for increased I in self care tasks and functional transfers, pt was able to tolerate aprox 30 sec, 20 sec, and 60 seconds before sitting due to fatigue. Pt's SpO2 and heart rate remained WFL throughout entire session. Pt was left supine in bed with call light in hand, tray table in place, and phone in reach. Continue with POC as able. EDIE Moffett/Patricia
--- NOTE | 2018-06-22 08:30 | NUR ---
PHYSICAL THERAPY Patient seen this am 1:1 for therapy visit and was supine in bed upon thearapist arrival. Patient presented with continuos 02-3L via VT and demonstrates several bouts of increased anxiety regarding his breathing. Patient HR 73 bpm, SpO2 98% and was educated on relaxation / breathing technique to control anxiety. Patient transfers supine to sit EOB and sit to stand CGA while being monitored for HR/SpO2, tolerating static stand for 60, 70 and 90 seconds with vitals remaining WFL's throughout entire treatment. Patient did not feel up to gait this session and returned to supine in bed with call light, tray table and bed alarm. Will continue per POC as tolerated, total treatment time 14 minutes. Niko Upton, BILLING AND ACCOUNTING STAFF ASSISTANT
--- NOTE | 2018-06-22 10:00 | NUR ---
MEDICATED WITH NORCO PER PRN ORDER FOR COMPLAINTS OF UPPER CHEST PAIN, RATES PAIN 7/10. WILL MONITOR FOR EFFECTIVENESS.
--- NOTE | 2018-06-22 11:26 | NUR ---
PT RESTING MORE COMFORTABLY. EARLIER NORCO EFFECTIVE.
--- NOTE | 2018-06-22 14:16 | NUR ---
MEDICATED WITH NORCO PER PRN ORDER FOR COMPLAINTS OF UPPER CHEST PAIN, RATES PAIN 6/10. WILL MONITOR FOR EFFECTIVENESS.
--- NOTE | 2018-06-22 14:51 | NUR ---
Patient therapy notes and evals faxed to [facility], precert has been started, hospital exemption complete. Waiting on auth.
--- NOTE | 2018-06-22 15:06 | NUR ---
OCCUPATIONAL THERAPY CO-SIGN I approve of the Occupational Therapy notes written above. EPHRAIM EDWARDS OTR/Patricia
--- NOTE | 2018-06-22 15:30 | NUR ---
PT RESTING MORE COMFORTABLY. EARLIER NORCO EFFECTIVE.
--- NOTE | 2018-06-22 15:35 | NUR ---
Patient has auth to go to [facility] within the next 48 hours. Hospitalist nurse director notified.
--- NOTE | 2018-06-22 15:51 | NUR ---
PHYSICAL THERAPY CO-SIGN I approve of the Phyical Therapy notes written above. JUANITO ORTEGA PT
--- NOTE | 2018-06-22 19:19 | NUR ---
MEDICATED WITH NORCO PER PRN ORDER FOR COMPLAINTS OF UPPER CHEST PAIN, RATES PAIN 8/10. WILL MONITOR FOR EFFECTIVENESS.
--- NOTE | 2018-06-22 20:17 | NUR ---
PATIENT IS AAOX3 SITTING IN CHAIR IN HALLWAY LOOKING OUT WINDOW. ASSESSMENT IS COMPLETE WITH EASY AND REGULAR RESPERS ON 3L O2 VIA NASAL CANNULA. NO C/O OR S/S OF DISTRESS IS NOTED AT THIS TIME. SEE SHIFT ASSESSMENT.
--- NOTE | 2018-06-22 21:55 | NUR ---
2200 MEDICATIONS GIVEN AT THIS TIME, WELL PRN RESTORIL FOR INSOMNIA. CALL LIGHT IS WITHIN REACH.
--- NOTE | 2018-06-22 23:12 | NUR ---
PRN NORCO GIVEN AT THIS TIME FOR PATIENT C/O OF ALL OVER PAIN, CALL LIGHT IS WITHIN REACH WILL MONITOR EFFECT.
[2018-06-23] VITALS: BP 120/71
--- NOTE | 2018-06-23 00:12 | NUR ---
PRN RESTORIL AND NORCO SEEMS EFFECTIVE PATIENT IS SLEEPING WITH EASY AND REGULAR RESPERS ON 3L VIA NASAL CANNULA. CALL LIGHT IS WITHIN REACH.
[2018-06-23 07:24] LABS: BASO % 0.2 % (0.0-1.0); HEMATOCRIT 29.5 % (42.0-52.0); HEMOGLOBIN 9.1 g/dl (14.0-18.0); LYMPH # 0.8 10*3/uL (1.3-4.4); LYMPH % 15.4 % (27.0-41.0); MEAN CORPUSCULAR HGB 26.8 pg (27.0-31.0); MEAN CORPUSCULAR HGB CONC 30.8 g/dl (33.0-37.0); MEAN PLATELET VOLUME 9.6 fl (9.6-12.3); MONO # 0.3 10*3/uL (0.1-1.0); MONO % 5.7 % (3.0-9.0); NEUT # 4.3 10*3/uL (2.3-7.9); NEUT % 77.6 % (47.0-73.0); PLATELET COUNT AUTOMATED 530 10*3/uL (130-400); RED BLOOD COUNT 3.39 10*6/uL (4.50-5.90); RED CELL DISTRI WIDTH 16.9 % (0-14.5); WHITE BLOOD COUNT 5.5 10*3/uL (4.8-10.8)
[2018-06-23 07:33] LABS: BUN 15 mg/dl (7-24); CHLORIDE 101 mmol/L (98-107); CREATININE 0.59 mg/dL (0.70-1.30); POTASSIUM 4.3 mmol/L (3.5-5.1); SODIUM 138 mmol/L (136-145)
[2018-06-23 08:00] VITALS: BP 116/82
--- NOTE | 2018-06-23 10:00 | NUR ---
MEDICATED WITH NORCO FOR COMPLAINTS OF UPPER CHEST PAIN, PT RATES PAIN 12/26. WILL MONITOR FOR EFFECTIVENESS.
--- NOTE | 2018-06-23 11:49 | NUR ---
PT RESTING COMFORTABLY. EARLIER NORCO EFFECTIVE.
[2018-06-23 12:00] VITALS: BP 124/88
--- NOTE | 2018-06-23 13:03 | NUR ---
PHYSICAL THERAPY Patient seen this PM for his therapy session, sitting in hallway looking out window- pt not wanting to participate in therapy at first d/t increased fatigue with dressing/cleaning up prior. Pt did agree to perform ther-ex while sitting in chair; B LE ther ex 2x15 reps for LE strength, endurance and function; latasha, LAQs, hip abd/add and ankle pumps-- intermittent rest breaks provided d/t SOB and fatigue. Cues and supervision for technique and progression of exercise. Pt sitting in hallway at session end Mindi Aceves, SALES CENTER MANAGER
--- NOTE | 2018-06-23 14:05 | NUR ---
MEDICATED WITH NORCO PER PRN ORDER FOR COMPLAINTS OF UPPER CHEST PAIN. RATES PAIN 12/26. WILL MONITOR FOR EFFECTIVENESS.
[2018-06-23 16:00] VITALS: BP 126/84
--- NOTE | 2018-06-23 18:24 | NUR ---
MEDICATED WITH NORCO PER PRN ORDER FOR COMPLAINTS OF UPPER CHEST PAIN, RATES PAIN 7/10. WILL MONITOR FOR EFFECTIVENESS.
[2018-06-23 20:00] VITALS: BP 129/86
--- NOTE | 2018-06-23 22:25 | NUR ---
PT C/O OF BODY ACHES 01/26. PRN MEDS GIVEN. WILL CONTINUE TO MONITOR.
[2018-06-24] VITALS: BP 109/66
--- NOTE | 2018-06-24 03:15 | NUR ---
PT C/O BODY PAIN 01/26. PRN MEDS GIVEN. WILL CONTINUE TO MONITOR.
--- NOTE | 2018-06-24 07:37 | NUR ---
PATIENT RECEIVED A NORCO FOR PAIN IN CHEST RATED 6/10.
[2018-06-24 08:00] VITALS: BP 112/58
--- NOTE | 2018-06-24 10:39 | NUR ---
PAIN MEDICATION WAS EFFECTIVE.
[2018-06-24 12:00] VITALS: BP 106/79
--- NOTE | 2018-06-24 12:00 | NUR ---
PATIENT RECEIVED NORCO FOR PAIN IN CHEST RATED 6/10.
--- NOTE | 2018-06-24 14:28 | NUR ---
PAIN MEDICATION WAS EFFECTIVE.
[2018-06-24] MEDS ORDERED: PREDNISONE10 MG PO (15:16)
[2018-06-24] MEDS ORDERED: DOXEPIN HCL10 MG PO (15:16)
[2018-06-24] MEDS ORDERED: LISINOPRIL5 MG PO (15:16)
[2018-06-24] MEDS ORDERED: MUCINEX ER600 MG PO (15:16)
[2018-06-24] MEDS ORDERED: LEVAQUIN500 M2 PO (15:16)
--- NOTE | 2018-06-24 15:20 | NUR ---
PATIENT TACHYCARDIC IN THE 130'S ON CM. PATIENT WAS UP TO CHAIR AT THE TIME. PATIENT HAD BEEN MOVING AROUND PRIOR TO THIS NURSE ENTERING ROOM. PATIENTS DAUGHTER UNHAPPY ABOUT PATIENT BEING DISCHARGED WHEN PATIENT HAS A TACHYCARDIC HEART RHYTHM. PATIENT IS ASYMPTOMATIC CARDIAC JIMENES. C/O SHORTNESS OF BREATH, PATIENT HAS A HISTORY OF COPD. PATIENT HAS CALL LIGHT NEAR BY AND FAMILY IN THE ROOM.
--- NOTE | 2018-06-24 15:54 | NUR ---
PATIENT RECEIVED NORCO FOR PAIN IN HIS CHEST AREA RATED 5/10.
[2018-06-24 16:00] VITALS: BP 116/81
[2018-06-24 20:00] VITALS: BP 126/80
[2018-06-25] VITALS: BP 116/71
--- NOTE | 2018-06-25 01:01 | NUR ---
CALLED TO PT ROOM FOR TYLENOL. STATES THE FIRST DOSE HELPED BUT WORE OFF. MORE TYLENOL GIVEN AT THIS TIME. CALL LIGHT IN REACH.
--- NOTE | 2018-06-25 01:30 | NUR ---
LONG BED BROUGHT INTO PTs ROOM AT THIS TIME. PT TRANSFERRED WITHOUT INCIDENT BY 2 RNS AND 2 PAS. PT STATES HE IS MORE COMFORTABLE. CALL LIGHT IN REACH.
--- NOTE | 2018-06-25 02:45 | NUR ---
24 HR CHART CHECK COMPLETE.
[2018-06-25 08:00] VITALS: BP 126/58
--- NOTE | 2018-06-25 09:41 | NUR ---
OT NOTE Attempted to see pt this A.M. for OT session and upon arrival pt was supine in bed, pt stated that is daughter was on the way to get him because he is being D/C so will not be needing therapy today. Will check with nursing and continue with POC. EDIE Moffett/Patricia
--- NOTE | 2018-06-25 10:25 | NUR ---
PATIENT MEDICATED WITH TYLENOL FOR CHEST DISCOMFORT. RATES 12/26. WILL CHECK EFFECTIVENESS. NO OTHER COMPLAINTS VOICED AT THIS TIME. WILL CONTINUE TO MONITOR.
[2018-06-25] MEDS ORDERED: ARTHRITIS PAIN650 M3 PO (10:49)
--- NOTE | 2018-06-25 11:32 | NUR ---
Discharge instructions reviewed with patient/family. Patient receptive and verbalizes understanding. Follow-up care arranged. Written instructions given to patient/family. IV REMOVED, HEART MONITOR REMOVED JESSICA CASTRO
--- NOTE | 2018-06-25 11:51 | NUR ---
PATIENT OFF FLOOR VIA WHEELCHAIR AT THIS TIME. DAUGHTER WITH HIM. IV REMOVED, HEART MONITOR REMOVED. MEDS RETURNED TO PATIENT FROM PHARMACY.
--- NOTE | 2018-06-25 14:53 | NUR ---
PHYSICAL THERAPY CO-SIGN I approve of the Phyical Therapy notes written above. JUANITO ORTEGA PT
--- NOTE | 2018-06-26 07:54 | NUR ---
OCCUPATIONAL THERAPY CO-SIGN I approve of the Occupational Therapy notes written above. EPHRAIM EDWARDS OTR/Patricia
[2018-07-31] MEDS ORDERED: ATORVASTATIN CA80 M1 PO (21:55)
[2018-07-31] MEDS ORDERED: ASPIRIN ADULT L81 M1 PO (23:26)
[2018-08-03] MEDS ORDERED: PANTOPRAZOLE SO40 MG PO (14:28)
[2018-08-03] MEDS ORDERED: Carafate1 GM/10 ML PO (14:28)
[2018-08-03] MEDS ORDERED: HYDROCODONE-AC1 EAC1 PO (14:28)
[2018-08-03] MEDS ORDERED: VITAMIN D32000 UNI1 PO (14:28)
[2018-08-03] MEDS ORDERED: GAVISCON 80-141 EACH PO (17:20)
[2018-08-24] MEDS ORDERED: DOXEPIN HCL10 MG PO (04:31)
[2018-08-24] MEDS ORDERED: DULERA 200 MCG8.8 GM INH (04:36)
[2018-08-24] MEDS ORDERED: INCRUSE ELLI62.5 MCG INH (04:37)
[2018-08-24] MEDS ORDERED: HYDROCODONE-AC1 EAC1 PO (04:42)
[2018-08-24] MEDS ORDERED: NITROGLYCERIN0.4 MG SL (04:44)
[2018-08-24] MEDS ORDERED: NEURONTIN100 MG PO (09:58)
[2018-08-24] MEDS ORDERED: PROVENTIL HFA6.7 GM INH (10:00)
[2018-08-24] MEDS ORDERED: ACETAMINOPHEN500 M4 PO (10:01)
[2018-08-28] MEDS ORDERED: PREDNISONE10 MG PO (11:31)
[2018-08-28] MEDS ORDERED: LEVOFLOXACIN500 MG PO (11:31)
[2018-08-28] MEDS ORDERED: LISINOPRIL10 M1 PO (11:31)
[2018-08-28] MEDS ORDERED: ATARAX,VISTARIL50 MG PO (11:33)
[2018-08-28] MEDS ORDERED: LORAZEPAM1 MG PO (15:28)
[2018-08-28] MEDS ORDERED: HYDROCODONE-AC1 EAC1 PO (15:28)
== END 2018-06-25 11:49 | disposition home or self-care (01) | DRG 871 ==
LOC: ED 20:43 → EDHOLD 21:53 → 5E 21:53
PROVIDERS: Emergency Medicine Emergency Medical Services; Family Medicine; Internal Medicine; Physician Assistant; ADMIT Internal Medicine
DX: A41.9 Sepsis, unspecified organism (principal); J18.9 Pneumonia, unspecified organism; J96.11 Chronic respiratory failure with hypoxia; J44.0 Chronic obstructive pulmonary disease with (acute) lower respiratory infection; J44.1 Chronic obstructive pulmonary disease with (acute) exacerbation; D64.9 Anemia, unspecified; H54.61 Unqualified visual loss, right eye, normal vision left eye; J45.50 Severe persistent asthma, uncomplicated; R07.89 Other chest pain; J20.9 Acute bronchitis, unspecified; Z99.81 Dependence on supplemental oxygen; E03.9 Hypothyroidism, unspecified; I45.10 Unspecified right bundle-branch block; K44.9 Diaphragmatic hernia without obstruction or gangrene; K29.50 Unspecified chronic gastritis without bleeding; D47.3 Essential (hemorrhagic) thrombocythemia; R20.0 Anesthesia of skin; I10 Essential (primary) hypertension; J84.10 Pulmonary fibrosis, unspecified; E55.9 Vitamin D deficiency, unspecified; R74.0 Nonspecific elevation of levels of transaminase and lactic acid dehydrogenase [LDH]; F41.1 Generalized anxiety disorder; Z87.891 Personal history of nicotine dependence; Z80.41 Family history of malignant neoplasm of ovary; Z82.49 Family history of ischemic heart disease and other diseases of the circulatory system

== ENCOUNTER → 2018-07-17 | Outpatient (CLI) | payer OTHER ==
[~2018-07-17] MED LIST changes: +ACETAMINOPHEN500 M4 PO; +ARTHRITIS PAIN650 M3 PO; +ASMANEX220 MC2 INH; +ASPIRIN ADULT L81 M1 PO; +ATORVASTATIN CA80 M1 PO; +AUGMENTIN 875-875 MG PO; +BUSPAR15 MG PO; +CEFUROXIME AXE250 MG PO; +Carafate1 GM PO; +Carafate1 GM/10 ML PO; +DALI500T PO; +DILTIAZEM HCL60 MG PO; +FEROSUL325 MG PO; +GAVISCON 80-141 EACH PO; +Ipratropium Brom3 ML NEB; +LEVOFLOXACIN500 MG PO; +LEVOTHYROXINE75 MCG PO; +LISINOPRIL10 M1 PO; +LORAZEPAM1 MG PO; +MOBIC7.5 MG PO; +Motrin,Rufen800 MG PO; +NEURONTIN100 MG PO; +NITROGLYCERIN0.4 MG SL; +NITROSTAT0.4 MG SL; +PANTOPRAZOLE SO40 MG PO; +PREDNISONE5 MG PO; +PREDNISONE50 MG PO; +REMERON30 M1 PO; +TRAMADOL HCL50 MG PO; +TYLENOL EXTRA500 MG PO; +VITAMIN D32000 UNI1 PO; +ZESTRIL,PRINIVIL5 MG PO
== END | disposition home or self-care (01) ==
LOC: RESCLI 01:49
DX: I10 Essential (primary) hypertension (principal); I20.8 Other forms of angina pectoris; F41.9 Anxiety disorder, unspecified; E03.9 Hypothyroidism, unspecified; G89.29 Other chronic pain; J44.9 Chronic obstructive pulmonary disease, unspecified; F95.8 Other tic disorders; Z99.81 Dependence on supplemental oxygen; Z79.899 Other long term (current) drug therapy; Z90.49 Acquired absence of other specified parts of digestive tract; Z87.891 Personal history of nicotine dependence; Z88.8 Allergy status to other drugs, medicaments and biological substances

== ENCOUNTER → 2018-07-25 | Outpatient (CLI) | payer OTHER ==
[~2018-07-25] MED LIST changes: -ASMANEX220 MC2 INH; -AUGMENTIN 875-875 MG PO; -BUSPAR15 MG PO; -CEFUROXIME AXE250 MG PO; -Carafate1 GM PO; -DALI500T PO; -DILTIAZEM HCL60 MG PO; -FEROSUL325 MG PO; -Ipratropium Brom3 ML NEB; -MOBIC7.5 MG PO; -Motrin,Rufen800 MG PO; -NITROSTAT0.4 MG SL; -PREDNISONE5 MG PO; -REMERON30 M1 PO; -TRAMADOL HCL50 MG PO; -TYLENOL EXTRA500 MG PO; -ZESTRIL,PRINIVIL5 MG PO
== END | disposition home or self-care (01) ==
LOC: RESCLI 09:57
DX: Z11.59 Encounter for screening for other viral diseases (principal); I10 Essential (primary) hypertension; F32.9 Major depressive disorder, single episode, unspecified; J44.1 Chronic obstructive pulmonary disease with (acute) exacerbation; F41.9 Anxiety disorder, unspecified; E03.9 Hypothyroidism, unspecified; I25.10 Atherosclerotic heart disease of native coronary artery without angina pectoris; E78.5 Hyperlipidemia, unspecified; G89.29 Other chronic pain; E55.9 Vitamin D deficiency, unspecified; R00.0 Tachycardia, unspecified; R07.1 Chest pain on breathing; Z99.81 Dependence on supplemental oxygen; Z79.899 Other long term (current) drug therapy; Z79.82 Long term (current) use of aspirin; Z88.8 Allergy status to other drugs, medicaments and biological substances; Z87.891 Personal history of nicotine dependence

== ENCOUNTER 2018-08-12 20:51 | Emergency (ER) | payer OTHER ==
[~2018-08-12] VITALS: Ht 175.2 cm; Wt 61.2 kg
--- NOTE | ~2018-08-12 | EKG ---
[place], [place] ELECTROCARDIOGRAM REPORT NAME: NICOLE AGUILA UNIT #: [id number] ROOM: DOCTOR: EPIPHANY DRAFT REPORT BIRTHDATE: [birth year] [facility] Test Date: 2018-08-12 Test Time: 21:02:22 Pat Name: NICOLE AGUILA Department: Room: Gender: M Clinical Law Professor: Ashok Akbar : 1955 Requested By: YEYO FUENTES Order Number: [id number] Reading MD: Vince Lindo MD Measurements Intervals [place] Rate: 99 P: 85 [place]: 201 QRS: -90 QRSD: 129 T: 84 QT: 361 QTc: 464 Interpretive Statements Sinus rhythm Borderline prolonged [place] interval Right atrial enlargement RBBB and LAFB ST elevation, consider lateral injury Baseline wander in lead(s) V3 Compared to ECG 08/01/2018 01:22:30 Atrial abnormality now present Left anterior fascicular block now present ST (T wave) deviation now present Myocardial infarct finding still present Electronically Signed On 08-17-2018 9:38:03 PST by Vince Lindo MD CM:EKGRPT:ELECTROCARDIOGRAM REPORT 01 0938 YEYO SAGASTUME DRAFT REPORT YEYO FUENTES DO
[~2018-08-12 20:51] MED LIST changes: -ACETAMINOPHEN500 M4 PO; -LEVOFLOXACIN500 MG PO; -LISINOPRIL10 M1 PO; -LORAZEPAM1 MG PO; -NEURONTIN100 MG PO; -NITROGLYCERIN0.4 MG SL; -PREDNISONE50 MG PO
[2018-08-12 21:16] LABS: BASO # 0.1 10*3/uL (0.0-0.1); EOS # 0.1 10*3/uL (0.0-0.4); EOS % 2.1 % (1.0-4.0); HEMATOCRIT 30.7 % (42.0-52.0); HEMOGLOBIN 9.7 g/dl (14.0-18.0); LYMPH % 29.3 % (27.0-41.0); MEAN CELL VOLUME 80.8 fl (80.0-94.0); MEAN CORPUSCULAR HGB 25.5 pg (27.0-31.0); MEAN CORPUSCULAR HGB CONC 31.6 g/dl (33.0-37.0); MEAN PLATELET VOLUME 9.5 fl (9.6-12.3); MONO # 0.7 10*3/uL (0.1-1.0); MONO % 9.8 % (3.0-9.0); NEUT # 3.9 10*3/uL (2.3-7.9); NEUT % 57.5 % (47.0-73.0); PLATELET COUNT AUTOMATED 563 10*3/uL (130-400); RED CELL DISTRI WIDTH 16.5 % (0-14.5); WHITE BLOOD COUNT 6.8 10*3/uL (4.8-10.8)
[2018-08-12 21:25] LABS: ACT PARTIAL THROMBO TIME 26.7 SECONDS (20.8-31.5)
[2018-08-12 21:41] LABS: ALBUMIN 3.4 gm/dl (3.1-4.5); ALKALINE PHOSPHATASE 87 U/L (45-117); BUN 11 mg/dl (7-24); CHLORIDE 98 mmol/L (98-107); CREATININE 0.78 mg/dL (0.70-1.30); POTASSIUM 3.7 mmol/L (3.5-5.1); SGOT/AST 18 IU/L (3-35); SGPT/ALT 24 U/L (12-78); SODIUM 135 mmol/L (136-145); TOTAL PROTEIN 8.2 gm/dL (6.4-8.2)
[2018-08-12 21:44] LABS: TROPONIN I < 0.015 ng/ml (<0.045)
[2018-08-12] MEDS ORDERED: PREDNISONE50 MG PO (23:33)
[2018-08-24] MEDS ORDERED: DOXEPIN HCL10 MG PO (04:31)
[2018-08-24] MEDS ORDERED: DULERA 200 MCG8.8 GM INH (04:36)
[2018-08-24] MEDS ORDERED: INCRUSE ELLI62.5 MCG INH (04:37)
[2018-08-24] MEDS ORDERED: HYDROCODONE-AC1 EAC1 PO (04:42)
[2018-08-24] MEDS ORDERED: NITROGLYCERIN0.4 MG SL (04:44)
[2018-08-24] MEDS ORDERED: NEURONTIN100 MG PO (09:58)
[2018-08-24] MEDS ORDERED: PROVENTIL HFA6.7 GM INH (10:00)
[2018-08-24] MEDS ORDERED: ACETAMINOPHEN500 M4 PO (10:01)
[2018-08-28] MEDS ORDERED: PREDNISONE10 MG PO (11:31)
[2018-08-28] MEDS ORDERED: LEVOFLOXACIN500 MG PO (11:31)
[2018-08-28] MEDS ORDERED: LISINOPRIL10 M1 PO (11:31)
[2018-08-28] MEDS ORDERED: ATARAX,VISTARIL50 MG PO (11:33)
[2018-08-28] MEDS ORDERED: HYDROCODONE-AC1 EAC1 PO (15:28)
[2018-08-28] MEDS ORDERED: LORAZEPAM1 MG PO (15:28)
[2018-09-20] MEDS ORDERED: LEVOFLOXACIN500 MG PO (11:31)
[2018-09-20] MEDS ORDERED: PREDNISONE10 MG PO (11:33)
[2018-09-20] MEDS ORDERED: MOBIC7.5 MG PO (11:34)
[2018-09-25] MEDS ORDERED: MOBIC7.5 MG PO (10:02)
[2018-09-25] MEDS ORDERED: ATIVAN1 MG PO (10:05)
[2018-09-25] MEDS ORDERED: NORCO 5-325 TA1 EACH PO (10:07)
[2018-09-25] MEDS ORDERED: VITAMIN D32000 UNI1 PO (10:10)
[2018-09-25] MEDS ORDERED: ZESTRIL,PRINIVIL5 MG PO (10:13)
[2018-12-13] MEDS ORDERED: ASPIRIN ADULT L81 M1 PO (18:52)
[2018-12-13] MEDS ORDERED: INCRUSE ELLI62.5 MCG INH (18:58)
[2018-12-18] MEDS ORDERED: REMERON30 M1 PO (14:02)
[2018-12-18] MEDS ORDERED: BUSPAR15 MG PO (14:02)
[2018-12-18] MEDS ORDERED: DILTIAZEM HCL60 MG PO (14:04)
== END 2018-08-13 00:12 | disposition home or self-care (01) ==
LOC: ED 20:51
PROVIDERS: Student in an Organized Health Care Education/Training Program
DX: R07.89 Other chest pain (principal); J44.9 Chronic obstructive pulmonary disease, unspecified; I10 Essential (primary) hypertension; E03.9 Hypothyroidism, unspecified; Z79.82 Long term (current) use of aspirin; Z87.891 Personal history of nicotine dependence

== ENCOUNTER 2018-11-07 16:20 | Inpatient (IN) | payer OTHER ==
[2018-11-07] VITALS (9 sets, daily range): BP systolic 93–127; BP diastolic 58–100
[~2018-11-07] VITALS: Ht 170.2 cm; Wt 60.9 kg
--- NOTE | ~2018-11-07 | WRIGHTHP ---
[place], [place] PATIENT HISTORY AND PHYSICAL EXAM NAME: NICOLE AGUILA [facility] #: [id number] UNIT #: [id number] ROOM: 402 DOCTOR: NANCY PALACIOS MD BIRTHDATE: [birth year] DOS: 11/07/2018 HISTORY OF PRESENT ILLNESS: The patient is a 63-year-old, not known to me. He is currently seeing Dr. Webster as an outpatient. He has had multiple admissions to the hospital, reviewed some of those records from the previous admissions. He states that he has had dizziness and lightheadedness for the last couple of days and he had nearly blacked out yesterday. He sat back in his chair, tried to get up again. Again, felt like he was going to black out. He called his daughter who called the ambulance and was brought to the Emergency Room. He denies having any abdominal pain, nausea and emesis. He has had some substernal chest pain on and off for several weeks. His shortness of breath is pretty much at his baseline. He denies having any fever or chills, any cough or sputum production. PAST MEDICAL HISTORY: Significant for: 1. Chronic respiratory failure. 2. Chronic obstructive pulmonary disease. 3. History of cigarette smoking. 4. Last hospitalization in 09/2018 with chronic obstructive pulmonary disease exacerbation. 5. Chronic iron deficiency anemia, status post endoscopy and colonoscopy in 07/2018 showing gastritis and a tubular adenoma removal along with diverticulosis. 6. Generalized anxiety disorder, protein-calorie malnutrition moderate. MEDICATIONS: He is currently on are Asmanex 2 puffs daily, Dulera 200 twice a day, Incruse Ellipta inhalation daily, aspirin 81 daily, vitamin D 2000 units daily, ibuprofen 800 t.i.d., doxepin 10 daily, lisinopril 5 daily, prednisone tapering dose, Nitrostat 0.4 p.r.n. SOCIAL HISTORY: Nonsmoker, does not use any alcohol. States that he last had a couple of beers a week ago. He does not use any recreational drugs. He lives at home alone. He has 2 grown daughters. FAMILY HISTORY: Significant for mother who of ovarian cancer and father of heart disease. He has 2 brothers and a sister. Sister is healthy. Two brothers both have underlying heart disease and has had stents and open heart surgery. PHYSICAL EXAMINATION: GENERAL: He is awake and alert and oriented. He is tachypneic. VITAL SIGNS: Blood pressure is 130/80, pulse of 90, respirations 20, temperature 97.4. LUNGS: Diminished breath sounds. No wheezes, rales or rhonchi heard. HEART: Regular. ABDOMEN: Obese, soft, nontender. EXTREMITIES: Without any edema. LABORATORY DATA: Chest x-ray shows COPD. Lactic acid is 2.5. Electrocardiogram showed sinus tachy, nonspecific ST-T wave changes, right [place], [place] PATIENT HISTORY AND PHYSICAL EXAM NAME: NICOLE AGUILA UNIT #: [id number] ROOM: 402 DOCTOR: NANCY PALACIOS MD BIRTHDATE: [birth year] bundle branch block. WBC count is 5.6, hemoglobin 6.9, hematocrit 23.1, platelets 549. Protime is 11.4, INR 1.0. Comprehensive glucose 117, BUN 7, creatinine 0.78. Electrolytes normal. ASSESSMENT AND PLAN: 1. The patient who presents with near-syncopal episode every time he tried to get up, he felt like he was going to blackout. This is most likely from his chronic iron deficiency anemia. His hemoglobin is pretty low. Two units of transfusion will be arranged. Iron and ferritin quite low and the patient therefore will be started on iron IV, will be converted to p.o. iron before discharge. Hemoccults have been ordered and a consultation with Dr. Rivera is obtained. He also is advised not to take any Motrin, which could be increasing risk of GI bleed because he has a known history of esophageal ulcer and gastritis in 07/2018. Aspirin is also to be held. I did not give him any Lovenox because of his severe anemia. 2. Chest pains, possibly from anemia, rule out myocardial infarction protocol so far was negative. A consultation with Dr. Kan has been obtained. Once the CBC becomes normal, he may benefit from cardiac catheterization. He underwent a stress test in 11/2017, which was unremarkable. 3. Chronic obstructive pulmonary disease with chronic respiratory failure. He seems to be using some repetitious use of steroid inhalers. Further adjustments in medications will be made and add Daliresp. 4. Benign hypertension, controlled. NANCY PALACIOS MD CM:HISPHYS:PATIENT HISTORY AND PHYSICAL EXAMINATION 4 [phone] NANCY PALACIOS MD 11/08/18 0855 interface
--- NOTE | ~2018-11-07 | CON ---
[place], [place] REPORT OF CONSULTATION [id number] UN[facility] #: [id number] ROOM: 402 DOCTOR: LADONNA DE LA VEGAVISH BIRTHDATE: [birth year] DOS: 11/09/2018 HISTORY OF PRESENT ILLNESS: The patient is a 63-year-old who has presented to the Emergency Room with a chief complaint of anemia. Two episode of syncope, status post transfusion and stabilization. Iron deficiency is known. I have been asked for assessment of the patient in regard. At the time of admission, his white blood cell was 5.6, H and H of 6 and 23. Microcytic indices. INR was 1.0. Troponin there was no evidence of pathology. His lactic acid 1.8. CBC differential, improved after multi-transfusion. Basic metabolic panel stabilized. PAST MEDICAL HISTORY: COPD, diverticulosis, anxiety disorder, bright blood per rectum, hypothyroidism. PAST SURGICAL HISTORY: Endoscopies, tonsillectomy, hernia repair. SOCIAL HISTORY: Three to four beers per week. Past smoker. FAMILY HISTORY: Noncontributory. MEDICATIONS: Medication list has been reviewed. Including ibuprofen 800 mg t.i.d. p.r.n., and amongst multi other medications that are noncontributory to his blood loss except Mobic 7.5 mg b.i.d. ALLERGIES: No known medications. REVIEW OF SYSTEMS: HEAD, EYES, EARS, NOSE, AND THROAT: Denies double vision, blurred vision. RESPIRATORY: Denies shortness of breath. CARDIOVASCULAR: Denies acute chest pain. DIGESTIVE SYSTEM: No hematemesis, no hematochezia. PHYSICAL EXAMINATION: VITAL SIGNS: Stable. HEAD, EYES, EARS, NOSE, AND THROAT: Within normal limits. NECK: Supple, no thyromegaly, no cervical lymphadenopathy. CHEST: Symmetric anatomy, equal expansion. No wheeze, no rhonchi. HEART: Normal sinus rhythm, no gallop, no murmur. ABDOMEN: Soft. No hepato-organomegaly. Bowel sounds present. No pulsatile mass. EXTREMITIES: Within normal limits. IMPRESSION: Anemia, status post multi-transfusion, iron deficiency. The patient on Mobic 7.5 mg b.i.d. The patient on ibuprofen 800 mg p.r.n., possibility of blood loss from either any source would be expected blood loss per rectum also has a concern. PLAN AND DISCUSSION: We are going to proceed with colonoscopic and endoscopic assessment. [place], [place] REPORT OF CONSULTATION NAME: NICOLE AGUILA UNIT #: [id number] ROOM: [facility] DOCTOR: LADONNA DE LA VEGA,VISH BIRTHDATE: [birth year] VISH DOUGHERTY MD CM:CONSTR:REPORT OF CONSULTATION 1639 11/28/18 0631 interface
--- NOTE | ~2018-11-07 | EKG ---
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 RESP : 1955 Requested By: MARGIE MOREL Order Number: [id number] Reading MD: Vince Lindo MD Measurements Intervals [place] Rate: 119 P: 93 IA: 162 QRS: -144 QRSD: 117 T: 36 QT: 332 QTc: 468 Interpretive Statements Sinus tachycardia Probable left atrial enlargement Incomplete right bundle branch block Probable inferior infarct, recent Lateral leads are also involved Baseline wander in lead(s) V1,V2 Compared to ECG 09/24/2018 20:25:11 Incomplete right bundle-branch block now present Myocardial infarct finding now present Ventricular premature complex(es) no longer present ST (T wave) deviation no longer present Electronically Signed On 11-09-2018 9:44:39 PDT by Vince Lindo MD CM:EKGRPT:ELECTROCARDIOGRAM REPORT 30 0944 MARIGE CUELLAR DRAFT REPORT MARGIE MOREL M.D.
--- NOTE | ~2018-11-07 | PR ---
[place], [place] PROGRESS NOTE NAME: NICOLE AGUILA [facility] #: [id number] UNIT #: [id number] ROOM: 402 DOCTOR: NANCY PALACIOS MD BIRTHDATE: [birth year] DOS: SUBJECTIVE: The patient is about the same, does not have any new complaints. He has decided to go live with his daughter. For now, he is afraid to go home and live on his own. He states that he is unable to take care of himself. OBJECTIVE: VITAL SIGNS: Graphic trend shows a pressure 102/72, pulse of 90, respirations 18, temperature 98.1. LUNGS: Diminished breath sounds. No wheezes, rales or rhonchi heard. HEART: Regular. ABDOMEN: Obese. EXTREMITIES: Without any edema. ASSESSMENT AND PLAN: 1. Acute exacerbation of chronic obstructive pulmonary disease, improved. 2. Chronic respiratory failure, stable, continued to require oxygen supplementation. 3. Iron deficiency anemia with a near-syncopal episode. The patient did have endoscopy and colonoscopy, showed moniliasis and diverticulosis. No bleed was seen. The patient has been on iron supplements both IV and p.o. as well as blood transfusion. No blood work has been done since the . We will do stat labs today before the patient is being discharged. NANCY PALACIOS MD CM:PNTRANS [id number] NANCY PALACIOS MD 11/13/18 1324 interface
--- NOTE | ~2018-11-07 | EKG ---
[place], [place] ELECTROCARDIOGRAM REPORT NAME: NICOLE AGUILA UNIT #: [id number] ROOM: 402 DOCTOR: POLO DRAFT REPORT BIRTHDATE: [birth year] [facility] Test Date: 2018-11-07 Test Time: 22:01:39 Pat Name: NICOLE AGUILA Department: Room: 402 Gender: M [employer]: SS RESP : 1955 Requested By: CA SANDY DNP Order Number: [id number] Reading MD: Vince Lindo MD Measurements Intervals [place] Rate: 99 P: 81 PA: 197 QRS: 90 QRSD: 123 T: 60 QT: 358 QTc: 460 Interpretive Statements Sinus rhythm Probable left atrial enlargement RBBB and LPFB ST elevation, consider inferior injury Baseline wander in lead(s) V2 Compared to ECG 09/24/2018 20:25:11 Left posterior fascicular block now present Myocardial infarct finding now present Sinus tachycardia no longer present Ventricular premature complex(es) no longer present ST (T wave) deviation still present Electronically Signed On 11-09-2018 9:45:13 PDT by Vince Lindo MD CM:EKGRPT:ELECTROCARDIOGRAM REPORT 00 0945 CA HURTADOANY DRAFT REPORT CA SANDY DNP
--- NOTE | ~2018-11-07 | EKG ---
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: : 1955 Requested By: MARGIE MOREL Order Number: [id number] Reading MD: Vince Lindo MD Measurements Intervals [place] Rate: 108 P: 83 NE: 182 QRS: -106 QRSD: 117 T: 58 QT: 334 QTc: 448 Interpretive Statements Sinus tachycardia Probable left atrial enlargement Incomplete right bundle branch block ST elevation, consider inferior injury Baseline wander in lead(s) V2 Compared to ECG 09/24/2018 20:25:11 Incomplete right bundle-branch block now present Myocardial infarct finding now present Ventricular premature complex(es) no longer present ST (T wave) deviation still present Electronically Signed On 11-09-2018 9:44:11 PDT by Vince Lindo MD CM:EKGRPT:ELECTROCARDIOGRAM REPORT 1619 0944 MARGIE CUELLAR DRAFT REPORT MARGIE MOREL M.D.
--- NOTE | ~2018-11-07 | POSTOPNOTE ---
[place], [place] POSTOPERATIVE PROGRESS NOTE NAME: NICOLE AGUILA UNIT #: [id number] ROOM: 402 DOCTOR: VISH DOUGHERTY MD BIRTHDATE: [birth year] DATE: 11/09/18 GI NOTE PREOPERATIVE DIAGNOSIS: ANEMIA, GI BLEED POSTOP UPPER GI PROC/FINDINGS: UPPER GI PROCEDURE/SURGERY: EGD WITH STATUS POST BRUSH FOR FUNGAL STUDY UPPER GI FINDINGS: ESOPHAGEAL MONILIASIS, HIATAL HERNIA, GASTRITIS POSTOP LOWER GI PROC/FINDINGS: LOWER GI PROCEDURE/SURGERY:COLONOSCOPY LOWER GI FINDINGS: DIVERTICULOSIS VISH DOUGHERTY MD CM:POSTOPN 2 VISH DOUGHERTY MD 11/21/18 0831 MARY CAGLE MIS.R
--- NOTE | ~2018-11-07 | EKG ---
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 RESP : 1955 Requested By: MARGIE MOREL Order Number: [id number] Reading MD: Vince Lindo MD Measurements Intervals [place] Rate: 94 P: 87 NC: 164 QRS: 89 QRSD: 128 T: 61 QT: 380 QTc: 476 Interpretive Statements Sinus rhythm Probable left atrial enlargement IVCD, consider atypical RBBB ST elevation, consider inferior injury Baseline wander in lead(s) V3 Compared to ECG 09/24/2018 20:25:11 Myocardial infarct finding now present Sinus tachycardia no longer present Ventricular premature complex(es) no longer present ST (T wave) deviation still present Electronically Signed On 11-09-2018 9:44:14 PDT by Vince Lindo MD CM:EKGRPT:ELECTROCARDIOGRAM REPORT 1703 0944 MARGIE CUELLAR DRAFT REPORT MARGIE MOREL M.D.
--- NOTE | ~2018-11-07 | PR ---
[place], [place] PROGRESS NOTE NAME: NICOLE AGUILA UNIT #: [id number] ROOM: 402 DOCTOR: NANCY PALACIOS MD BIRTHDATE: [birth year] DOS: SUBJECTIVE: The patient complains of chest discomfort and is requesting his morphine, states that he has been taking ibuprofen and Tylenol at home. OBJECTIVE: VITAL SIGNS: Graphic trend shows blood pressure of 132/74, pulse of 88, respirations 19, temperature 97.5. LUNGS: Clear. HEART: Regular. ABDOMEN: Soft. EXTREMITIES: Without any edema. ASSESSMENT AND PLAN: 1. Chest pain, most likely pleuritic versus musculoskeletal in nature, morphine seems to help. We will instead place him on tramadol. If this works, he should be able to go home on the medicine. 2. Chronic iron deficiency anemia. Hemoccults were negative. The patient is awaiting endoscopy, colonoscopy this morning. Blood transfusion and iron supplements were ordered. CBC and basic was ordered for today, no results available yet. 3. Iron supplements p.o. will be started and I will discontinue the morphine because he seems to be getting a little dependent, on the medicine. 4. Chest pain with negative cardiac workup. Appreciate Dr. Lindo's input. NANCY PALACIOS MD CM:PNTRANS [phone] NANCY PALACIOS MD 11/09/18 1031 interface
--- NOTE | ~2018-11-07 | PR ---
[place], [place] PROGRESS NOTE NAME: NICOLE AGUILA UNIT #: [id number] ROOM: 402 DOCTOR: PALMIRA DUMONT MD BIRTHDATE: [birth year] DOS: 11/11/2018 SUBJECTIVE: The patient not feeling comfortable in going home and living by himself. He is too weak and says he cannot make it and this is what I discussed with him yesterday when he wanted to go home. OBJECTIVE: VITAL SIGNS: Blood pressure 126/80, heart rate of 86 beats per minute, breathing 18-22 times per minute, temperature 98 degrees Fahrenheit. GENERAL APPEARANCE: The patient is alert and oriented x 3, in no visible distress. Generalized weakness. HEENT AND NECK: Exam within normal limits. CARDIOVASCULAR SYSTEM: Heart rate is regular in rate and rhythm. S1 and S2 normally audible. LUNGS: Decreased breath sounds all over. ABDOMEN: Soft, nontender. No obvious organomegaly. Bowel sounds are present. EXTREMITIES: Without significant cyanosis or edema. IMPRESSION: 1. The patient has pleuritic chest pain versus musculoskeletal chest pains, negative cardiac enzymes, now being treated with tramadol. 2. Chronic iron deficiency anemia with Hemoccult stools negative. The patient noticed some blood in the stools today, possibly from hemorrhoids. The patient is status post panendoscopy by Dr. Rivera showing esophageal moniliasis and diverticulosis on colonoscopy. The patient was given blood transfusion and recommended treatment with PPI. 3. The patient with adult failure to thrive is now afraid to go home by himself. This was discussed with him yesterday also, he would rather go home with his family, which he is trying to arrange. 4. Iron deficiency anemia and gastrointestinal bleed. The patient's iron is being replaced. 5. Benign essential hypertension, treated and controlled. 6. Advanced end-stage chronic obstructive pulmonary disease with chronic respiratory failure, being treated with bronchodilators. [place], [place] PROGRESS NOTE NAME: NICOLE AGUILA UNIT #: [id number] ROOM: 402 DOCTOR: PALMIRA DUMONT MD BIRTHDATE: [birth year] PALMIRA DUMONT MD CM:GREGORIO [id number] PALMIRA DUMONT MD 11/11/18 1735 interface
--- NOTE | ~2018-11-07 | PR ---
[place], [place] PROGRESS NOTE [id number] UNIT #: [id number] ROOM: 402 DOCTOR: PALMIRA DUMONT MD BIRTHDATE: [birth year] DOS: 11/12/2018 SUBJECTIVE: The patient has made some new living arrangements for himself with the family for tomorrow he says, but cannot go home today because he cannot live by himself. He realizes. OBJECTIVE: GENERAL APPEARANCE: The patient is alert and oriented x 3, in no visible distress. VITAL SIGNS: Blood pressure 101/64, heart rate 86 beats per minute, breathing 20 times per minute, temperature 98 degrees Fahrenheit. HEENT AND NECK: Exam within normal limits. CARDIOVASCULAR SYSTEM: Heart rate is regular in rate and rhythm. S1 and S2 normally audible. LUNGS: Decreased breath sounds all over. ABDOMEN: Soft, nontender. No obvious organomegaly. Bowel sounds are present. EXTREMITIES: Without significant cyanosis or edema. IMPRESSION: 1. Pleuritic and musculoskeletal chest pains now controlled with tramadol. 2. Chronic iron deficiency anemia with Hemoccult negative stools, status post panendoscopy by Dr. Rivera showing esophageal moniliasis and diverticulosis on the colonoscopy. 3. Advance adult failure to thrive. The patient is working with physical therapy. 4. Generalized weakness. 5. Chronic respiratory failure and oxygen dependence with centrilobular emphysema. The patient uses oxygen all the time. 6. Benign essential hypertension, treated and controlled. PALMIRA DUMONT MD CM:PNTRANS [id number] PALMIRA DUMONT MD 11/12/18 1627 interface
--- NOTE | ~2018-11-07 | DS ---
[place], [place] DISCHARGE SUMMARY NAME: NICOLE AGUILA [facility] #: [id number] UNIT #: [id number] ROOM: 402 DOCTOR: NANCY PALACIOS MD BIRTHDATE: [birth year] DOS: HOSPITAL COURSE: The patient is a 63 years old. The patient is known to Dr. Keith. The patient comes in with complaints of chest pain and near syncopal episode. Please refer H and P for details. He was found to be quite anemic, so the chest pain was most likely ischemia from low hemoglobin. The patient was admitted and was monitored. Rule out [place] protocol was done. Cardiology consultation was obtained. Troponins have come back negative. The patient was transferred 2 units packed red blood cell. Iron ferritin was low, iron infusion and iron p.o. supplements were started. Dr. Rivera was consulted. Hemoccults were negative. Endoscopy, colonoscopy was performed and showed esophageal moniliasis and diverticulosis. The patient's hemoglobin has improved, but the last labs from the , this morning, the labs ordered, I do not have the results yet. The patient is overall stable and is pretty anxious and has continued complaints of chest pain, which is relieved with tramadol. The patient is free to go home and live on his own, so he decided to go to his daughter's house. Arrangements are being made for discharge today. He does have end-stage COPD for which he is on oxygen and maximal treatment plan. He may require many admissions in the future. DISCHARGE MEDICATIONS: Daliresp 500 mcg daily, Carafate 1 gram q.i.d., Protonix 40 daily, breathing treatments with DuoNeb q6., iron 325 daily, Ceftin 250 twice daily for 5 days, prednisone 5 daily, tramadol 50. q6 p.r.n., doxepin 10 daily, Dulera 200 twice a day, vitamin D 2000 units daily, lisinopril 5 daily, Asmanex two puffs daily, Tylenol 1000 q6. p.r.n., and nitroglycerin p.r.n. 0.4 mg. His Incruse Ellipta, aspirin, Motrin, and albuterol p.r.n. has been discontinued. NANCY PALACIOS MD CM:GABBI [id number] NANCY PALACIOS MD 11/13/18 1128 interface
--- NOTE | ~2018-11-07 | PR ---
[place], [place] PROGRESS NOTE NAME[id number] UNIT #: [id number] ROOM: 402 DOCTOR: PALMIRA DUMONT MD BIRTHDATE: [birth year] DOS: 11/10/2018 SUBJECTIVE: The patient is feeling better. Chest pains off and on. OBJECTIVE: VITAL SIGNS: Blood pressure 124/72, heart rate 96 beats per minute, breathing 21 times per minute, temperature 98 degrees Fahrenheit. GENERAL APPEARANCE: The patient is alert and oriented x 3, in no visible distress. HEENT AND NECK: Exam within normal limits. CARDIOVASCULAR SYSTEM: Heart rate is regular in rate and rhythm. S1 and S2 normally audible. LUNGS: Clear to auscultation. ABDOMEN: Soft, nontender. No obvious organomegaly. Bowel sounds are present. EXTREMITIES: Without significant cyanosis or edema. IMPRESSION AND PLAN: 1. Pleuritic chest pains versus musculoskeletal, being treated with tramadol now. 2. Chronic iron deficiency anemia. Hemoccult stools negative. The patient apparently was going for endoscopy, but results are not available. Dr. Rivera is following. 3. Chest pains with negative cardiac workup. The patient evaluated by Dr. Lindo, the staffing assistant. PALMIRA DUMONT MD CM:PNTRANS [phone] PALMIRA DUMONT MD 11/10/18 1823 interface
--- NOTE | ~2018-11-07 | O ---
[place], [place] OPERATIVE NOTE NAME: NICOLE AGUILA UNIT #: [id number] ROOM: 402 DOCTOR: VISH DOUGHERTY MD BIRTHDATE: [birth year] DOS: 11/09/2018 GASTROENDOSCOPIC REPORT IDENTIFICATION: The patient has presented with chief complaint of anemia, undergoing investigation. PROCEDURE: Today's procedure part of investigation is panendoscopy and colonoscopy. PREMEDICATION: Propofol. SCOPE: Olympus forward-viewing gastroscope Q10 video. REPORT: After putting the patient in left lateral position and application of lubricant to the scope, the scope was introduced. Thereafter, under direct visualization, advanced through the length of esophagus without difficulty. Evidence of esophageal moniliasis was noticed. [place] for fungal study was done. A gastric pouch was entered. Evidence of gastritis noticed. Duodenal bulb, second and third part within normal limit. The patient extubated, tolerated the procedure well. IMPRESSION: Esophageal moniliasis, status post brush for fungal study, hiatal hernia, gastritis. PLAN AND DISCUSSION: We are going to treat for moniliasis with Diflucan therapy. On the other hand, we are going to proceed with colonoscopy. Thank you very much indeed. IDENTIFICATION: The patient has presented with a GI bleed, on ibuprofen and Mobic. Procedure: Today's procedure part of investigation is colonoscopy. PREMEDICATION: Propofol. SCOPE: Olympus forward-viewing colonoscope 10L video. REPORT: After putting the patient in left lateral position and application of lubricant to rectal pouch, scope was introduced. Thereafter, under direct visualization, advanced through the length of colon without difficulty. Retained stool up to cecum was noticed. Photographic series of the arriving of the scope was obtained. Scope was gradually withdrawn from ascending, transverse, descending colon. Diverticulosis seen. The patient extubated, tolerated the procedure well. IMPRESSION: Diverticulosis, retained stool. PLAN: Transfusion and observation, supportive management. The patient already [place], [place] OPERATIVE NOTE NAME: NICOLE AGUILA UNIT #: [id number] ROOM: 402 DOCTOR: VISH DOUGHERTY MD BIRTHDATE: [birth year] on Mobic and ibuprofen, recommending to remain chronically on PPI management and maybe he will benefit from a capsule endoscopy of the small bowel. This can be organized as outpatient. Thank you very much indeed. VISH DOUGHERTY MD CM:LGORIAORD:OPERATIVE NOTE [id number] VISH DOUGHERTY MD 11/13/18 1318 interface
[~2018-11-07 16:20] MED LIST changes: +ACETAMINOPHEN500 M4 PO; +LEVOFLOXACIN500 MG PO; +LISINOPRIL10 M1 PO; +LORAZEPAM1 MG PO; +MOBIC7.5 MG PO; +NEURONTIN100 MG PO; +NITROGLYCERIN0.4 MG SL; +PREDNISONE50 MG PO; +ZESTRIL,PRINIVIL5 MG PO
[2018-11-07 16:52] LABS: BASO % 0.5 % (0.0-1.0); EOS % 0.2 % (1.0-4.0); HEMATOCRIT 23.1 % (42.0-52.0); HEMOGLOBIN 6.9 g/dl (14.0-18.0); LYMPH # 0.9 10*3/uL (1.3-4.4); LYMPH % 15.4 % (27.0-41.0); MEAN CORPUSCULAR HGB 23.3 pg (27.0-31.0); MEAN CORPUSCULAR HGB CONC 29.9 g/dl (33.0-37.0); MEAN PLATELET VOLUME 9.7 fl (9.6-12.3); MONO # 0.2 10*3/uL (0.1-1.0); MONO % 4.3 % (3.0-9.0); NEUT # 4.4 10*3/uL (2.3-7.9); NEUT % 79.1 % (47.0-73.0); PLATELET COUNT AUTOMATED 549 10*3/uL (130-400); RED BLOOD COUNT 2.96 10*6/uL (4.50-5.90); RED CELL DISTRI WIDTH 17.8 % (0-14.5); WHITE BLOOD COUNT 5.6 10*3/uL (4.8-10.8)
--- NOTE | 2018-11-07 17:00 | NUR ---
PT W/O ACUTE DISTRESS NOTED TALKING IN FULL SENTENCES,NO SOB NOTED SAO2 @ 96-97% VIA 3L NASAL CANNULA,SAFETY PRECAUTIONS INTACT AND CALL LIGHT WITHIN REACH.
[2018-11-07 17:03] LABS: ACT PARTIAL THROMBO TIME 23.7 SECONDS (20.0-32.1)
[2018-11-07 17:09] LABS: ALKALINE PHOSPHATASE 71 U/L (45-117); BUN 7 mg/dl (7-24); CHLORIDE 101 mmol/L (98-107); CREATININE 0.78 mg/dL (0.70-1.30); POTASSIUM 4.2 mmol/L (3.5-5.1); SGOT/AST 20 IU/L (3-35); SGPT/ALT 27 U/L (12-78); SODIUM 137 mmol/L (136-145)
[2018-11-07 17:15] LABS: TROPONIN I < 0.015 ng/ml (<0.045)
--- NOTE | 2018-11-07 18:38 | NUR ---
A 63 YEAR OLD MALE, admitted to , under the services of NANCY Gusman MD with a diagnosis of CHEST PAIN. Chief complaint is SOB AND CHEST PAIN. Patient arrived via ambulance from ER. Monitor applied. Initial assessment completed. Vital signs taken and recorded. NANCY GUSMAN MD notified of admission to the unit. Orders received. See assessment for past medical history, medications and allergies. Patient and/or family oriented to unit. [facility] Clothing/patient valuable form completed. CARINA GANN
[2018-11-07] MEDS ORDERED: ASMANEX220 MC2 INH (19:12)
[2018-11-07] MEDS ORDERED: TYLENOL EXTRA500 MG PO (19:12)
[2018-11-07] MEDS ORDERED: Motrin,Rufen800 MG PO (19:13)
[2018-11-07] MEDS ORDERED: NITROSTAT0.4 MG SL (19:15)
--- NOTE | 2018-11-07 20:24 | NUR ---
ATTEMPTED TO CALL DR DOUGHERTY FOR CONSULT. NO ANSWER AT THIS TIME.
--- NOTE | 2018-11-07 20:43 | NUR ---
DR DOUGHERTY RETURNED PHONE CALL. STATED HE WANTS CALLED BACK WITH [facility] IN AM
--- NOTE | 2018-11-07 22:50 | NUR ---
CONSENT FOR BLOOD SIGNED, 1 UNIT PRBC STARTED AT THIS TIME.
--- NOTE | 2018-11-07 23:05 | NUR ---
NOTIFIED DR PALACIOS OF PATIENT REQUESTING SOMETHING TO HELP HIM SLEEP AND SOMETHING ELSE FOR PAIN. STATED HIS EARLIER TYLENOL HELPED A LITTLE BUT THE CHEST PAIN IS COMING BACK AGAIN. NEW ORDERS RECEIVED.
--- NOTE | 2018-11-07 23:50 | NUR ---
PATIENT MEDICATED WITH 1X DOSE AMBIEN AND PRN MORPHINE ORDERED FOR C/O INSOMNIA AND CHEST PAIN RATED 6/10
[2018-11-08] VITALS (10 sets, daily range): BP systolic 102–142; BP diastolic 57–90
--- NOTE | 2018-11-08 00:13 | NUR ---
ANSWERING SERVICE WAS NOTIFIED OF DR. RICHARDSON CONSULT. RESPONSE OF NOTIFICATION WAS OKAY I HAVE THE MESSAGE. RAUL VILLAFANA
--- NOTE | 2018-11-08 01:15 | NUR ---
1 UNIT PRBC COMPLETE. PATIENT TOLERATED WELL. NO VOICED COMPLAINTS AT THIS TIME. VSS, CALL LIGHT IN REACH. IVF RESTARTED @ 60/HR.
[2018-11-08 04:19] LABS: BASO # 0.1 10*3/uL (0.0-0.1); BASO % 1.1 % (0.0-1.0); EOS % 0.7 % (1.0-4.0); HEMATOCRIT 25.2 % (42.0-52.0); HEMOGLOBIN 7.6 g/dl (14.0-18.0); LYMPH # 1.9 10*3/uL (1.3-4.4); LYMPH % 34.7 % (27.0-41.0); MEAN CELL VOLUME 78.8 fl (80.0-94.0); MEAN CORPUSCULAR HGB 23.8 pg (27.0-31.0); MEAN CORPUSCULAR HGB CONC 30.2 g/dl (33.0-37.0); MEAN PLATELET VOLUME 10.1 fl (9.6-12.3); MONO % 17.4 % (3.0-9.0); NEUT # 2.5 10*3/uL (2.3-7.9); NEUT % 45.4 % (47.0-73.0); PLATELET COUNT AUTOMATED 515 10*3/uL (130-400); RED CELL DISTRI WIDTH 17.2 % (0-14.5); WHITE BLOOD COUNT 5.5 10*3/uL (4.8-10.8)
[2018-11-08 04:31] LABS: BUN 10 mg/dl (7-24); CHLORIDE 107 mmol/L (98-107); CREATININE 0.71 mg/dL (0.70-1.30); POTASSIUM 4.3 mmol/L (3.5-5.1); SODIUM 142 mmol/L (136-145)
[2018-11-08 04:34] LABS: CHOLESTEROL 128 mg/dL (<200); HDL CHOLESTEROL 54 mg/dl (40-60); LDL CHOLESTEROL 61 mg/dL (9-159); TRIGLYCERIDES 67 mg/dl (<150); VLDL CHOLESTEROL 13 mg/dL (6-40)
--- NOTE | 2018-11-08 06:16 | NUR ---
ATTEMPTED TO CALL DR DOUGHERTY. NO ANSWER AT THIS TIME.
--- NOTE | 2018-11-08 06:45 | NUR ---
DR DOUGHERTY NOTIFIED OF PATIENTS HGB 7.6. NEW ORDERS RECEIVED.
--- NOTE | 2018-11-08 08:45 | NUR ---
MEDICATED WITH PRN IV MORPHINE FOR C/O CHEST PAIN AND SHORTNESS OF BREATH.
--- NOTE | 2018-11-08 09:00 | NUR ---
Bead Forming Machine Set Up Operator in to talk to patient. Patient states lives at home with alone with his family checking in on him. There are no steps in the home. He has a wheelchair ramp. Physician: Dr. Delmer Keith Pharmacy: [facility]: has had [facility] in the past and would like to have them again Patient's level of ADLs: minimal assistance Patient has working utilities: yes DME: O2 @ 3L [place], portable O2 tanks, nebulizer, O2 suppler [facility], walker Follow-up physician's appointment after d/c: he prefers to make his own follow up appt after discharge Does patient want to access PORTAL?: no Discharge plan discussed with patient. He lives at home alone with his family checking in on him. He is independent in his ADLs and ambulates with a walker. Discussed home health care services and he states he would like to have [facility] as he has had them in the past or possibly a SNF if needed. He wants to talk to his daughter and he has multiple items at home that need to be taken care of. His home has been foreclosed on and the person that bought it is allowing him time to move. Discharge plan undecided at this time.
--- NOTE | 2018-11-08 10:19 | NUR ---
PRN IV MORPHINE EFFECTIVE, PER PATIENT.
--- NOTE | 2018-11-08 12:45 | NUR ---
PT. REFUSED AEROSOL TREATMENT AT THIS TIME.
--- NOTE | 2018-11-08 14:57 | NUR ---
PATIENT REPORTS HAVING BRIGHT RED BLOODY STOOL-MODERATE AMOUNT BUT MISSED THE HAT AND THIS WAS FLUSHED AWAY, PER PATIENT.
--- NOTE | 2018-11-08 16:44 | NUR ---
PRN IV MORPHINE EFFECTIVE, PER PATIENT.
--- NOTE | 2018-11-08 19:27 | NUR ---
SPOKE WITH DR. RICHARDSON TO CONFIRM THAT CONSULT INFO. WAS RECIEVED. PER DR. RICHARDSON, ADDRESSING THE PATIENT'S ANEMIA IS THE PRIORITY AT THIS TIME.
--- NOTE | 2018-11-08 23:40 | NUR ---
PATIENT REQUESTING PAIN MEDICATION FOR UPPER CHEST PAIN RATED 7/10 ON 0/10 SCALE. MORPHINE ADMINISTERED PRESCRIBED. WILL MONITOR FOR EFFECTIVENESS.
[2018-11-09] VITALS (8 sets, daily range): BP systolic 77–162; BP diastolic 44–82
--- NOTE | 2018-11-09 00:40 | NUR ---
PATIENT RESTING WITH EYES CLOSED AT THIS TIME. RESPIRATIONS EASY AND UNLABORED ON 3LNC. BED LOCKED IN LOWEST POSITION AND CALL LIGHT WITHIN REACH. WILL MONITOR.
[2018-11-09 07:36] LABS: HEMATOCRIT 30.3 % (42.0-52.0); HEMOGLOBIN 9.3 g/dl (14.0-18.0); MEAN CELL VOLUME 80.6 fl (80.0-94.0); MEAN CORPUSCULAR HGB 24.7 pg (27.0-31.0); MEAN CORPUSCULAR HGB CONC 30.7 g/dl (33.0-37.0); MEAN PLATELET VOLUME 10.3 fl (9.6-12.3); PLATELET COUNT AUTOMATED 525 10*3/uL (130-400); RED BLOOD COUNT 3.76 10*6/uL (4.50-5.90); RED CELL DISTRI WIDTH 17.8 % (0-14.5); WHITE BLOOD COUNT 8.8 10*3/uL (4.8-10.8)
[2018-11-09 08:00] LABS: BASOPHILS 3 % (0-1); PLATELET SUFFICIENCY HIGH (NORMAL); POLYCHROMASIA SLIGHT; TOTAL CELLS COUNTED 100 #CELLS
[2018-11-09 08:06] LABS: BUN 6 mg/dl (7-24); CHLORIDE 106 mmol/L (98-107); CREATININE 0.61 mg/dL (0.70-1.30); POTASSIUM 3.9 mmol/L (3.5-5.1); SODIUM 141 mmol/L (136-145)
--- NOTE | 2018-11-09 08:10 | NUR ---
MEDICATED WITH ULTRAM PER PRN ORDER FOR COMPLAINTS OF CHEST PAIN, INSTRUCTED BY DR PALACIOS TO ENCOURAGE USE OF ULTRAM. WILL MONITOR FOR EFFECTIVENESS.
--- NOTE | 2018-11-09 08:43 | NUR ---
DR DOUGHERTY MADE AWARE OF CBC RESULTS.
--- NOTE | 2018-11-09 09:00 | NUR ---
Getter Operator in to see patient. He is sitting up on the edge of his bed without distress noted. He is upset about being NPO for testing today. No new needs or request for home needs. He denies any home needs at this time. When medically stable he will be discharged to home.
--- NOTE | 2018-11-09 10:50 | NUR ---
PT STATES EARLIER ULTRAM WAS NOT EFFECTIVE, STILL RATES PAIN 7/10. MEDICATED WITH MORPHINE PER PRN ORDER. WILL MONITOR FOR EFFECTIVENESS.
--- NOTE | 2018-11-09 14:26 | NUR ---
PT OFF FLOOR FOR EGD/COLO AT THIS TIME.
--- NOTE | 2018-11-09 18:00 | NUR ---
MEDICATED WITH ULTRAM FOR COMPLAINTS OF CHEST PAIN. WILL MONITOR FOR EFFECTIVENES.
--- NOTE | 2018-11-09 19:00 | NUR ---
PATIENT MEDICATED SLOWLY WITH 2 MG IV MORPHINE PER PRN ORDER FOR C/O PAIN AND SHORTNESS OF BREATH. SEE EMAR. REINFORCED USE OF CALL LIGHT.
--- NOTE | 2018-11-09 21:00 | NUR ---
PATIENT RESTING QUIETLY. MEDICATION EFFECTIVE.
[2018-11-10] VITALS: BP 120/68; BP 139/80
--- NOTE | 2018-11-10 03:05 | NUR ---
24 HR chart check completed.
--- NOTE | 2018-11-10 03:25 | NUR ---
PATIENT MEDICATED SLOWLY WITH 2 MG IV MORPHINE PER PRN ORDER FOR C/O PAIN . RATED PAIN A 7-8/10 WITH 10 BEING THE WORST. SEE EMAR.
[2018-11-10 08:28] VITALS: BP 128/80
[2018-11-10 11:35] VITALS: BP 124/72
--- NOTE | 2018-11-10 12:30 | NUR ---
MORPHINE GIVEN FOR C/O CHEST PAIN. RATES 7/10 ON PAIN SCALE. WILL MONITOR.
--- NOTE | 2018-11-10 13:30 | NUR ---
MORPHINE EFFECTIVE PER PT.
[2018-11-10 15:41] VITALS: BP 128/70
--- NOTE | 2018-11-10 17:15 | NUR ---
ULTRAM GIVEN FOR C/O HEADACHE. WILL MONITOR.
--- NOTE | 2018-11-10 18:25 | NUR ---
ULTRAM EFFECTIVE PER PT.
[2018-11-10 20:00] VITALS: BP 100/60
--- NOTE | 2018-11-10 22:37 | NUR ---
morphine given for c/o chest pain. rates 7/10 on pain scale. will monitor.
[2018-11-11] VITALS: BP 126/80
--- NOTE | 2018-11-11 00:28 | NUR ---
PATIENT MEDICATED WITH PRN ULTRAM ORDERED FOR C/O CHEST PAIN RATED 6/10
[2018-11-11 12:00] VITALS: BP 98/62
--- NOTE | 2018-11-11 12:45 | NUR ---
PT RECIEVED PRN TYLENOL FOR A HEADACHE. WILL MONITOR FOR EFFECTIVENESS.
--- NOTE | 2018-11-11 14:24 | NUR ---
PT REQUESTED MORPHINE FOR CHEST PAIN RATED A 7. WILL MONITOR FOR EFFECTIVENESS.
[2018-11-11 16:00] VITALS: BP 98/67
[2018-11-11 20:00] VITALS: BP 101/64
[2018-11-12] VITALS: BP 98/54
--- NOTE | 2018-11-12 06:30 | NUR ---
pt medicated with morphine 2mg iv for c/o chest pain rated 7/10 on pain scale. pt was sleeping when i entered room with no acute distress noted.
[2018-11-12 08:00] VITALS: BP 92/46
--- NOTE | 2018-11-12 09:25 | NUR ---
HELD LISINOPRIL THIS MORNING FOR BLOOD PRESSURE 92/46 MANUALLY. MEDICATED AT THIS TIME WITH PRN PO ULTRAM FOR C/O CHEST PAIN AND HEADACHE.
--- NOTE | 2018-11-12 10:00 | NUR ---
ULTRAM SOMEWHAT EFFECTIVE, PER PATIENT.
[2018-11-12 12:03] VITALS: BP 86/62
--- NOTE | 2018-11-12 13:54 | NUR ---
PATIENT C/O REDNESS/SWELLING/PAIN TO LEFT FOREARM; PER PATIENT THIS WAS WHERE AN IV SITE INFILTRATED. PATIENT WAS RECEIVING FERRLICIT IV AT THE TIME. OFFERED ICE, PATIENT DECLINED.
--- NOTE | 2018-11-12 14:39 | NUR ---
MEDICATED WITH PRN IV MORPHINE FOR CHEST PAIN.
--- NOTE | 2018-11-12 15:03 | NUR ---
PRN IV MORPHINE EFFECTIVE, PER PATIENT.
[2018-11-12 16:00] VITALS: BP 118/70
--- NOTE | 2018-11-12 19:59 | NUR ---
24 HOUR CHART CHECK COMPLETE.
[2018-11-12 20:00] VITALS: BP 105/58; BP 110/60
--- NOTE | 2018-11-12 22:51 | NUR ---
ADMINISTERED PRN MORPHINE PRESCRIBED FOR PT COMPLAINT OF CHEST PAIN. WILL CONTINUE TO MONITOR THE PT AND REASSESS IN AN HOUR.
--- NOTE | 2018-11-12 23:45 | NUR ---
MORPHINE APPEARS TO BE EFFECTIVE. PT RESTING WITH NO APPARENT SIGNS OF DISCOMFORT OR DISTRESS.
[2018-11-13 01:36] VITALS: BP 102/72
--- NOTE | 2018-11-13 07:24 | NUR ---
PRN MORPHINE ADMINISTERED PRESCRIBED. WILL CONTINUE TO MONITOR THE PT AND REASSESS IN AN HOUR.
[2018-11-13 08:00] VITALS: BP 115/73
[2018-11-13] MEDS ORDERED: Carafate1 GM PO (08:26)
[2018-11-13] MEDS ORDERED: PROTONIX40 MG PO (08:26)
[2018-11-13] MEDS ORDERED: DALI500T PO (08:26)
[2018-11-13] MEDS ORDERED: CEFUROXIME AXE250 MG PO (08:29)
[2018-11-13] MEDS ORDERED: FEROSUL325 MG PO (08:29)
[2018-11-13] MEDS ORDERED: PREDNISONE5 MG PO (08:29)
[2018-11-13] MEDS ORDERED: Ipratropium Brom3 ML NEB (08:29)
[2018-11-13] MEDS ORDERED: TRAMADOL HCL50 MG PO (08:30)
[2018-11-13 09:46] LABS: BASO % 0.6 % (0.0-1.0); EOS # 0.1 10*3/uL (0.0-0.4); EOS % 1.3 % (1.0-4.0); HEMATOCRIT 33.6 % (42.0-52.0); HEMOGLOBIN 10.2 g/dl (14.0-18.0); LYMPH # 0.9 10*3/uL (1.3-4.4); LYMPH % 13.1 % (27.0-41.0); MEAN CELL VOLUME 81.8 fl (80.0-94.0); MEAN CORPUSCULAR HGB 24.8 pg (27.0-31.0); MEAN CORPUSCULAR HGB CONC 30.4 g/dl (33.0-37.0); MEAN PLATELET VOLUME 9.8 fl (9.6-12.3); MONO # 1.3 10*3/uL (0.1-1.0); MONO % 19.7 % (3.0-9.0); NEUT # 4.4 10*3/uL (2.3-7.9); PLATELET COUNT AUTOMATED 517 10*3/uL (130-400); RED BLOOD COUNT 4.11 10*6/uL (4.50-5.90); RED CELL DISTRI WIDTH 19.8 % (0-14.5); WHITE BLOOD COUNT 6.8 10*3/uL (4.8-10.8)
[2018-11-13 10:14] LABS: BUN 8 mg/dl (7-24); CHLORIDE 100 mmol/L (98-107); CREATININE 0.72 mg/dL (0.70-1.30); POTASSIUM 4.5 mmol/L (3.5-5.1); SODIUM 138 mmol/L (136-145)
--- NOTE | 2018-11-13 11:56 | NUR ---
PT REQUESTED AND WAS MEDICATED WITH TYLENOL FOR C/O HEADACHE. WILL MONITOR
[2018-11-13 12:00] VITALS: BP 96/76
--- NOTE | 2018-11-13 12:11 | NUR ---
PT REFUSED SATX STATES HE IS GOING TO BE DISCHARGED PT IN NO DISTRESS
--- NOTE | 2018-11-13 13:00 | NUR ---
MEDICATION EFFECTIVE PER PT. CALL LIGHT IN RAECH. WILL MONITOR
--- NOTE | 2018-11-13 13:37 | NUR ---
Discharge instructions reviewed with patient/family. Patient receptive and verbalizes understanding. Follow-up care arranged. Written instructions given to patient/family. JESSICA CASTELLANO
[2018-12-13] MEDS ORDERED: ASPIRIN ADULT L81 M1 PO (18:52)
[2018-12-13] MEDS ORDERED: INCRUSE ELLI62.5 MCG INH (18:58)
[2018-12-18] MEDS ORDERED: REMERON30 M1 PO (14:02)
[2018-12-18] MEDS ORDERED: BUSPAR15 MG PO (14:02)
[2018-12-18] MEDS ORDERED: DILTIAZEM HCL60 MG PO (14:04)
== END 2018-11-13 13:37 | disposition home or self-care (01) | DRG 811 ==
LOC: ED 16:20 → EDHOLD 17:44 → 4E 17:44
PROVIDERS: Emergency Medicine; Internal Medicine Gastroenterology; ADMIT Internal Medicine
PROC: 30233N1 Transfusion of Nonautologous Red Blood Cells into Peripheral Vein, Percutaneous Approach (ICD-10-PCS; 2018-11-07)
PROC: 0DD58ZX Extraction of Esophagus, Via Natural or Artificial Opening Endoscopic, Diagnostic (ICD-10-PCS; principal; 2018-11-09)
PROC: 0DJD8ZZ Inspection of Lower Intestinal Tract, Via Natural or Artificial Opening Endoscopic (ICD-10-PCS; 2018-11-09)
DX: D50.9 Iron deficiency anemia, unspecified (principal); K29.51 Unspecified chronic gastritis with bleeding; K57.33 Diverticulitis of large intestine without perforation or abscess with bleeding; J96.10 Chronic respiratory failure, unspecified whether with hypoxia or hypercapnia; B37.81 Candidal esophagitis; I10 Essential (primary) hypertension; K44.9 Diaphragmatic hernia without obstruction or gangrene; F17.210 Nicotine dependence, cigarettes, uncomplicated; F41.1 Generalized anxiety disorder; R07.89 Other chest pain; R62.7 Adult failure to thrive; J43.2 Centrilobular emphysema; F41.9 Anxiety disorder, unspecified; E03.9 Hypothyroidism, unspecified; G89.29 Other chronic pain; J84.10 Pulmonary fibrosis, unspecified; Z79.82 Long term (current) use of aspirin; Z79.899 Other long term (current) drug therapy; Z80.41 Family history of malignant neoplasm of ovary; Z86.010 Personal history of colon polyps; Z82.49 Family history of ischemic heart disease and other diseases of the circulatory system

== ENCOUNTER 2018-11-27 19:27 | Emergency (ER) | payer OTHER ==
[~2018-11-27] VITALS: Wt 59.0 kg
--- NOTE | ~2018-11-27 | EKG ---
[place], [place] ELECTROCARDIOGRAM REPORT NAME: NICOLE AGUILA UNIT #: [id number] ROOM: DOCTOR: POLO DRAFT REPORT BIRTHDATE: [birth year] [facility] Test Date: 2018-11-27 Test Time: 22:33:52 Pat Name: NICOLE AGUILA Department: Room: Gender: M Wafer Fab Technician: SS RESP : 1955 Requested By: YEYO FUENTES Order Number: [id number] Reading MD: Andre Kan MD Measurements Intervals [place] Rate: 88 P: 78 MN: 197 QRS: -74 QRSD: 128 T: 72 QT: 397 QTc: 481 Interpretive Statements Sinus rhythm RBBB and LAFB ST elevation, consider inferior injury Baseline wander in lead(s) II,III,aVL,aVF Compared to ECG 11/07/2018 22:01:39 Left anterior fascicular block now present Left posterior fascicular block no longer present ST (T wave) deviation still present Myocardial infarct finding still present Electronically Signed On 11-28-2018 11:58:55 PDT by Andre Kan MD CM:EKGRPT:ELECTROCARDIOGRAM REPORT [id number] YEYO SAGASTUME DRAFT REPORT YEYO FUENTES DO
--- NOTE | ~2018-11-27 | EKG ---
[place], [place] ELECTROCARDIOGRAM REPORT NAME: NICOLE AGUILA UNIT #: [id number] ROOM: DOCTOR: EPIPHANY DRAFT REPORT BIRTHDATE: [birth year] [facility] Test Date: 2018-11-27 Test Time: 19:28:02 Pat Name: NICOLE AGUILA Department: Room: Gender: M Orthoptist: : 1955 Requested By: YEYO FUENTES Order Number: [id number] Reading MD: Andre Kan MD Measurements Intervals [place] Rate: 97 P: 83 KS: 190 QRS: -91 QRSD: 127 T: 65 QT: 361 QTc: 459 Interpretive Statements Sinus rhythm Probable left atrial enlargement RBBB and LAFB Compared to ECG 11/07/2018 22:01:39 Left anterior fascicular block now present Left posterior fascicular block no longer present Myocardial infarct finding still present ST (T wave) deviation still present Electronically Signed On 11-28-2018 11:58:24 PDT by Andre Kan MD CM:EKGRPT:ELECTROCARDIOGRAM REPORT [id number] 1158 YEYO SAGASTUME DRAFT REPORT YEYO FUENTES DO
[~2018-11-27 19:27] MED LIST changes: +ASMANEX220 MC2 INH; +CEFUROXIME AXE250 MG PO; +Carafate1 GM PO; +DALI500T PO; +FEROSUL325 MG PO; +Ipratropium Brom3 ML NEB; +Motrin,Rufen800 MG PO; +NITROSTAT0.4 MG SL; +PREDNISONE5 MG PO; +TRAMADOL HCL50 MG PO; +TYLENOL EXTRA500 MG PO
[2018-11-27 19:48] LABS: BASO % 0.6 % (0.0-1.0); EOS % 0.4 % (1.0-4.0); HEMOGLOBIN 9.7 g/dl (14.0-18.0); LYMPH # 1.4 10*3/uL (1.3-4.4); LYMPH % 27.6 % (27.0-41.0); MEAN CELL VOLUME 83.1 fl (80.0-94.0); MEAN CORPUSCULAR HGB CONC 31.3 g/dl (33.0-37.0); MEAN PLATELET VOLUME 9.7 fl (9.6-12.3); MONO # 0.6 10*3/uL (0.1-1.0); MONO % 11.1 % (3.0-9.0); NEUT % 59.9 % (47.0-73.0); PLATELET COUNT AUTOMATED 575 10*3/uL (130-400); RED BLOOD COUNT 3.73 10*6/uL (4.50-5.90); RED CELL DISTRI WIDTH 19.8 % (0-14.5)
[2018-11-27 20:05] LABS: ACT PARTIAL THROMBO TIME 27.9 SECONDS (20.0-32.1)
[2018-11-27 20:09] LABS: ALBUMIN 3.3 gm/dl (3.1-4.5); ALKALINE PHOSPHATASE 77 U/L (45-117); BUN 6 mg/dl (7-24); CHLORIDE 97 mmol/L (98-107); SGOT/AST 20 IU/L (3-35); SGPT/ALT 26 U/L (12-78); SODIUM 131 mmol/L (136-145); TOTAL PROTEIN 7.4 gm/dL (6.4-8.2)
[2018-11-27 20:19] LABS: TROPONIN I < 0.015 ng/ml (<0.045)
[2018-11-27] MEDS ORDERED: AUGMENTIN 875-875 MG PO (22:43)
[2018-12-13] MEDS ORDERED: ASPIRIN ADULT L81 M1 PO (18:52)
[2018-12-13] MEDS ORDERED: INCRUSE ELLI62.5 MCG INH (18:58)
[2018-12-18] MEDS ORDERED: BUSPAR15 MG PO (14:02)
[2018-12-18] MEDS ORDERED: REMERON30 M1 PO (14:02)
[2018-12-18] MEDS ORDERED: DILTIAZEM HCL60 MG PO (14:04)
== END 2018-11-27 22:45 | disposition home or self-care (01) ==
LOC: ED 19:27
PROVIDERS: Student in an Organized Health Care Education/Training Program
DX: J18.1 Lobar pneumonia, unspecified organism (principal); R91.8 Other nonspecific abnormal finding of lung field; G89.29 Other chronic pain; J44.9 Chronic obstructive pulmonary disease, unspecified; I10 Essential (primary) hypertension; E03.9 Hypothyroidism, unspecified; Z79.2 Long term (current) use of antibiotics; Z79.899 Other long term (current) drug therapy; Z87.891 Personal history of nicotine dependence

== ENCOUNTER 2018-12-10 18:10 | Emergency (ER) | payer OTHER ==
[~2018-12-10] VITALS: Ht 175.2 cm; Wt 81.6 kg
--- NOTE | ~2018-12-10 | EKG ---
[place], [place] ELECTROCARDIOGRAM REPORT NAME: NICOLE AGUILA UNIT #: [id number] ROOM: DOCTOR: EPIPHANY DRAFT REPORT BIRTHDATE: [birth year] [facility] Test Date: 2018-12-10 Test Time: 18:16:39 Pat Name: NICOLE AGUILA Department: Room: Gender: Index Clerk: Kaela Blackburn : 1955 Requested By: MARGIE MOREL Order Number: [id number] Reading MD: Alma Rosa Gaston MD Measurements Intervals [place] Rate: 91 P: 81 HI: 179 QRS: -85 QRSD: 131 T: 64 QT: 371 QTc: 457 Interpretive Statements Sinus rhythm Probable left atrial enlargement RBBB and LAFB Baseline wander in lead(s) V5 Compared to ECG 11/27/2018 22:33:52 No significant changes Electronically Signed On 12-12-2018 12:09:47 PDT by Alma Rosa Gaston MD CM:EKGRPT:ELECTROCARDIOGRAM REPORT [id number] MARGIE CUELLAR DRAFT REPORT MARGIE MOREL M.D.
--- NOTE | ~2018-12-10 | EKG ---
[place], [place] ELECTROCARDIOGRAM REPORT NAME: NICOLE AGUILA UNIT #: [id number] ROOM: DOCTOR: EPIPHANY DRAFT REPORT BIRTHDATE: [birth year] [facility] Test Date: 2018-12-10 Test Time: 21:19:06 Pat Name: NICOLE AGUILA Department: Room: Gender: M Mine Development Engineer: Kaela Blackburn : 1955 Requested By: MARGIE MOREL Order Number: [id number] Reading MD: Alma Rosa Gaston MD Measurements Intervals [place] Rate: 79 P: -30 RI: 178 QRS: 91 QRSD: 129 T: -3 QT: 405 QTc: 465 Interpretive Statements Sinus rhythm Probable left atrial enlargement RBBB and LPFB Inferior infarct, age indeterminate Lateral leads are also involved Compared to ECG 11/27/2018 22:33:52 Left posterior fascicular block now present Left anterior fascicular block no longer present ST (T wave) deviation no longer present Myocardial infarct finding still present Electronically Signed On 12-12-2018 12:10:07 PDT by Alma Rosa Gaston MD CM:EKGRPT:ELECTROCARDIOGRAM REPORT 18 1210 MARGIE CUELLAR DRAFT REPORT MARGIE MOREL M.D.
[~2018-12-10 18:10] MED LIST changes: +AUGMENTIN 875-875 MG PO
[2018-12-10 18:28] LABS: BASO % 0.9 % (0.0-1.0); EOS % 0.4 % (1.0-4.0); HEMATOCRIT 31.2 % (42.0-52.0); HEMOGLOBIN 9.6 g/dl (14.0-18.0); LYMPH # 1.4 10*3/uL (1.3-4.4); LYMPH % 31.7 % (27.0-41.0); MEAN CORPUSCULAR HGB 25.5 pg (27.0-31.0); MEAN CORPUSCULAR HGB CONC 30.8 g/dl (33.0-37.0); MEAN PLATELET VOLUME 10.1 fl (9.6-12.3); MONO # 0.8 10*3/uL (0.1-1.0); MONO % 17.1 % (3.0-9.0); NEUT # 2.2 10*3/uL (2.3-7.9); NEUT % 49.5 % (47.0-73.0); PLATELET COUNT AUTOMATED 350 10*3/uL (130-400); RED BLOOD COUNT 3.76 10*6/uL (4.50-5.90); RED CELL DISTRI WIDTH 18.8 % (0-14.5); WHITE BLOOD COUNT 4.5 10*3/uL (4.8-10.8)
[2018-12-10 18:40] LABS: ACT PARTIAL THROMBO TIME 26.6 SECONDS (20.0-32.1)
[2018-12-10 18:47] LABS: ALBUMIN 3.2 gm/dl (3.1-4.5); ALKALINE PHOSPHATASE 71 U/L (45-117); BUN 8 mg/dl (7-24); CHLORIDE 99 mmol/L (98-107); POTASSIUM 3.9 mmol/L (3.5-5.1); SGOT/AST 17 IU/L (3-35); SGPT/ALT 24 U/L (12-78); SODIUM 135 mmol/L (136-145); TOTAL PROTEIN 7.5 gm/dL (6.4-8.2)
[2018-12-10 18:49] LABS: TROPONIN I < 0.015 ng/ml (<0.045)
[2018-12-13] MEDS ORDERED: ASPIRIN ADULT L81 M1 PO (18:52)
[2018-12-13] MEDS ORDERED: INCRUSE ELLI62.5 MCG INH (18:58)
[2018-12-18] MEDS ORDERED: BUSPAR15 MG PO (14:02)
[2018-12-18] MEDS ORDERED: REMERON30 M1 PO (14:02)
[2018-12-18] MEDS ORDERED: DILTIAZEM HCL60 MG PO (14:04)
== END 2018-12-10 22:05 | disposition home or self-care (01) ==
LOC: ED 18:10
PROVIDERS: Emergency Medicine
DX: M94.0 Chondrocostal junction syndrome [Tietze] (principal); R07.9 Chest pain, unspecified; R06.02 Shortness of breath; R00.2 Palpitations; J44.9 Chronic obstructive pulmonary disease, unspecified; I10 Essential (primary) hypertension; E03.9 Hypothyroidism, unspecified; Z79.899 Other long term (current) drug therapy; Z87.891 Personal history of nicotine dependence

== ENCOUNTER 2019-05-11 23:35 | Emergency (ER) | payer OTHER ==
[~2019-05-11] VITALS: Wt 74.8 kg
[~2019-05-11 23:35] MED LIST changes: +BUSPAR15 MG PO; +DILTIAZEM HCL60 MG PO; +REMERON30 M1 PO
[2019-05-12] LABS: BASO % 0.5 % (0.0-1.0); EOS # 0.1 10*3/uL (0.0-0.4); EOS % 1.2 % (1.0-4.0); HEMATOCRIT 32.4 % (42.0-52.0); HEMOGLOBIN 10.4 g/dl (14.0-18.0); LYMPH # 0.8 10*3/uL (1.3-4.4); LYMPH % 17.6 % (27.0-41.0); MEAN CELL VOLUME 85.9 fl (80.0-94.0); MEAN CORPUSCULAR HGB 27.6 pg (27.0-31.0); MEAN CORPUSCULAR HGB CONC 32.1 g/dl (33.0-37.0); MEAN PLATELET VOLUME 9.8 fl (9.6-12.3); MONO # 0.7 10*3/uL (0.1-1.0); MONO % 17.1 % (3.0-9.0); NEUT # 2.7 10*3/uL (2.3-7.9); NEUT % 63.1 % (47.0-73.0); PLATELET COUNT AUTOMATED 394 10*3/uL (130-400); RED BLOOD COUNT 3.77 10*6/uL (4.50-5.90); RED CELL DISTRI WIDTH 13.9 % (0-14.5); WHITE BLOOD COUNT 4.3 10*3/uL (4.8-10.8)
[2019-05-12 00:10] LABS: ACT PARTIAL THROMBO TIME 30.8 SECONDS (20.0-32.1); INTERNATIONAL NORM RATIO 1.1 (2.0-3.5)
[2019-05-12 00:16] LABS: ALBUMIN 3.5 gm/dl (3.1-4.5); ALKALINE PHOSPHATASE 76 U/L (45-117); BUN 13 mg/dl (7-24); CHLORIDE 99 mmol/L (98-107); CREATININE 0.83 mg/dL (0.70-1.30); POTASSIUM 3.3 mmol/L (3.5-5.1); SGOT/AST 18 IU/L (3-35); SGPT/ALT 34 U/L (12-78); SODIUM 136 mmol/L (136-145); TOTAL PROTEIN 7.8 gm/dL (6.4-8.2)
[2019-05-12 00:17] LABS: TROPONIN I < 0.015 ng/ml (<0.045)
== END 2019-05-12 06:47 | disposition other institution (70) ==
LOC: ED 23:35
PROVIDERS: Emergency Medicine Emergency Medical Services
DX: G89.29 Other chronic pain (principal); R07.89 Other chest pain; R11.2 Nausea with vomiting, unspecified; R06.02 Shortness of breath; J44.9 Chronic obstructive pulmonary disease, unspecified; I10 Essential (primary) hypertension; F17.210 Nicotine dependence, cigarettes, uncomplicated; Z79.899 Other long term (current) drug therapy; Z79.82 Long term (current) use of aspirin

== ENCOUNTER → 2019-07-26 | Outpatient (CLI) | payer OTHER ==
[~2019-07-26] MED LIST changes: +ATIVAN0.5 MG PO; +BREO ELLIPTA 21 EACH INH; +OMEPRAZOLE40 MG PO; +PROPRANOLOL HY120 MG PO; +TRAMADOL HYDRO100 MG PO; +VITAMIN D34000 UNIT PO
== END | disposition home or self-care (01) ==
LOC: CT 14:00
DX: R91.1 Solitary pulmonary nodule (principal); F17.200 Nicotine dependence, unspecified, uncomplicated; J43.8 Other emphysema

== ENCOUNTER 2019-07-29 14:33 | Inpatient (IN) | payer OTHER ==
[~2019-07-29] VITALS: Ht 170.2 cm; Wt 62.6 kg
[~2019-07-29 14:33] MED LIST changes: -ATIVAN0.5 MG PO; -BREO ELLIPTA 21 EACH INH; -OMEPRAZOLE40 MG PO; -PROPRANOLOL HY120 MG PO; -TRAMADOL HYDRO100 MG PO; -VITAMIN D34000 UNIT PO
[2019-07-29 14:56] VITALS: BP 126/93
[2019-07-29 15:00] LABS: BASO % 0.6 % (0.0-1.0); EOS % 0.6 % (1.0-4.0); HEMATOCRIT 39.3 % (42.0-52.0); HEMOGLOBIN 12.7 g/dl (14.0-18.0); LYMPH # 0.8 10*3/uL (1.3-4.4); LYMPH % 22.5 % (27.0-41.0); MEAN CELL VOLUME 84.7 fl (80.0-94.0); MEAN CORPUSCULAR HGB 27.4 pg (27.0-31.0); MEAN CORPUSCULAR HGB CONC 32.3 g/dl (33.0-37.0); MEAN PLATELET VOLUME 9.7 fl (9.6-12.3); MONO # 0.4 10*3/uL (0.1-1.0); MONO % 11.2 % (3.0-9.0); NEUT # 2.3 10*3/uL (2.3-7.9); NEUT % 64.8 % (47.0-73.0); PLATELET COUNT AUTOMATED 426 10*3/uL (130-400); RED BLOOD COUNT 4.64 10*6/uL (4.50-5.90); RED CELL DISTRI WIDTH 14.1 % (0-14.5); WHITE BLOOD COUNT 3.5 10*3/uL (4.8-10.8)
[2019-07-29 15:10] LABS: ACT PARTIAL THROMBO TIME 29.3 SECONDS (20.0-32.1); INTERNATIONAL NORM RATIO 1.1 (2.0-3.5)
[2019-07-29 15:15] LABS: ALBUMIN 3.9 gm/dl (3.1-4.5); ALKALINE PHOSPHATASE 88 U/L (45-117); BUN 7 mg/dl (7-24); CHLORIDE 101 mmol/L (98-107); CREATININE 0.65 mg/dL (0.70-1.30); POTASSIUM 4.2 mmol/L (3.5-5.1); SGOT/AST 16 IU/L (3-35); SGPT/ALT 26 U/L (12-78); SODIUM 136 mmol/L (136-145); TOTAL PROTEIN 8.2 gm/dL (6.4-8.2)
[2019-07-29 15:18] LABS: TROPONIN I < 0.015 ng/ml (<0.045)
[2019-07-29 18:03] VITALS: BP 135/97
--- NOTE | 2019-07-29 19:00 | NUR ---
A 63, admitted to , under the services of NANCY Gusman MD with a diagnosis of COPD EXACERBATION. Chief complaint is SOB. Patient arrived via bed from ER. Monitor applied. Initial assessment completed. Vital signs taken and recorded. NANCY GUSMAN MD notified of admission to the unit. Orders received. See assessment for past medical history, medications and allergies. Patient and/or family oriented to unit. [facility] EDU visitation policy reviewed. Clothing/patient valuable form completed. BECKY DURON
[2019-07-29] MEDS ORDERED: BREO ELLIPTA 21 EACH INH (19:48)
[2019-07-29] MEDS ORDERED: ATIVAN0.5 MG PO (19:49)
[2019-07-29 20:00] VITALS: BP 142/89
[2019-07-30] VITALS: BP 140/74
--- NOTE | 2019-07-30 | NUR ---
PT RETING IN BED AWAKE. RESP DYSPNEIC AT REST. NO ACUTE DISTRESS NOTED. IV PATENT AND IVF'S INFUSING ORDERED WITHIOUT DIFFICULTY.
--- NOTE | 2019-07-30 00:15 | NUR ---
MEDICATED WITH XANAX PER PRN ORDER FOR C/O ANXIETY.
[2019-07-30 08:00] VITALS: BP 110/54
[2019-07-30 08:00] LABS: BASO % 0.3 % (0.0-1.0); HEMOGLOBIN 11.5 g/dl (14.0-18.0); LYMPH # 0.4 10*3/uL (1.3-4.4); LYMPH % 11.5 % (27.0-41.0); MEAN CELL VOLUME 85.1 fl (80.0-94.0); MEAN CORPUSCULAR HGB 27.2 pg (27.0-31.0); MEAN CORPUSCULAR HGB CONC 31.9 g/dl (33.0-37.0); MEAN PLATELET VOLUME 10.3 fl (9.6-12.3); MONO # 0.4 10*3/uL (0.1-1.0); MONO % 9.1 % (3.0-9.0); NEUT % 78.8 % (47.0-73.0); PLATELET COUNT AUTOMATED 430 10*3/uL (130-400); RED BLOOD COUNT 4.23 10*6/uL (4.50-5.90); RED CELL DISTRI WIDTH 14.2 % (0-14.5); WHITE BLOOD COUNT 3.8 10*3/uL (4.8-10.8)
--- NOTE | 2019-07-30 08:13 | NUR ---
Nursing screen received and chart reviewed. Patient admitted for flu-like symptoms. If patient has a decline in ADLs, transfers, or functional mobility, please send OT orders. Thank you. Shira Peter, OTR/L
[2019-07-30 08:20] LABS: BUN 16 mg/dl (7-24); CHLORIDE 107 mmol/L (98-107); CREATININE 0.78 mg/dL (0.70-1.30); POTASSIUM 3.9 mmol/L (3.5-5.1); SODIUM 141 mmol/L (136-145)
--- NOTE | 2019-07-30 08:51 | NUR ---
PATIENT MEDICATED WITH TORADOL PER PRN ORDER FOR C/O LOWER BACK PAIN. RATE 9/10 ON PAIN SCALE. WILL CONTINUE TO MONITOR.
--- NOTE | 2019-07-30 09:00 | NUR ---
Retoucher Photoengraving in to talk to patient. Patient states he lives in [facility] now. He moved in there 7 days ago from [facility]. There are no steps in the home. There is an elevator. Physician: Dr. Delmer Keith Pharmacy: [facility] Home health services: currently has OV and would like to resume those services upon discharge Patient's level of ADLs: minimal assistance Patient has working utilities: yes DME: walker, O2 @ 3L [place], portable O2 tanks, nebulizer, O2 supplier unknown Follow-up physician's appointment after d/c: he prefers to make his own follow up appt after discharge Does patient want to access PORTAL?: no Discharge plan discussed with patient. He is very [place]. He lives alone in [address]. He is independent in his ADLs and ambulates with a walker. Discussed home health care services and he currently has [facility] and would like to resume those services upon discharge. He states his daughter will provide transportation on discharge. HAI ARMANDO
[2019-07-30 12:00] VITALS: BP 117/53
--- NOTE | 2019-07-30 14:58 | NUR ---
PHYSICAL THERAPY Screen received pt admitted from home with weakness, SOB and LBP please consult PT if pt has a decline in functional status from baseline, thank you Vickie Corley PT
[2019-07-30 16:00] VITALS: BP 116/47
[2019-07-30 20:00] VITALS: BP 116/58
--- NOTE | 2019-07-30 20:00 | NUR ---
PT SITTING UP ON SIDE OF BED, A&O, ANXIOUS. PT REQUESTING EXTENSION TUBING FOR OXYGEN. RESP NOTIFIED. NO ACUTE DISTRESS NOTED. IV PAENT AND IVF'S INFUSING ORDERED WITHOUT DIFFICULTY.
--- NOTE | 2019-07-30 21:00 | NUR ---
MEDICATED WITH TORADOL AND ATIVAN FOR C/O PAIN AND ANXIETY.
--- NOTE | 2019-07-30 22:00 | NUR ---
TORADOL AND ATIVAN EFFECTIVE.
--- NOTE | 2019-07-30 23:40 | NUR ---
MEDICATED WITH ULTRAM PER PRN ORDER FOR C/O PAIN.
[2019-07-31] VITALS: BP 105/60
[2019-07-31 08:00] VITALS: BP 110/70
--- NOTE | 2019-07-31 08:00 | NUR ---
PT UP IN BED RCEIEVING BREATHING TREATMENT. TIANA DAVILA SPNRCC
--- NOTE | 2019-07-31 09:00 | NUR ---
Weight Calculator in to see patient. No new needs or request at this time. When medically stable he will be discharged to home with the resumption of his home health care services.
--- NOTE | 2019-07-31 09:35 | NUR ---
pt complained of lower back pain rated 7/10, pain med given will reassess pain in one hour. joy quarles spsidracc
--- NOTE | 2019-07-31 10:35 | NUR ---
REASSES PT FOR PAIN, STILL RATES LOWER BACK PAIN /10. TIANA DAVILA SPNRCC
--- NOTE | 2019-07-31 11:38 | NUR ---
MEDICATED FOR C/ BACK PAIN THAT THE PT RATES A 12/26, WILL MONITOR FOR EFFECTIVENESS TIANA MCFARLAND
[2019-07-31 12:00] VITALS: BP 118/60
--- NOTE | 2019-07-31 12:49 | NUR ---
REASSESSED EFFECTIVNESS PT RATED PAIN 5/10 TIANA DAVILA SPCLIFFORDCC
[2019-07-31 16:00] VITALS: BP 114/58
--- NOTE | 2019-07-31 17:10 | NUR ---
PT C/O OF LOWER BACK PAIN AND AXIETY, PRN ATIVAN AND ULTRAM GIVEN PER ORDER
--- NOTE | 2019-07-31 17:40 | NUR ---
PER PT ATIVAN AND ULTRAM WERE EFECTIVE
[2019-07-31 20:00] VITALS: BP 125/66
[2019-08-01] VITALS: BP 122/59
--- NOTE | 2019-08-01 00:03 | NUR ---
PATIENT IS AAOX3 RESTING IN BED WITH EASY AND REGULAR RESPERS ON 2L O2 VIA NC. ASSESSMENT IS COMPLETE WITH NO S/S OF DISTRESS NOTED AT THIS TIME. PATIENT C/O CHRONIC BACK PAIN RATING AN 8/10. PRN TORADOL AND ULTRAM GIVEN. BED IS LOW, LOCKED, AND CALL LIGHT IS WITHIN REACH. WILL MONITOR EFFECT.
[2019-08-01 08:00] VITALS: BP 130/70
[2019-08-01] MEDS ORDERED: CEFUROXIME AXE250 MG PO (08:25)
[2019-08-01] MEDS ORDERED: PREDNISONE5 MG PO (08:25)
--- NOTE | 2019-08-01 08:41 | NUR ---
MEDICATED WITH PRN TORODOL AND ONE TIME DOSE NORCO. PATIENT TO BE DISCHARGED TO HOME.
--- NOTE | 2019-08-01 09:40 | NUR ---
HARIKA AND JAROD HELPED.
--- NOTE | 2019-08-01 10:26 | NUR ---
Faxed home health resumption to [facility]
--- NOTE | 2019-08-01 11:08 | NUR ---
PATIENT DISCHARGED TO HOME.
== END 2019-08-01 11:08 | disposition home health service (06) | DRG 145 ==
LOC: ED 14:33 → EDHOLD 17:49 → 4E 17:49
PROVIDERS: Emergency Medicine; ADMIT Internal Medicine
DX: J20.9 Acute bronchitis, unspecified (principal); I10 Essential (primary) hypertension; M54.16 Radiculopathy, lumbar region; R62.7 Adult failure to thrive; M48.061 Spinal stenosis, lumbar region without neurogenic claudication; F33.9 Major depressive disorder, recurrent, unspecified; F41.1 Generalized anxiety disorder; J43.9 Emphysema, unspecified; E03.9 Hypothyroidism, unspecified; F33.0 Major depressive disorder, recurrent, mild; K57.90 Diverticulosis of intestine, part unspecified, without perforation or abscess without bleeding; Z82.49 Family history of ischemic heart disease and other diseases of the circulatory system; Z80.52 Family history of malignant neoplasm of bladder; J96.90 Respiratory failure, unspecified, unspecified whether with hypoxia or hypercapnia

== ENCOUNTER 2019-08-15 12:56 | Inpatient (IN) | payer OTHER ==
[~2019-08-15] VITALS: Ht 172.7 cm; Wt 61.5 kg
[~2019-08-15 12:56] MED LIST changes: +ATIVAN0.5 MG PO; +BREO ELLIPTA 21 EACH INH
[2019-08-15 13:40] VITALS: BP 116/78
--- NOTE | 2019-08-15 13:40 | NUR ---
A 63, admitted to , under the services of Dr. TIM DE LA VEGA,PALMIRA Gloria with a diagnosis of ACUTE RESP FAILURE. Chief complaint is SHORTNESS OF BREATH. Patient arrived via wheel chair from [place]. Monitor applied. Initial assessment completed. Vital signs taken and recorded. DR. TIM DE LA VEGA,PALMIRA Gloria notified of admission to the unit. Orders received. See assessment for past medical history, medications and allergies. Patient and/or family oriented to unit. [address] visitation policy reviewed. Clothing/patient valuable form completed. JESSICA CASTELLANO
[2019-08-15] MEDS ORDERED: TRAMADOL HYDRO100 MG PO (14:04)
[2019-08-15] MEDS ORDERED: OMEPRAZOLE40 MG PO (14:05)
[2019-08-15] MEDS ORDERED: VITAMIN D34000 UNIT PO (14:06)
[2019-08-15] MEDS ORDERED: Carafate1 GM PO (14:07)
[2019-08-15 14:44] LABS: BASO % 0.6 % (0.0-1.0); EOS % 0.2 % (1.0-4.0); HEMATOCRIT 36.6 % (42.0-52.0); HEMOGLOBIN 11.5 g/dl (14.0-18.0); MEAN CELL VOLUME 88.2 fl (80.0-94.0); MEAN CORPUSCULAR HGB 27.7 pg (27.0-31.0); MEAN CORPUSCULAR HGB CONC 31.4 g/dl (33.0-37.0); MONO # 0.7 10*3/uL (0.1-1.0); MONO % 15.4 % (3.0-9.0); NEUT # 2.9 10*3/uL (2.3-7.9); NEUT % 61.2 % (47.0-73.0); PLATELET COUNT AUTOMATED 324 10*3/uL (130-400); RED BLOOD COUNT 4.15 10*6/uL (4.50-5.90); WHITE BLOOD COUNT 4.7 10*3/uL (4.8-10.8)
[2019-08-15 14:59] LABS: ALBUMIN 3.7 gm/dl (3.1-4.5); ALKALINE PHOSPHATASE 73 U/L (45-117); BUN 8 mg/dl (7-24); CHLORIDE 107 mmol/L (98-107); CREATININE 0.77 mg/dL (0.70-1.30); POTASSIUM 3.9 mmol/L (3.5-5.1); SGOT/AST 11 IU/L (3-35); SGPT/ALT 27 U/L (12-78); SODIUM 141 mmol/L (136-145); TOTAL PROTEIN 7.7 gm/dL (6.4-8.2)
--- NOTE | 2019-08-15 15:07 | NUR ---
DR GRANADOS NOTIFIED OF CONSULT
[2019-08-15 16:00] VITALS: BP 131/70
[2019-08-15 20:00] VITALS: BP 123/74
--- NOTE | 2019-08-15 21:10 | NUR ---
PATIENT MEDICATED WITH TORADOL FOR BACK PAIN. RATES PAIN 01/26. WILL CHECK EFFECTIVENESS.
--- NOTE | 2019-08-15 21:45 | NUR ---
PATIENT IRRIATED AND ANXIOUS MEDICATED WITH PO ATIVAN. WILL CCHECK EFFECTIVENESS.
[2019-08-16] VITALS: BP 137/73
--- NOTE | 2019-08-16 | NUR ---
PATIENT STATES TORADOL HELPED.
--- NOTE | 2019-08-16 01:30 | NUR ---
PATIENT SLEEPING. EARLIER MEDICATIONS EFFECTIVE.
[2019-08-16 08:00] VITALS: BP 112/70
--- NOTE | 2019-08-16 08:50 | NUR ---
States that tylenol given earlier helped only somewhat for pain. Requesting toradol.
--- NOTE | 2019-08-16 08:56 | NUR ---
Medicated with toradol iv per prn order for c/o left shoulder and back pain.
--- NOTE | 2019-08-16 09:00 | NUR ---
Licensed Nuclear Operator in to talk to patient. Patient states he lives in [address]. There are no steps in the home. There is an elevator. Physician: Dr. Delmer Keith Pharmacy: [facility] Home health services: currently has OV and would like to resume those services upon discharge Patient's level of ADLs: minimal assistance Patient has working utilities: yes DME: walker, O2 @ 3L [place], portable O2 tanks, nebulizer, O2 supplier unknown Follow-up physician's appointment after d/c: he prefers to make his own follow up appt after discharge Does patient want to access PORTAL?: no Discharge plan discussed with patient. He is very [place]. He lives alone in [address] apartments. He is independent in his ADLs and ambulates with a walker. Discussed home health care services and he currently has [facility] and would like to resume those services upon discharge. He states his daughter will provide transportation on discharge. HAI ARMANDO
--- NOTE | 2019-08-16 09:45 | NUR ---
States that toradol helped relieve pain.
[2019-08-16 12:00] VITALS: BP 135/77
--- NOTE | 2019-08-16 13:58 | NUR ---
Routine medications given per orders including ultram and tylenol.
--- NOTE | 2019-08-16 14:53 | NUR ---
Pt c/o chest pain. States it is much worse then prior. Stat EKG ordered, toradol given per orders and Dr. Keith notified.
--- NOTE | 2019-08-16 15:12 | NUR ---
Pt having ekg at this time. Ativan was given iv per order.
[2019-08-16 16:00] VITALS: BP 154/85
[2019-08-16 16:30] VITALS: BP 142/72
--- NOTE | 2019-08-16 16:30 | NUR ---
MEDICATIONS EFFECTIVE. PT STATES HE IS FEELING MUCH BETTER. PT REQUESTED NICOTINE PATCH BE REMOVED, HE THINKS IT IS TOO STRONG. IT WAS REMOVED PER REQUEST. CALL LIGHT IN REACH. WILL MONITOR.
[2019-08-16 20:00] VITALS: BP 147/83
--- NOTE | 2019-08-16 20:40 | NUR ---
PT RESTING IN BED. TOLERATED ROUTINE MED. C/O CHEST AND LOWER BACK PAIN, RATES PAIN 5 ON PAIN SCALE MEDICATED WITH ROUTINE TRAMADOL AND TYLENOL SEE EMAR. CALL LIGHT IN REACH. SEE SHIFT ASSESSMENT.
--- NOTE | 2019-08-16 21:10 | NUR ---
PT C/O CHEST PAIN AND LOWER BACK PAIN, RATES PAIN 7 ON PAIN SCALE, STATES PAIN MEDICATION DIDN'T HELP. MEDICATED WITH TORADOL IV PER PRN ORDER, SEE EMAR. CALL LIGHT IN REACH.
--- NOTE | 2019-08-16 22:10 | NUR ---
SLEEPING IN BED. RESP-EASY AND REGULAR. MEDICATION SEEMS TO BE EFFECTIVE. CALL LIGHT IN REACH.
[2019-08-17] VITALS: BP 143/79
--- NOTE | 2019-08-17 | NUR ---
PT RESTING IN BED WITH EYES CLOSED. RESP-EASY AND REGULAR. OXYGEN IN USE. CALL LIGHT IN REACH. SEE SHIFT ASSESSMENT.
--- NOTE | 2019-08-17 02:58 | NUR ---
PT C/O LOWER BACK PAIN AND CHEST PAIN, RATES PAIN 7 ON PAIN SCALE 0-10. MEDICATED WITH TORADOL IV PER PRN ORDER, SEE EMAR. CALL LIGHT IN REACH. PT RECEIVING BREATHING TX.
--- NOTE | 2019-08-17 04:00 | NUR ---
RESTING IN BED WITH EYES CLOSED. OXGYEN IN USE. MEDICATIONS SEEMS TO BE EFFECTIVE. CALL LIGHT IN REACH.
--- NOTE | 2019-08-17 05:30 | NUR ---
TOLERATED ROUTINE MEDS WITH NO PROBLEM. OXYGEN IN USE. CALL LIGHT IN REACH.
--- NOTE | 2019-08-17 07:47 | NUR ---
Medicated with ativan po per prn order for anxiety.
[2019-08-17 08:00] VITALS: BP 100/70
--- NOTE | 2019-08-17 08:30 | NUR ---
States ativan helped relieve anxiety.
--- NOTE | 2019-08-17 09:01 | NUR ---
Medicated with toradol per order and pt request for pain medication. States left chest and back is hurting. Rated 5/10.
--- NOTE | 2019-08-17 09:29 | NUR ---
Discharge instructions reviewed with patient/family. Patient receptive and verbalizes understanding. Follow-up care arranged. Written instructions given to patient/. monitor technician and iv removed. PAULO RILEY
--- NOTE | 2019-08-17 10:00 | NUR ---
States toradol effective.
[2019-08-17 12:00] VITALS: BP 150/88; BP 161/87
--- NOTE | 2019-08-17 14:57 | NUR ---
Medicated with toradol iv per prn order for complaints of back pain and left rib pain.
[2019-08-17 16:00] VITALS: BP 150/90
--- NOTE | 2019-08-17 16:00 | NUR ---
States that pain medication effective.
[2019-08-17 20:00] VITALS: BP 140/60
--- NOTE | 2019-08-17 20:40 | NUR ---
PATIENT IS AAOX3 WITH EASY AND REGULAR RESPERS ON ROOM AIR. ASSESSMENT IS COMPLETE. PATIENT APPEARS ANXIOUS AND C/O HEADACHE AND BODYACHES. PRN ATIVAN AND TORADOL GIVEN. IV STARTED LEFT UPPER ARM WITH #22G IV AFTER 1 ATTEMPT. THE IV SITE WAS PREPPED WITH CHLORAPREP. HEPATIN LOCK ATTACHED, STERILE DRESSING APPLIED. PATIENT TOLERATED PROCEDURE WELL. PROCEDURE PERFORMED ACCORDING TO POLICY AND PROCEDURE. BED IS LOW, LOCKED, AND CALL LIGHT IS WITHIN REACH. WILL CONTINUE TO MONITOR, SEE SHIFT ASSESSMENT.
[2019-08-18] VITALS: BP 148/70
--- NOTE | 2019-08-18 07:44 | NUR ---
24 HR chart check completed.
[2019-08-18 08:00] VITALS: BP 120/62
--- NOTE | 2019-08-18 09:00 | NUR ---
RESTING IN BED. ANXIOUS. REPEATEDLY ASKING MEDICATION TIMES, EMAR REVIEWED WITH PATIENT AND QUESTIONS ASKED. RESPIRATIONS EASY. LUNGS DIMINISHED WITH WHEEZES. PULSE OX 94% 3L. CALL LIGHT WITHIN REACH. NO VOICED COMPLAINTS.
--- NOTE | 2019-08-18 11:00 | NUR ---
SITTING AT END OF HALLWAY LOOKING OUT WINDOW. O2 IN USE. NO VOICED COMPLAINTS
[2019-08-18 12:00] VITALS: BP 150/78; BP 161/94
--- NOTE | 2019-08-18 15:30 | NUR ---
BP ELEVATED, LISINOPRIL RESTARTED
[2019-08-18 16:00] VITALS: BP 167/94
--- NOTE | 2019-08-18 16:00 | NUR ---
IN ROOM, SITTING BY WINDOW. NO DISTRESS NOTED. CALL LIGHT WITHIN REACH
[2019-08-18 18:00] VITALS: BP 158/86
--- NOTE | 2019-08-18 18:00 | NUR ---
BP IMPROVED 158/86
--- NOTE | 2019-08-18 19:00 | NUR ---
RESTING IN BED. NO DISTRESS. NO COMPLAINTS
[2019-08-18 20:00] VITALS: BP 168/98
--- NOTE | 2019-08-18 20:55 | NUR ---
PATIENT IS AAOX3 SITTING IN CHAIR WITH EASY AND REGULAR RESPERS ON 3L O2 VIA NC. ASSESSMENT IS COMPLETE WITH NO S/S OF DISTRESS NOTED AT THIS TIME. PATIENT C/O CHEST PAIN, HEADACHE, AND SHORTNESS OF BREATH. PATIENT TEACHING PROVIDED AND PATIENT MEDICATED WITH SCHEDULED TYLENOL AND PRN ATIVAN FOR ANXITY. CALL LIGHT IS WITHIN REACH, WILL MONITOR EFFECT.
--- NOTE | 2019-08-18 22:00 | NUR ---
PRN ATIVAN SEEMS EFFECTIVE PATIENT IS SLEEPING WITH EASY AND REGULAR RESPERS. CALL LIGHT IS WITHIN REACH.
[2019-08-19] VITALS: BP 152/92
--- NOTE | 2019-08-19 01:10 | NUR ---
CONTACTED DR. PALACIOS IN REGARDS TO PAIN MANAGEMENT, 30MG IV TORADOL ORDERED ONE TIME.
--- NOTE | 2019-08-19 01:26 | NUR ---
ONE TIME DOSE OF TORADOL GIVEN AT THIS TIME PER ORDER. PATIENT TOLERATED WELL, CALL LIGHT IS WITHIN REACH. WILL MONITOR EFFECT.
--- NOTE | 2019-08-19 02:00 | NUR ---
PATIENT SLEEPING, PRN MEDICATIONS APPEAR EFFECTIVE. CALL LIGHT IS WITHIN REACH.
[2019-08-19 08:05] VITALS: BP 150/88
--- NOTE | 2019-08-19 09:00 | NUR ---
Parent Coach in to see patient. No new needs or request at this time. He denies any home needs. When medically stable he will be discharged to home.
--- NOTE | 2019-08-19 09:50 | NUR ---
Ativan given for anxiety. Will monitor.
--- NOTE | 2019-08-19 10:01 | NUR ---
Patient had c/o chest pain. I asked when the pain started and he said "years ago." He also stated "they took my pain medication away." Med rec reviewed.
--- NOTE | 2019-08-19 10:03 | NUR ---
Patient takes 100mg Ultram at home and is ordered 50mg Ultram inpatient. Will review with physician.
--- NOTE | 2019-08-19 10:40 | NUR ---
Ativan not effective. Patient continues to worry and still shows signs of anxiety. Nursing measure to assist with chronic anxiety. Patient not receptive.
[2019-08-19 12:00] VITALS: BP 166/94
--- NOTE | 2019-08-19 12:55 | NUR ---
Notified of patients blood pressure and c/o only having Ultram 50mg. No new orders. Physician to review.
[2019-08-19 16:00] VITALS: BP 148/87
--- NOTE | 2019-08-19 19:54 | NUR ---
PATIENT IS SLEEPING WITH EASY AND REGULAR RESPERS ON 3L O2 VIA NC. AWAKENS TO BE AAOX3 FOR ASSESSMENT. ASSESSMENT IS COMPLETE WITH NO C/O OR S/S OF DISTRESS NOTED AT THIS TIME. BED IS LOW, LOCKED, AND CALL LIGHT IS WITHIN REACH.
[2019-08-19 20:00] VITALS: BP 160/98
[2019-08-20] VITALS: BP 162/108
--- NOTE | 2019-08-20 04:56 | NUR ---
24 HR. CHART CHECK COMPLETE.
[2019-08-20 06:25] LABS: HEMATOCRIT 37.1 % (42.0-52.0); HEMOGLOBIN 11.6 g/dl (14.0-18.0); MEAN CELL VOLUME 87.3 fl (80.0-94.0); MEAN CORPUSCULAR HGB 27.3 pg (27.0-31.0); MEAN CORPUSCULAR HGB CONC 31.3 g/dl (33.0-37.0); MEAN PLATELET VOLUME 10.4 fl (9.6-12.3); PLATELET COUNT AUTOMATED 350 10*3/uL (130-400); RED BLOOD COUNT 4.25 10*6/uL (4.50-5.90); RED CELL DISTRI WIDTH 16.1 % (0-14.5); WHITE BLOOD COUNT 4.2 10*3/uL (4.8-10.8)
[2019-08-20 06:47] LABS: ATYPICAL LYMPHS 2 % (0-0); PLATELET SUFFICIENCY NORMAL (NORMAL); TOTAL CELLS COUNTED 100 #CELLS
[2019-08-20 06:56] LABS: BUN 30 mg/dl (7-24); CHLORIDE 104 mmol/L (98-107); POTASSIUM 4.9 mmol/L (3.5-5.1); SODIUM 139 mmol/L (136-145)
--- NOTE | 2019-08-20 08:45 | NUR ---
Ativan given per patient request for c/o anxiety. Will monitor.
[2019-08-20 09:45] VITALS: BP 152/98
[2019-08-20] MEDS ORDERED: PROPRANOLOL HY120 MG PO (10:28)
--- NOTE | 2019-08-20 11:00 | NUR ---
Spoke to Cassandra at [facility]. Patient is current with their nursing services. Notified Dr. Keith. New orders received to resume those services. Faxed resumption home health order to [facility].
--- NOTE | 2019-08-20 12:55 | NUR ---
Discharge instructions reviewed with patient/family. Patient receptive and verbalizes understanding. Follow-up care arranged. Written instructions given to patient/family. Patient was educated on new prescriptions and to follow up with Dr. Keith in 2 days. Encouraged patient to call office this afternoon to schedule appointment to monitor medication effectiveness. Patient was wheeled from unit by staff member and friend with all personal belongings accounted for. GINETTE HINDS
== END 2019-08-20 12:55 | disposition home health service (06) | DRG 145 ==
LOC: 4E 12:56
PROVIDERS: ADMIT Internal Medicine
DX: J20.9 Acute bronchitis, unspecified (principal); J96.21 Acute and chronic respiratory failure with hypoxia; I10 Essential (primary) hypertension; R62.7 Adult failure to thrive; J43.9 Emphysema, unspecified; F41.1 Generalized anxiety disorder; J45.901 Unspecified asthma with (acute) exacerbation; F17.210 Nicotine dependence, cigarettes, uncomplicated; G89.4 Chronic pain syndrome; D72.819 Decreased white blood cell count, unspecified; H54.61 Unqualified visual loss, right eye, normal vision left eye; R07.89 Other chest pain; M47.816 Spondylosis without myelopathy or radiculopathy, lumbar region; F33.0 Major depressive disorder, recurrent, mild; Z99.81 Dependence on supplemental oxygen; Z68.20 Body mass index [BMI] 20.0-20.9, adult

== ENCOUNTER 2020-03-30 16:42 | Inpatient (IN) | payer OTHER ==
[~2020-03-30] VITALS: Ht 172.7 cm; Wt 68.6 kg
[~2020-03-30 16:42] MED LIST changes: +OMEPRAZOLE40 MG PO; +PROPRANOLOL HY120 MG PO; +TRAMADOL HYDRO100 MG PO; +VITAMIN D34000 UNIT PO
[2020-03-30 17:02] VITALS: BP 130/90
[2020-03-30 17:29] LABS: BASO % 0.3 % (0.0-1.0); HEMATOCRIT 36.2 % (42.0-52.0); LYMPH # 0.7 10*3/uL (1.3-4.4); LYMPH % 18.8 % (27.0-41.0); MEAN CELL VOLUME 87.2 fl (80.0-94.0); MEAN CORPUSCULAR HGB 28.2 pg (27.0-31.0); MEAN CORPUSCULAR HGB CONC 32.3 g/dl (33.0-37.0); MEAN PLATELET VOLUME 9.8 fl (9.6-12.3); MONO # 0.3 10*3/uL (0.1-1.0); MONO % 7.8 % (3.0-9.0); NEUT # 2.8 10*3/uL (2.3-7.9); NEUT % 72.6 % (47.0-73.0); PLATELET COUNT AUTOMATED 395 10*3/uL (130-400); RED BLOOD COUNT 4.15 10*6/uL (4.50-5.90); WHITE BLOOD COUNT 3.8 10*3/uL (4.8-10.8)
[2020-03-30 17:39] LABS: ACT PARTIAL THROMBO TIME 25.5 SECONDS (20.0-32.1)
[2020-03-30 17:50] LABS: ALBUMIN 4.1 gm/dl (3.1-4.5); ALKALINE PHOSPHATASE 58 U/L (45-117); BUN 9 mg/dl (7-24); CHLORIDE 104 mmol/L (98-107); CREATININE 0.84 mg/dL (0.70-1.30); LIPASE 105 U/L (73-393); POTASSIUM 4.1 mmol/L (3.5-5.1); SGOT/AST 18 IU/L (3-35); SGPT/ALT 23 U/L (12-78); SODIUM 138 mmol/L (136-145); TOTAL PROTEIN 8.1 gm/dL (6.4-8.2)
[2020-03-30 17:57] LABS: TROPONIN I < 0.015 ng/ml (<0.045)
[2020-03-30 20:19] VITALS: BP 131/80
--- NOTE | 2020-03-30 20:23 | NUR ---
PATIENT DENIES ANY WOUNDS AT THIS TIME. PER PATIENT WOULD LIKE TO LEAVE SHOES AND PANTS ON UNTIL HE GETS TO HIS ROOM ON THE FLOOR.
[2020-03-30 20:35] VITALS: BP 139/70
--- NOTE | 2020-03-30 20:35 | NUR ---
A 64, admitted to , under the services of NANCY Gusman MD with a diagnosis of COPD EXACERBATION,CHEST PAIN R/O ACUTE [place]. Chief complaint is SOB. Patient arrived via ambulatory from ER. Monitor applied. Initial assessment completed. Vital signs taken and recorded. NANCY GUSMAN MD notified of admission to the unit. Orders received. See assessment for past medical history, medications and allergies. Patient and/or family oriented to unit. [facility] ICCU visitation policy reviewed. Clothing/patient valuable form completed. MICK CARLISLE
--- NOTE | 2020-03-30 21:00 | NUR ---
DR. PALACIOS NOTIFIED OF PT'S ADMISSION. Dae MCCAULEY.
[2020-03-31] VITALS: BP 127/73
--- NOTE | 2020-03-31 05:30 | NUR ---
PT STATES HE DID NOT SLEEP LAST NIGHT. PT TEACHING GIVEN ON S/E OF [place]. NO C/O PAIN VOICED. CALL LIGHT IN REACH.
[2020-03-31 08:00] VITALS: BP 144/80
--- NOTE | 2020-03-31 08:15 | NUR ---
DR TEMPLETON IN TO SEE PATIENT
--- NOTE | 2020-03-31 09:00 | NUR ---
Header Operator in to talk to patient. Patient states he lives in [address] apartments. There are no steps in the home. There is an elevator. Physician: Dr. Delmer Keith [facility] where his medications are blister packed and delivered Home health services: has had [facility] in the past Patient's level of ADLs: minimal assistance Patient has working utilities: yes DME: walker, electric wheelchair, O2 @ 3L nc, portable O2 tanks, nebulizer, O2 supplier [facility] Follow-up physician's appointment after d/c: he prefers to make his own follow up appt after discharge Does patient want to access PORTAL?: no Discharge plan discussed with patient. He lives alone in [address] apartments with his daughters and neighbors checking in on him. He states his elderly neighbor brings him meals. He started receiving SSI in October. He is independent in his ADLs and ambulates with a walker or gets around in an electric wheelchair. Discussed short term rehab and home health care services and he declines. He states "there are other people out there that need more help at home than me." Informed patient if he changes his mind to let CM know and he verbalized an understanding. When medically stable he will be discharged to home. He states his daughter will provide transportation on discharge. HAI ARMANDO
--- NOTE | 2020-03-31 09:19 | NUR ---
PRN NORCO PO GIVEN FOR COMPLAINT OF PAIN IN THE CHEST/LUNGS. WILL MONITOR FOR EFFECTIVENESS
--- NOTE | 2020-03-31 10:00 | NUR ---
PT STATES NORCO IS EFFECTIVE
[2020-03-31 12:00] VITALS: BP 154/82
[2020-03-31 16:00] VITALS: BP 168/88
--- NOTE | 2020-03-31 16:14 | NUR ---
IV START: NEW IV SITE INSERTED ON FIRST ATTEMPT. 22G TO LEFT UPPER FOREARM. PT TOLERATED WELL. 20G IN RIGHT HAND REMOVED INTACT WITHOUT COMPLICATIONS. CONTINUE TO MONITOR THE PT.
--- NOTE | 2020-03-31 16:49 | NUR ---
Nursing screen received and chart reviewed. Patient admitted for COPD exacerbation and chest pain. If patient has a decline in ADLs, transfers, or functional mobility, please send OT orders. Thank you. Shira Peter, OTR/L
[2020-03-31 20:00] VITALS: BP 145/82
--- NOTE | 2020-03-31 21:09 | NUR ---
PT MEDICATED W/NORCO PO AND ATIVAN PO FOR C/O CHEST DISCOMFORT 09/26 AND ANXIETY. PT'S FACE FLUSHED MOST LIKELY D/T IV STEROIDS. WILL MONITOR. CALL LIGHT IN REACH.
--- NOTE | 2020-03-31 22:00 | NUR ---
PRN NORCO AND ATIVAN EFFECTIVE FOR PAIN RELIEF AND ANXIETY RELIEF EVIDENCED BY PT RESTING QUIELTY IN BED W/EYES CLOSED. CALL LIGHT IN REACH.
[2020-04-01] VITALS: BP 103/74
[2020-04-01 08:00] VITALS: BP 110/78
--- NOTE | 2020-04-01 08:28 | NUR ---
PT MEDICATED WITH PO NORCO AND ATIVAN PER PRN ORDER FOR C/O CHEST PAIN/DISCOMFORT DUE TO FREQUENT COUGH AND ANXIETY. WILL MONITOR EFFECTIVENESS OF MEDS. VSS. CALL LIGHT WITHIN REACH.
--- NOTE | 2020-04-01 09:00 | NUR ---
CM in to see patient. No new needs or request at this time. Discussed home health care services and he declines. CM will continue to follow for any discharge planning needs. When medically stable he will be discharged to home.
--- NOTE | 2020-04-01 09:28 | NUR ---
NORCO AND ATIVAN EFFECTIVE PER PT. WILL CONTINUE TO MONITOR.
[2020-04-01 12:00] VITALS: BP 124/84
[2020-04-01 16:00] VITALS: BP 124/77
[2020-04-01 20:00] VITALS: BP 130/77
--- NOTE | 2020-04-01 21:29 | NUR ---
PATIENT MEDICATED WITH ATIVAN AND NORCO FOR COMPLAINTS OF ANXIETY AND DISCOMFORT. WILL MONITOR FOR EFFECTIVENESS. CALL LIGHT IN REACH.
--- NOTE | 2020-04-01 22:21 | NUR ---
ATIVAN AND NORCO EFFECTIVE. PATIENT IN BED RESTING AT THIS TIME. NO SIGNS OR SYMPTOMS OF DISTRESS NOTED. CALL LIGHT IN REACH.
[2020-04-02] VITALS: BP 125/71
[2020-04-02 08:00] VITALS: BP 145/78
--- NOTE | 2020-04-02 09:24 | NUR ---
PT MEDICATED WITH PO ATIVAN AND NORCO PER PRN ORDER FOR C/O ANXIETY AND GENERALIZED PAIN/DISCOMFORT. WILL MONITOR EFFECTIVENESS. CALL LIGHT WITHIN REACH.
--- NOTE | 2020-04-02 10:24 | NUR ---
EARLIER MEDS EFFECTIVE PER PT. WILL CONTINUE TO MONITOR..
[2020-04-02 12:00] VITALS: BP 134/70
[2020-04-02 16:00] VITALS: BP 115/69
--- NOTE | 2020-04-02 16:00 | NUR ---
PATIENT RESTING COMFORTABLY IN BED. NO DISTRESS NOTED. RESPIRATIONS EASY, REGULAR AT REST. POX 100% VIA 3LNC. WILL CONTINUE TO MONITOR. CALL LIGHT WITHIN REACH. VSS.
[2020-04-02 20:00] VITALS: BP 153/65
--- NOTE | 2020-04-02 21:26 | NUR ---
PATIENT MEDICATED WITH ATIVAN AND NORCO FOR COMPLAINTS OF ANXIETY AND GENERALIZED DISCOMFORT. WILL MONITOR FOR EFFECTIVENESS. CALL LIGHT IN REACH.
--- NOTE | 2020-04-02 22:15 | NUR ---
NORCO AND ATIVAN EFFECTIVE AT THIS TIME.
--- NOTE | 2020-04-02 22:30 | NUR ---
PATIENT COMPLAINING OF IV BURNING AND SORE. HEP LOCK REMOVED AND NEW 22G INSERTED INTO RIGHT ARM ON FIRST ATTEMPT WITHOUT DIFFICULTY WITH GOOD BLOOD RETURN. PATIENT TOLERATED WELL. WILL CONTINUE TO MONITOR.
[2020-04-03] VITALS: BP 125/75
[2020-04-03 06:43] LABS: HEMATOCRIT 35.3 % (42.0-52.0); MEAN CELL VOLUME 89.8 fl (80.0-94.0); MEAN CORPUSCULAR HGB 28.2 pg (27.0-31.0); MEAN CORPUSCULAR HGB CONC 31.4 g/dl (33.0-37.0); MEAN PLATELET VOLUME 10.2 fl (9.6-12.3); PLATELET COUNT AUTOMATED 387 10*3/uL (130-400); RED BLOOD COUNT 3.93 10*6/uL (4.50-5.90); WHITE BLOOD COUNT 4.5 10*3/uL (4.8-10.8)
[2020-04-03 07:03] LABS: BUN 20 mg/dl (7-24); CHLORIDE 103 mmol/L (98-107); CREATININE 0.72 mg/dL (0.70-1.30); POTASSIUM 4.3 mmol/L (3.5-5.1); SODIUM 138 mmol/L (136-145)
[2020-04-03 07:09] LABS: TOTAL CELLS COUNTED 100 #CELLS
[2020-04-03 07:10] LABS: OVALOCYTES FEW
[2020-04-03 07:11] LABS: PLATELET SUFFICIENCY NORMAL (NORMAL); ROULEAUX SLIGHT
[2020-04-03] MEDS ORDERED: PREDNISONE5 MG PO (08:59)
[2020-04-03] MEDS ORDERED: Theo-24 200MG200 MG PO (08:59)
--- NOTE | 2020-04-03 09:44 | NUR ---
Nutritional Support Services Note: Appetite is good for meals. Pt is eating 100% of meals. Regular diet as ordered. Ht.5'8 Wt.151#. IBW 144-164. He is at appropriate wt for ht at this time. Will follow as needed. Zoë Paz Rdn Ld
--- NOTE | 2020-04-03 10:00 | NUR ---
ATIVAN GIVEN FOR C/O ANXITY, NORCO GIVEN FOR C/O CP, RATES 5/10 ON PAIN SCALE. WILL MONITOR.
--- NOTE | 2020-04-03 11:00 | NUR ---
ATIVAN AND NORCO EFFECTIVE PER PT.
[2020-04-03 12:00] VITALS: BP 136/90
--- NOTE | 2020-04-03 12:00 | NUR ---
[facility] Discharge instructions reviewed with patient/family. Patient receptive and verbalizes understanding. Follow-up care arranged. Written instructions given to patient/family. AMELIA HALL
== END 2020-04-03 12:00 | disposition home or self-care (01) | DRG 140 ==
LOC: ED 16:42 → EDHOLD 18:29 → 5E 19:39
PROVIDERS: Emergency Medicine; ADMIT Internal Medicine; ATTEND Internal Medicine
DX: J44.1 Chronic obstructive pulmonary disease with (acute) exacerbation (principal); J20.9 Acute bronchitis, unspecified; J44.0 Chronic obstructive pulmonary disease with (acute) lower respiratory infection; F41.1 Generalized anxiety disorder; R62.7 Adult failure to thrive; R07.89 Other chest pain; M47.9 Spondylosis, unspecified; I10 Essential (primary) hypertension; F17.210 Nicotine dependence, cigarettes, uncomplicated; F33.0 Major depressive disorder, recurrent, mild; J96.10 Chronic respiratory failure, unspecified whether with hypoxia or hypercapnia; Z82.49 Family history of ischemic heart disease and other diseases of the circulatory system; Z80.41 Family history of malignant neoplasm of ovary; Z68.23 Body mass index [BMI] 23.0-23.9, adult

== ENCOUNTER 2020-04-08 15:38 | Inpatient (IN) | payer OTHER ==
[~2020-04-08] VITALS: Ht 173 cm; Wt 66.3 kg
[~2020-04-08 15:38] MED LIST changes: +Theo-24 200MG200 MG PO
[2020-04-08 16:08] LABS: HEMATOCRIT 37.1 % (42.0-52.0); MEAN CELL VOLUME 88.1 fl (80.0-94.0); MEAN CORPUSCULAR HGB 27.8 pg (27.0-31.0); MEAN CORPUSCULAR HGB CONC 31.5 g/dl (33.0-37.0); MEAN PLATELET VOLUME 10.2 fl (9.6-12.3); PLATELET COUNT AUTOMATED 302 10*3/uL (130-400); RED BLOOD COUNT 4.21 10*6/uL (4.50-5.90); RED CELL DISTRI WIDTH 14.8 % (0-14.5); WHITE BLOOD COUNT 5.6 10*3/uL (4.8-10.8)
[2020-04-08 16:19] LABS: ABG BASE EXCESS 5.8 mmol/L (-2.0-2.0); ARTERIAL BLOOD GAS PH 7.468 (7.35-7.45)
[2020-04-08 16:20] LABS: ACT PARTIAL THROMBO TIME 27.1 SECONDS (20.0-32.1)
[2020-04-08 16:28] LABS: ALBUMIN 3.6 gm/dl (3.1-4.5); ALKALINE PHOSPHATASE 60 U/L (45-117); BUN 13 mg/dl (7-24); CHLORIDE 102 mmol/L (98-107); CREATININE 0.79 mg/dL (0.70-1.30); POTASSIUM 4.3 mmol/L (3.5-5.1); SGOT/AST 16 IU/L (3-35); SGPT/ALT 30 U/L (12-78); SODIUM 138 mmol/L (136-145); TOTAL PROTEIN 7.5 gm/dL (6.4-8.2)
[2020-04-08 16:31] LABS: TROPONIN I < 0.015 ng/ml (<0.045)
[2020-04-08 16:46] LABS: PLATELET SUFFICIENCY NORMAL (NORMAL); TOTAL CELLS COUNTED 100 #CELLS
[2020-04-08 17:08] VITALS: BP 100/65
--- NOTE | 2020-04-08 17:09 | NUR ---
PATIENT DENIES WOUNDS A&OX4.
--- NOTE | 2020-04-08 18:34 | NUR ---
A 64, admitted to ICCU, under the services of Dr. TIM DE LA VEGA,PALMIRA Gloria with a diagnosis of SEPSIS AND EXACERBATION of COPD. Chief complaint is SHORTNESS OF BREATH. Patient arrived via from ER. Monitor applied. Initial assessment completed. Vital signs taken and recorded. DR. TIM DE LA VEGA,PALMIRA Gloria notified of admission to the unit. Orders received. See assessment for past medical history, medications and allergies. Patient and/or family oriented to unit. [facility] ICCU visitation policy reviewed. Clothing/patient valuable form completed. MADDIE JOHNSON
[2020-04-08 18:35] VITALS: BP 102/56
[2020-04-08] MEDS ORDERED: ASPIRIN81 M1 PO (19:09)
[2020-04-08] MEDS ORDERED: CARDIZEM CD120 M2 PO (19:09)
[2020-04-08] MEDS ORDERED: LISINOPRIL5 MG PO (19:10)
[2020-04-08] MEDS ORDERED: POTASSIUM CHLO PO (19:11)
[2020-04-08] MEDS ORDERED: DOXEPIN HCL10 MG PO (19:11)
[2020-04-08 20:00] VITALS: BP 105/76
--- NOTE | 2020-04-08 20:19 | NUR ---
DR. GRANADOS CALLED WITH CONSULT.
--- NOTE | 2020-04-08 20:30 | NUR ---
2029 ATIVAN 0.5MG PO GIEVN FOR C/O'S ANXIETY. WILL MONITOR.
--- NOTE | 2020-04-08 20:31 | NUR ---
2030 NORCO PO GIVEN FOR C/O'S CHEST PAIN "FROM COUGING". RATES PAIN A "6". WILL MONITOR.
--- NOTE | 2020-04-08 21:30 | NUR ---
EARLIER ATIVAN EFFECTIVE FOR RELIEF OF ANXIETY.
--- NOTE | 2020-04-08 21:31 | NUR ---
2131 EARLIER PAIN MED EFFECTIVE.
--- NOTE | 2020-04-08 22:16 | NUR ---
RESTING IN BED WITH EYES CLOSED. 02 INTACT.
[2020-04-09] VITALS: BP 94/61
--- NOTE | 2020-04-09 00:19 | NUR ---
PULSE OX 97% ON 4L.
[2020-04-09 04:00] VITALS: BP 106/70
--- NOTE | 2020-04-09 04:22 | NUR ---
OCC DRY NON-PRODUCTIVE COUGH NOTED. PULSE OX 99% ON 4L.
--- NOTE | 2020-04-09 05:09 | NUR ---
0509 NORCO PO GIVEN FOR C/O'S BACK PAIN. WILL MONITOR.
--- NOTE | 2020-04-09 06:09 | NUR ---
EARLIER NORCO EFFECTIVE. RESTING IN BED WITH EYES CLOSED. APPEARS TO BE SLEEPING. 02 INTACT. CONDITION GUARDED.
[2020-04-09 08:00] VITALS: BP 104/57
--- NOTE | 2020-04-09 08:30 | NUR ---
DR DUMONT IN TO SEE PT. UPDATED HIM ON PT'S CONDITION AND PLAN OF CARE. NEW ORDERS RECEIVED.
--- NOTE | 2020-04-09 09:30 | NUR ---
Chemical Sales Representative in to talk to patient. Patient states he lives in [address] apartments. There are no steps in the home. There is an elevator. Physician: Dr. Delmer Keith [facility] where his medications are blister packed and delivered Home health services: would like [facility] on discharge Patient's level of ADLs: minimal assistance Patient has working utilities: yes DME: walker, electric wheelchair, O2 @ 3L nc, portable O2 tanks, nebulizer, O2 supplier [facility] Follow-up physician's appointment after d/c: he prefers to make his own follow up appt after discharge Does patient want to access PORTAL?: no Discharge plan discussed with patient. He lives alone in [address] apartments with his daughters and neighbors checking in on him. He is independent in his ADLs and ambulates with a walker or gets around in an electric wheelchair. Discussed short term rehab and he would like to see how he progresses. If he needs short term rehab he would like to go back to [facility]. Discussed home health care services and he is agreeable. When provided with a list of agencies he chose [facility] as he has had them previously. Discharge plan undecided at this time. CM will continue to follow for discharge planning needs. He states his daughter will provide transportation on discharge. HAI ARMANDO
--- NOTE | 2020-04-09 09:30 | NUR ---
DR GRANADOS IN TO SEE PT. NEW ORDERS RECEIVED.
--- NOTE | 2020-04-09 10:10 | NUR ---
MEDICATED PT PER PRN ORDER WITH ATIVAN FOR C/O ANXIETY.
--- NOTE | 2020-04-09 10:50 | NUR ---
PT STATES RELIEF OF ANXIETY WITH EARLIER ATIVAN.
[2020-04-09 12:00] VITALS: BP 121/63
--- NOTE | 2020-04-09 12:58 | NUR ---
PATIENT MEDICATED WITH NORCO PER DRS ORDERS FOR COMPLAINTS OF PAIN. RN WILL MONITOR FOR EFFECTIVENESS
--- NOTE | 2020-04-09 13:45 | NUR ---
PT RESTING NO ACUTRE DISTRESS NOTED. PT STATES RELIEF OF PAIN WITH EARLIER NORCO.
[2020-04-09 16:00] VITALS: BP 102/61
--- NOTE | 2020-04-09 18:25 | NUR ---
PT RESTING. NO ACUTE DISTRESS NOTED.
[2020-04-09 20:00] VITALS: BP 116/52
--- NOTE | 2020-04-09 20:14 | NUR ---
1950 RESTING IN BED WATCHING TV. ALERT AND PLEASANT. PULSE OX 97% ON 3L. NO DISTRESS NOTED. HEP [facility]KC INTACT.
[2020-04-09 20:39] LABS: BILIRUBIN Negative (Negative); BLOOD Negative (Negative); CLARITY Clear (Clear); COLOR Yellow (Yellow); GLUCOSE Negative (Negative); KETONE Negative (Negative); LEUKO ESTERASE Negative (Negative); NITRITE Negative (Negative)
[2020-04-09 20:41] LABS: BACTERIA TRACE; RBC 0-2 rbc/hpf (0-2); WBC 0-2 wbc/hpf (0-5)
--- NOTE | 2020-04-09 21:01 | NUR ---
ATIVAN 0.5MG PO GIVEN FOR C/O'S AMXIETY FOR FOR SLEEP. WILL MONITOR.
--- NOTE | 2020-04-09 21:02 | NUR ---
NORCO PO GIVEN FOR C/O'S BACK DISCOMFORT. WILL MONITOR.
--- NOTE | 2020-04-09 22:01 | NUR ---
EARLIER ATIVAN AND MORCO EFFECTIVE.
[2020-04-10] VITALS: BP 110/62
--- NOTE | 2020-04-10 00:29 | NUR ---
RESTING IN BED WITH EYES CLOSED. APPEARS TO BE SLEEPING.
[2020-04-10 04:00] VITALS: BP 119/67
--- NOTE | 2020-04-10 05:07 | NUR ---
NORCO 1 PO FOR C/O'S BACK PAIN. DOES NOT RATED. WILL MONITOR.
--- NOTE | 2020-04-10 06:07 | NUR ---
EARLIER PAIN MED EFFECTIVE. RESTING IN BED WITH EYES CLOSED. NO DISTRESS NOTED. CONDITION GUARDED.
[2020-04-10 06:29] LABS: HEMATOCRIT 32.7 % (42.0-52.0); MEAN CELL VOLUME 90.8 fl (80.0-94.0); MEAN CORPUSCULAR HGB 28.3 pg (27.0-31.0); MEAN CORPUSCULAR HGB CONC 31.2 g/dl (33.0-37.0); MEAN PLATELET VOLUME 10.6 fl (9.6-12.3); PLATELET COUNT AUTOMATED 284 10*3/uL (130-400); RED CELL DISTRI WIDTH 14.9 % (0-14.5); WHITE BLOOD COUNT 5.5 10*3/uL (4.8-10.8)
[2020-04-10 06:59] LABS: OVALOCYTES FEW; PLATELET SUFFICIENCY NORMAL (NORMAL); TOTAL CELLS COUNTED 100 #CELLS
--- NOTE | 2020-04-10 07:16 | NUR ---
Shift chart check completed.
[2020-04-10 08:00] VITALS: BP 116/65
--- NOTE | 2020-04-10 08:16 | NUR ---
ATIVAN PO GIVEN FOR ANXIETY - PER PT HE IS HAVING A HARD TIME BREATHING BUT WAS RESTING QUIETLY WITH RESP EASY & NONLABORED PRIOR TO AROUSING. PATIENT IS 95% ON NC3L..DENIES COUGH
--- NOTE | 2020-04-10 09:00 | NUR ---
PER PATIENT HE ALREADY WASHED UP THIS AM AND HE IS FEELING BETTER WITH THE ATIVAN. REQUESTS NURSE BRING [facility] WHEN IT IS DUE LATER..
--- NOTE | 2020-04-10 09:00 | NUR ---
CM in to see patient. No new needs or request at this time. He would like to see how he continues to progress. Home with [facility] vs. [facility]. Discharge plan undecided at this time. CM will continue to follow for any discharge planning needs.
--- NOTE | 2020-04-10 11:13 | NUR ---
TEMPERATURE LOGGING OPERATOR MARY GARCIA MADE AWARE OF PATIENT DOWNGRADED TO [facility]
--- NOTE | 2020-04-10 11:16 | NUR ---
DR DUMONT & DR GRANADOS ROUNDED - OK TO CHANGE TO [facility]
[2020-04-10 12:00] VITALS: BP 109/67
--- NOTE | 2020-04-10 12:22 | NUR ---
PATIENT EXPLAINED NEED FOR COVID TESTING D/T POSSIBLE NEED FOR REHAB
--- NOTE | 2020-04-10 12:56 | NUR ---
PATIENT SITTING UP IN CHAIR.. NORCO GIVEN PER PT REQUEST FOR PAIN WITH COUGH
--- NOTE | 2020-04-10 14:00 | NUR ---
PHYSICAL THERAPY Physical Therapy evaluation completed in ICCU with full evaluation to follow. Recommend physical therapy per plan of care pt may benefit from SNF pending progress due to respiratory status however he prefers to go home with HH has dgtr who can assist him, pt has home 02 and FWW. Thank you for this referral. Vickie Corley PT
--- NOTE | 2020-04-10 14:23 | NUR ---
Called to patient's room to discuss discharge planning. He states Dr. Keith told him he was going to be discharged to home tomorrow but Dr. Machado told him he was going to keep him for a couple of days for testing. Discussed [facility] vs home health care. He would go to [facility] if needed but only for a couple of weeks. He would rather have home health at home. CM will continue to follow for any discharge planning needs.
--- NOTE | 2020-04-10 15:52 | NUR ---
Occupational Therapy evaluation completed on ICUU-5 with full evaluation to follow. Recommend occupational therapy per plan of care and return home with home health upon discharge. Thank you for this referral. Marielos Davies OTR/L
[2020-04-10 16:00] VITALS: BP 114/67
--- NOTE | 2020-04-10 18:54 | NUR ---
MOVED TO 515 WITH BELONGINGS
[2020-04-10 20:00] VITALS: BP 128/65
--- NOTE | 2020-04-10 21:21 | NUR ---
PRN ATIVAN AND NORCO GIVEN FOR C/O ANXIETY AND GENERALIZED PAIN RATING A 10/10. CALL LIGHT IS WITHIN REACH, WILL MONITOR EFFECT.
--- NOTE | 2020-04-10 22:00 | NUR ---
PRN MEDICATIONS EFFECTIVE. PATIENT IS SLEEPING, RESPERS EASY AND REGULAR ON 3L O2 VIA NC. CALL LIGHT IS WITHIN REACH.
--- NOTE | 2020-04-10 23:30 | NUR ---
CHART CHECK COMPLETE.
[2020-04-11] VITALS: BP 102/83
[2020-04-11 08:00] VITALS: BP 106/86
--- NOTE | 2020-04-11 08:36 | NUR ---
PT RESTING IN BED. NO DISTRESS NOTED. WILL MONITOR
[2020-04-11 12:00] VITALS: BP 124/75
--- NOTE | 2020-04-11 14:23 | NUR ---
PT REQUESTED AND GIVEN NORCO FOR C/O CHEST PAIN PT RATES PAIN 8/10 WILL MONITOR
--- NOTE | 2020-04-11 15:20 | NUR ---
PT STATES THAT [place] HELPED WILL MONITOR
[2020-04-11 16:00] VITALS: BP 110/68
[2020-04-11 20:00] VITALS: BP 143/81
--- NOTE | 2020-04-11 20:01 | NUR ---
ATIVAN GIVEN PER ORDER FOR ANXIETY. SEE MAR.
--- NOTE | 2020-04-11 21:00 | NUR ---
ATIVAN EFFECTIVE FOR ANXIETY PER PATIENT.
--- NOTE | 2020-04-11 22:16 | NUR ---
NORCO GIVEN PER ORDER FOR PAIN IN CHEST WITH DEEP BREATHS PER PT.RATED "6-7" SEE MAR.
--- NOTE | 2020-04-11 23:15 | NUR ---
NORCO EFFECTIVE FOR PAIN PER PT.
[2020-04-12] VITALS: BP 139/64
--- NOTE | 2020-04-12 02:14 | NUR ---
24 HR chart check completed.
--- NOTE | 2020-04-12 05:39 | NUR ---
NORCO GIVEN PER ORDER FOR C/O PAIN GENERALIZED PER PT. RATED "6". SEE MAR.
--- NOTE | 2020-04-12 06:30 | NUR ---
[place] HELPING WITH PAIN PER PT.
--- NOTE | 2020-04-12 06:41 | NUR ---
ATIVAN GIVEN PER ORDER FOR ANXIETY. SOB WITH EXCERSION WAS UP TO BATHROOM AND BACK TO CHAIR. O2 3L NC IN USE.
[2020-04-12 08:00] VITALS: BP 127/69
--- NOTE | 2020-04-12 08:58 | NUR ---
PT RESTING IN BED NO DISTRESS NOTED. WILL MONITOR
[2020-04-12 12:00] VITALS: BP 130/72
--- NOTE | 2020-04-12 14:46 | NUR ---
PT REQUESTED AND GIVEN NORCO FOR C/O CHEST PAIN . PT RATES PAIN 5/10 WILL MONITOR
--- NOTE | 2020-04-12 15:20 | NUR ---
PT STATES THAT [place] HELPED A LITTLE. WILL MONITOR
[2020-04-12 16:00] VITALS: BP 110/75
[2020-04-12 20:00] VITALS: BP 108/62
--- NOTE | 2020-04-12 20:29 | NUR ---
PRN ATIVAN GIVEN FOR PT COMPLAINTS OF ANXIETY ABOUT PROCEDURE TOMORROW. CALL LIGHT WITHIN REACH, WILL MONITOR
--- NOTE | 2020-04-12 21:20 | NUR ---
PRN MEDICATION SOMEWHAT EFFECTIVE PER PT
--- NOTE | 2020-04-12 22:26 | NUR ---
PRN NORCO GIVEN FOR PT COMPLAINTS OF BACK PAIN RATING IT 10. CALL LIGHT WITHIN REACH, WILL MONITOR
--- NOTE | 2020-04-12 23:20 | NUR ---
PRN NORCO APPEARS EFFECTIVE, PT SLEEPING
[2020-04-13] VITALS (9 sets, daily range): BP systolic 100–157; BP diastolic 55–128
--- NOTE | 2020-04-13 01:20 | NUR ---
24 HR chart check completed.
--- NOTE | 2020-04-13 03:34 | NUR ---
PATIENT CONTINUES TO SLEEP. NO DISTRESS NOTED ON 3L NC. CALL LIGHT WITHIN REACH, WILL MONITOR
--- NOTE | 2020-04-13 08:45 | NUR ---
OT NOTE Attempted to see pt this A.M. for OT session and upon arrival pt was out of the room for medical procedure. Will check back at a later time/date and continue with POC as able. EDIE Benoit/Patricia
--- NOTE | 2020-04-13 09:00 | NUR ---
CM in to see patient. He is currently not in his room. He is in surgery having a bronchoscopy. Will follow up at a later time.
--- NOTE | 2020-04-13 11:09 | NUR ---
JASON RECEIVED CALL FROM PATIENTS HYPERBARIC TECHNOLOGIST. SHE ASKED FOR AN UPDATE. AUTO DISMANTLER PROVIDED AN UPDATE FOR HER.
--- NOTE | 2020-04-13 11:32 | NUR ---
PHYSICAL THERAPY TREATMENT TIME: OUT 09:25 AM Patient was NOT in his room at 09:25 AM. PATIENT IS IN MEDICAL PROCEDURE AT THIS TIME. Will check back with patient later in the morning. ANTONIO ALVARADO PATIENT ACCOUNT ANALYST
--- NOTE | 2020-04-13 13:00 | NUR ---
PT REQUESTED AND GIVEN NORCO FOR C/O CHEST PAIN PT RATES PAIN 5/10 WILL MONITOR
--- NOTE | 2020-04-13 13:01 | NUR ---
OT NOTE Attempted to see pt this P.M. for OT session and upon arrival pt was supine in bed. Pt reported "I just came back from surgery, there is no way I am doing therapy now." Will check back at a later time/date and continue with POC as able. ACE Benoit
--- NOTE | 2020-04-13 13:37 | NUR ---
PHYSICAL THERAPY TREATMENT TIME: OUT OF ROOM- 1:15 PM Patient was wanting to rest because he just came back from a brochyscope. Will check back with patient in a little while. ANTONIO ALVARADO 3RD PRESSMAN
--- NOTE | 2020-04-13 13:40 | NUR ---
PT STATES THAT [employer] HELPED WILL MONITOR
--- NOTE | 2020-04-13 14:22 | NUR ---
CM in to see patient. No new needs or request at this time. Discussed short term rehab vs home health care services. He wishes to go home with an OV RN. He states he has had a Germania before and she was wonderful. When medically stable he will be discharged to home with [facility] services.
--- NOTE | 2020-04-13 21:00 | NUR ---
SITTING AT BEDSIDE. RESPIRATIONS EASY. LUNGS DIMINISHED, CLEAR WITH POOR AIR MOVEMENT. PULSE OX 99% 3L. ADMITS TO FEELING BETTER SINCE BRONCH. CALL LIGHT WITHIN REACH. NO VOICED COMPLAINTS
--- NOTE | 2020-04-13 21:41 | NUR ---
24 HR chart check completed.
--- NOTE | 2020-04-13 22:25 | NUR ---
REQUESTING NORCO PER PRN ORDER FOR COMPLAINTS OF SORE THROAT D/T BRONCH, PATIENT RATES PAIN A 6. ALSO PROVIDED WITH ATIVAN TO ASSIST WITH ANXIETY. WILL MONITOR
--- NOTE | 2020-04-13 23:00 | NUR ---
MEDS APPEAR EFFECTIVE. SLEEPING. RESPIRATIONS EASY. O2 IN USE. CALL LIGHT WITHIN REACH
[2020-04-14] VITALS: BP 148/80; BP 152/92
--- NOTE | 2020-04-14 00:30 | NUR ---
SLEEPING. NO DISTRESS NOTED. RESPIRATIONS EASY. VSS. CALL LIGHT WITHIN REACH
--- NOTE | 2020-04-14 06:23 | NUR ---
REQUESTED AND RECEIVED NORCO PER PRN ORDER FOR COMPLAINTS OF THROAT PAIN RATING A 5. CALL LIGHT WITHIN REACH. WILL MONITOR FOR EFFECTIVENESS
--- NOTE | 2020-04-14 07:01 | NUR ---
SITTING AT BEDSIDE, STATES RELIEF FROM EARLIER MEDS. RESPIRATIONS EASY. O2 IN USE. CALL LIGHT WITHIN REACH. NO FURTHER VOICED COMPLAINTS
[2020-04-14 08:00] VITALS: BP 140/82
--- NOTE | 2020-04-14 08:38 | NUR ---
PT RESTING IN BED/ NO DISTRESS NOTED. WILL MONITOR
[2020-04-14] MEDS ORDERED: AUGMENTIN 875-875 MG PO (08:56)
[2020-04-14] MEDS ORDERED: MEDROL DOSEPAK4 MG PO (08:56)
--- NOTE | 2020-04-14 09:30 | NUR ---
CM in to see patient. He is sitting in his bedside chair. Discussed his discharge to home today. Discussed [facility] services at home and he remains agreeable. He asked about having a regular breakfast instead of liquids. Will reach out to Dr. Keith. He denies any other home needs at this time, He is awaiting his discharge paperwork.
--- NOTE | 2020-04-14 10:24 | NUR ---
OT NOTE Attempted to see pt this A.M. for OT session and upon arrival pt was eating his breakfast. Will check back at a later time/date and continue with POC as able. EDIE Benoit/Patricia
--- NOTE | 2020-04-14 10:26 | NUR ---
PHYSICAL THERAPY Patient did not feel well enough to participate in therapy and he said he is being discharged. No therapy provided today for this reason. ANTONIO ALVARADO PAINT ROLLER COVERS SUPERVISOR
--- NOTE | 2020-04-14 10:34 | NUR ---
PT REQUESTED AND GIVEN ATIVAN FOR C/O ANXIETY WILL MONITOR
--- NOTE | 2020-04-14 10:38 | NUR ---
Faxed discharge instructions and summary to [facility].
--- NOTE | 2020-04-14 11:00 | NUR ---
ATIVAN HELPED A LITTLE PER PT WILL MONITOR
--- NOTE | 2020-04-14 11:20 | NUR ---
PT. REFUSED AEROSOL TREATMENT. STATES HE IS BEING DISCHARGED WILL TAKE ONE WHEN HE GETS HOME.
--- NOTE | 2020-04-14 11:39 | NUR ---
Faxed home health care order to [facility] along with face to face and clinical.
--- NOTE | 2020-04-14 12:41 | NUR ---
Discharge instructions reviewed with patient/family. Patient receptive and verbalizes understanding. Follow-up care arranged. Written instructions given to patient/family. MARISA AGEE
[2020-04-14 13:09] LABS: ACID FAST SPEC PROCESSING Concentration (.)
--- NOTE | 2020-04-15 08:08 | NUR ---
PHYSICAL THERAPY CO-SIGN I approve of the Physical Therapy notes written above. HAI MORALES PT, DPT
--- NOTE | 2020-04-15 17:08 | NUR ---
OCCUPATIONAL THERAPY CO-SIGN I approve of the Occupational Therapy notes written above. EPHRAIM EDWARDS OTR/Patricia
[2020-06-01 11:10] LABS: ACID FAST CULTURE Negative (.)
== END 2020-04-14 12:56 | disposition home health service (06) | DRG 133 ==
LOC: ED 15:38 → ICCU 17:12 → EDHOLD 17:12 → 5E 17:12 → ICCU 18:07 → 5E 04-10 19:15
PROVIDERS: Emergency Medicine; Internal Medicine Critical Care Medicine; ADMIT Internal Medicine; ATTEND Internal Medicine
PROC: 0BC18ZZ Extirpation of Matter from Trachea, Via Natural or Artificial Opening Endoscopic (ICD-10-PCS; principal; 2020-04-13)
PROC: 0BC98ZZ Extirpation of Matter from Lingula Bronchus, Via Natural or Artificial Opening Endoscopic (ICD-10-PCS; 2020-04-13)
PROC: 0BC48ZZ Extirpation of Matter from Right Upper Lobe Bronchus, Via Natural or Artificial Opening Endoscopic (ICD-10-PCS; 2020-04-13)
PROC: 0BC88ZZ Extirpation of Matter from Left Upper Lobe Bronchus, Via Natural or Artificial Opening Endoscopic (ICD-10-PCS; 2020-04-13)
PROC: 0BC58ZZ Extirpation of Matter from Right Middle Lobe Bronchus, Via Natural or Artificial Opening Endoscopic (ICD-10-PCS; 2020-04-13)
PROC: 0BC38ZZ Extirpation of Matter from Right Main Bronchus, Via Natural or Artificial Opening Endoscopic (ICD-10-PCS; 2020-04-13)
PROC: 0BC78ZZ Extirpation of Matter from Left Main Bronchus, Via Natural or Artificial Opening Endoscopic (ICD-10-PCS; 2020-04-13)
PROC: 0BC68ZZ Extirpation of Matter from Right Lower Lobe Bronchus, Via Natural or Artificial Opening Endoscopic (ICD-10-PCS; 2020-04-13)
PROC: 0BCB8ZZ Extirpation of Matter from Left Lower Lobe Bronchus, Via Natural or Artificial Opening Endoscopic (ICD-10-PCS; 2020-04-13)
DX: J96.20 Acute and chronic respiratory failure, unspecified whether with hypoxia or hypercapnia (principal); J44.1 Chronic obstructive pulmonary disease with (acute) exacerbation; K21.00 Gastro-esophageal reflux disease with esophagitis, without bleeding; F41.1 Generalized anxiety disorder; Z20.828 Contact with and (suspected) exposure to other viral communicable diseases; J44.0 Chronic obstructive pulmonary disease with (acute) lower respiratory infection; I10 Essential (primary) hypertension; G89.29 Other chronic pain; H54.61 Unqualified visual loss, right eye, normal vision left eye; J20.9 Acute bronchitis, unspecified; F33.9 Major depressive disorder, recurrent, unspecified; R62.7 Adult failure to thrive; M54.5 Low back pain; M47.896 Other spondylosis, lumbar region; Z68.22 Body mass index [BMI] 22.0-22.9, adult; I25.2 Old myocardial infarction; Z87.891 Personal history of nicotine dependence; Z80.41 Family history of malignant neoplasm of ovary; Z82.49 Family history of ischemic heart disease and other diseases of the circulatory system; Z71.6 Tobacco abuse counseling; Z99.81 Dependence on supplemental oxygen; Z79.899 Other long term (current) drug therapy

== ENCOUNTER 2020-08-25 13:43 | Observation (INO) | payer OTHER ==
[2020-08-25] VITALS (7 sets, daily range): BP systolic 97–133; BP diastolic 70–82
[~2020-08-25] VITALS: Ht 170.1 cm; Wt 64.0 kg
[~2020-08-25 13:43] MED LIST changes: +ASPIRIN81 M1 PO; +CARDIZEM CD120 M2 PO; +MEDROL DOSEPAK4 MG PO; +POTASSIUM CHLO PO
[2020-08-25 14:03] LABS: BASO % 0.5 % (0.0-1.0); EOS % 0.2 % (1.0-4.0); HEMATOCRIT 39.7 % (42.0-52.0); LYMPH # 0.5 10*3/uL (1.3-4.4); LYMPH % 12.2 % (27.0-41.0); MEAN CELL VOLUME 88.6 fl (80.0-94.0); MEAN CORPUSCULAR HGB 27.7 pg (27.0-31.0); MEAN CORPUSCULAR HGB CONC 31.2 g/dl (33.0-37.0); MEAN PLATELET VOLUME 10.1 fl (9.6-12.3); MONO # 0.5 10*3/uL (0.1-1.0); MONO % 11.7 % (3.0-9.0); NEUT # 3.3 10*3/uL (2.3-7.9); NEUT % 74.9 % (47.0-73.0); PLATELET COUNT AUTOMATED 381 10*3/uL (130-400); RED BLOOD COUNT 4.48 10*6/uL (4.50-5.90); RED CELL DISTRI WIDTH 15.3 % (0-14.5); WHITE BLOOD COUNT 4.4 10*3/uL (4.8-10.8)
[2020-08-25 14:20] LABS: ALBUMIN 4.4 gm/dl (3.1-4.5); ALKALINE PHOSPHATASE 41 U/L (45-117); BUN 16 mg/dl (7-24); CHLORIDE 103 mmol/L (98-107); POTASSIUM 4.8 mmol/L (3.5-5.1); SGOT/AST 15 IU/L (3-35); SGPT/ALT 30 U/L (12-78); SODIUM 137 mmol/L (136-145); TOTAL PROTEIN 8.4 gm/dL (6.4-8.2)
[2020-08-25 14:25] LABS: ACT PARTIAL THROMBO TIME 25.9 SECONDS (20.0-32.1); TROPONIN I < 0.015 ng/ml (<0.045)
[2020-08-25] MEDS ORDERED: PREDNISONE10 M1 PO (17:47)
[2020-08-25] MEDS ORDERED: POTASSIUM CHLO20 ME4 PO (17:49)
[2020-08-26] VITALS: BP 108/67
[2020-08-26 08:00] VITALS: BP 103/61
[2020-08-26 12:00] VITALS: BP 114/70
[2020-08-26 16:00] VITALS: BP 123/77; BP 181/64
[2020-08-26 20:00] VITALS: BP 127/81
[2020-08-27] VITALS: BP 132/77
[2020-08-27 06:26] LABS: MEAN CELL VOLUME 89.6 fl (80.0-94.0); MEAN CORPUSCULAR HGB 27.7 pg (27.0-31.0); MEAN PLATELET VOLUME 10.6 fl (9.6-12.3); PLATELET COUNT AUTOMATED 271 10*3/uL (130-400); RED BLOOD COUNT 3.46 10*6/uL (4.50-5.90); RED CELL DISTRI WIDTH 15.4 % (0-14.5); WHITE BLOOD COUNT 4.8 10*3/uL (4.8-10.8)
[2020-08-27 06:56] LABS: ALBUMIN 3.1 gm/dl (3.1-4.5); BUN 22 mg/dl (7-24); CHLORIDE 108 mmol/L (98-107); POTASSIUM 4.6 mmol/L (3.5-5.1); SGOT/AST 12 IU/L (3-35); SGPT/ALT 32 U/L (12-78); SODIUM 140 mmol/L (136-145)
[2020-08-27 06:59] LABS: ALKALINE PHOSPHATASE 33 U/L (45-117); CREATININE 0.78 mg/dL (0.70-1.30); TOTAL PROTEIN 6.2 gm/dL (6.4-8.2)
[2020-08-27 08:00] VITALS: BP 121/69
[2020-08-27 08:09] LABS: OVALOCYTES FEW; PLATELET SUFFICIENCY NORMAL (NORMAL); TOTAL CELLS COUNTED 100 #CELLS
[2020-08-27 16:00] VITALS: BP 148/77
[2020-08-28] VITALS: BP 136/78
[2020-08-28 06:29] LABS: BASO % 0.2 % (0.0-1.0); HEMATOCRIT 35.1 % (42.0-52.0); LYMPH # 0.4 10*3/uL (1.3-4.4); LYMPH % 7.9 % (27.0-41.0); MEAN CELL VOLUME 89.8 fl (80.0-94.0); MEAN CORPUSCULAR HGB 27.9 pg (27.0-31.0); MEAN CORPUSCULAR HGB CONC 31.1 g/dl (33.0-37.0); MEAN PLATELET VOLUME 10.8 fl (9.6-12.3); MONO # 0.3 10*3/uL (0.1-1.0); MONO % 5.4 % (3.0-9.0); NEUT # 4.1 10*3/uL (2.3-7.9); NEUT % 85.2 % (47.0-73.0); PLATELET COUNT AUTOMATED 348 10*3/uL (130-400); RED BLOOD COUNT 3.91 10*6/uL (4.50-5.90); RED CELL DISTRI WIDTH 15.5 % (0-14.5); WHITE BLOOD COUNT 4.8 10*3/uL (4.8-10.8)
[2020-08-28 06:54] LABS: ALBUMIN 3.5 gm/dl (3.1-4.5); BUN 26 mg/dl (7-24); CHLORIDE 102 mmol/L (98-107); POTASSIUM 4.3 mmol/L (3.5-5.1); SGPT/ALT 115 U/L (12-78); SODIUM 136 mmol/L (136-145)
[2020-08-28 06:57] LABS: ALKALINE PHOSPHATASE 42 U/L (45-117); SGOT/AST 48 IU/L (3-35); TOTAL PROTEIN 6.8 gm/dL (6.4-8.2)
[2020-08-28 07:48] VITALS: BP 159/87
[2020-08-28] MEDS ORDERED: PROPRANOLOL HCL60 MG PO (11:40)
[2020-08-28] MEDS ORDERED: TYLENOL EXTRA500 MG PO (11:40)
[2020-08-28] MEDS ORDERED: SERTRALINE HYDR50 MG PO (11:48)
[2020-08-28 12:00] VITALS: BP 150/80
== END 2020-08-28 14:00 | disposition home or self-care (01) ==
LOC: ED 13:43 → EDHOLD 16:36 → 5E 16:36
PROVIDERS: Emergency Medicine; Internal Medicine Critical Care Medicine; ADMIT Internal Medicine; ATTEND Internal Medicine
DX: J44.1 Chronic obstructive pulmonary disease with (acute) exacerbation (principal); J96.10 Chronic respiratory failure, unspecified whether with hypoxia or hypercapnia; I10 Essential (primary) hypertension; M19.90 Unspecified osteoarthritis, unspecified site; M47.816 Spondylosis without myelopathy or radiculopathy, lumbar region; F41.1 Generalized anxiety disorder; F32.9 Major depressive disorder, single episode, unspecified; R62.7 Adult failure to thrive; K21.9 Gastro-esophageal reflux disease without esophagitis; D64.9 Anemia, unspecified; F17.200 Nicotine dependence, unspecified, uncomplicated; Z79.82 Long term (current) use of aspirin; Z79.899 Other long term (current) drug therapy; Z99.81 Dependence on supplemental oxygen

== ENCOUNTER → 2020-10-27 | Outpatient (CLI) | payer OTHER ==
[~2020-10-27] MED LIST changes: +POTASSIUM CHLO20 ME4 PO; +PREDNISONE10 M1 PO; +PROPRANOLOL HCL60 MG PO; +SERTRALINE HYDR50 MG PO
[2020-10-27 12:31] LABS: BASO % 0.3 % (0.0-1.0); EOS % 0.8 % (1.0-4.0); HEMATOCRIT 36.4 % (42.0-52.0); LYMPH # 0.7 10*3/uL (1.3-4.4); LYMPH % 18.1 % (27.0-41.0); MEAN CELL VOLUME 87.9 fl (80.0-94.0); MEAN CORPUSCULAR HGB 27.8 pg (27.0-31.0); MEAN CORPUSCULAR HGB CONC 31.6 g/dl (33.0-37.0); MEAN PLATELET VOLUME 10.3 fl (9.6-12.3); MONO # 0.4 10*3/uL (0.1-1.0); MONO % 10.6 % (3.0-9.0); NEUT # 2.8 10*3/uL (2.3-7.9); NEUT % 69.2 % (47.0-73.0); PLATELET COUNT AUTOMATED 428 10*3/uL (130-400); RED BLOOD COUNT 4.14 10*6/uL (4.50-5.90); RED CELL DISTRI WIDTH 13.8 % (0-14.5)
[2020-10-27 12:54] LABS: ALBUMIN 4.2 gm/dl (3.1-4.5); ALKALINE PHOSPHATASE 39 U/L (45-117); BUN 14 mg/dl (7-24); CHLORIDE 102 mmol/L (98-107); CHOLESTEROL 212 mg/dL (<200); CREATININE 0.82 mg/dL (0.70-1.30); FREE T4 1.11 ng/dl (0.76-1.46); LDL CHOLESTEROL 117 mg/dL (9-159); POTASSIUM 4.3 mmol/L (3.5-5.1); SGOT/AST 12 IU/L (3-35); SGPT/ALT 29 U/L (12-78); SODIUM 137 mmol/L (136-145); TOTAL PROTEIN 7.7 gm/dL (6.4-8.2); TRIGLYCERIDES 138 mg/dl (<150)
[2020-10-27 13:12] LABS: VITAMIN D, 25-HYDROXY 68.2 ng/mL (30-100)
== END | disposition home or self-care (01) ==
LOC: LAB 11:59
PROVIDERS: ATTEND Internal Medicine
DX: I10 Essential (primary) hypertension (principal); E55.9 Vitamin D deficiency, unspecified; Z00.01 Encounter for general adult medical examination with abnormal findings; Z13.220 Encounter for screening for lipoid disorders; Z13.21 Encounter for screening for nutritional disorder; Z12.5 Encounter for screening for malignant neoplasm of prostate; Z13.1 Encounter for screening for diabetes mellitus

== ENCOUNTER 2021-08-01 06:48 | Inpatient (IN) | payer OTHER ==
[~2021-08-01] VITALS: Ht 152.4 cm; Wt 54.6 kg
[2021-08-01 06:51] VITALS: BP 113/72
[2021-08-01 07:30] VITALS: BP 94/65
[2021-08-01 07:33] LABS: HEMATOCRIT 34.4 % (42.0-52.0); MEAN CELL VOLUME 85.1 fl (80.0-94.0); MEAN CORPUSCULAR HGB 27.2 pg (27.0-31.0); MEAN PLATELET VOLUME 10.5 fl (9.6-12.3); PLATELET COUNT AUTOMATED 271 10*3/uL (130-400); RED BLOOD COUNT 4.04 10*6/uL (4.50-5.90); RED CELL DISTRI WIDTH 13.8 % (0-14.5); WHITE BLOOD COUNT 3.4 10*3/uL (4.8-10.8)
[2021-08-01 07:38] LABS: MANUAL DIFF REFLEX YES
[2021-08-01 07:41] LABS: ABG BASE EXCESS 3.9 mmol/L (-2.0-2.0); ARTERIAL BLOOD GAS PH 7.423 (7.35-7.45); ARTERIAL BLOOD GAS PO2 192.4 (80-90)
[2021-08-01 07:46] LABS: ACT PARTIAL THROMBO TIME 29.8 SECONDS (20.0-32.1); INTERNATIONAL NORM RATIO 1.1 (2.0-3.5)
[2021-08-01 07:52] LABS: ALBUMIN 3.6 gm/dl (3.1-4.5); ALKALINE PHOSPHATASE 51 U/L (45-117); BUN 22 mg/dl (7-24); CHLORIDE 101 mmol/L (98-107); CPK 42 U/L (39-308); CREATININE 0.73 mg/dL (0.70-1.30); POTASSIUM 4.1 mmol/L (3.5-5.1); SGOT/AST 20 IU/L (3-35); SGPT/ALT 33 U/L (12-78); SODIUM 137 mmol/L (136-145); TOTAL PROTEIN 7.7 gm/dL (6.4-8.2)
[2021-08-01 08:15] LABS: ATYPICAL LYMPHS 2 % (0-0); PLATELET SUFFICIENCY NORMAL (NORMAL); TOTAL CELLS COUNTED 100 #CELLS
[2021-08-01] MEDS ORDERED: CARDIZEM CD180 MG PO (11:29)
[2021-08-01] MEDS ORDERED: ZOLOFT100 MG PO (11:30)
[2021-08-01] MEDS ORDERED: LIPITOR40 MG PO (11:31)
[2021-08-01] MEDS ORDERED: PREDNISONE10 MG PO (11:32)
[2021-08-01 11:59] VITALS: BP 90/64
[2021-08-01 15:43] VITALS: BP 106/68
[2021-08-01 17:36] VITALS: BP 117/82
[2021-08-01 20:00] VITALS: BP 102/72
[2021-08-02] VITALS: BP 104/55
[2021-08-02 06:23] LABS: HEMATOCRIT 33.8 % (42.0-52.0); LYMPH # 0.3 10*3/uL (1.3-4.4); LYMPH % 12.3 % (27.0-41.0); MEAN CELL VOLUME 85.1 fl (80.0-94.0); MEAN CORPUSCULAR HGB 27.2 pg (27.0-31.0); MONO # 0.2 10*3/uL (0.1-1.0); MONO % 9.2 % (3.0-9.0); NEUT # 1.8 10*3/uL (2.3-7.9); NEUT % 77.2 % (47.0-73.0); PLATELET COUNT AUTOMATED 289 10*3/uL (130-400); RED BLOOD COUNT 3.97 10*6/uL (4.50-5.90); RED CELL DISTRI WIDTH 13.7 % (0-14.5); WHITE BLOOD COUNT 2.3 10*3/uL (4.8-10.8)
[2021-08-02 08:00] VITALS: BP 106/69
[2021-08-02 12:00] VITALS: BP 106/66
[2021-08-02 23:35] VITALS: BP 112/56
[2021-08-03 06:14] LABS: CHLORIDE 103 mmol/L (98-107); POTASSIUM 4.6 mmol/L (3.5-5.1); SODIUM 137 mmol/L (136-145)
[2021-08-03 06:17] LABS: HEMATOCRIT 29.9 % (42.0-52.0); MEAN CELL VOLUME 85.2 fl (80.0-94.0); MEAN CORPUSCULAR HGB 27.1 pg (27.0-31.0); MEAN CORPUSCULAR HGB CONC 31.8 g/dl (33.0-37.0); MEAN PLATELET VOLUME 11.1 fl (9.6-12.3); PLATELET COUNT AUTOMATED 276 10*3/uL (130-400); RED BLOOD COUNT 3.51 10*6/uL (4.50-5.90); RED CELL DISTRI WIDTH 13.7 % (0-14.5); WHITE BLOOD COUNT 3.5 10*3/uL (4.8-10.8)
[2021-08-03 06:39] LABS: ALBUMIN 3.1 gm/dl (3.1-4.5); ALKALINE PHOSPHATASE 46 U/L (45-117); BUN 29 mg/dl (7-24); CREATININE 0.51 mg/dL (0.70-1.30); LDH 167 U/L (87-241); SGOT/AST 59 IU/L (3-35); SGPT/ALT 87 U/L (12-78)
[2021-08-03 06:47] LABS: MANUAL DIFF REFLEX YES
[2021-08-03 07:40] LABS: OVALOCYTES FEW; PLATELET SUFFICIENCY NORMAL (NORMAL); POLYCHROMASIA SLIGHT; TOTAL CELLS COUNTED 100 #CELLS
[2021-08-03 07:41] LABS: ROULEAUX SLIGHT
[2021-08-03 08:30] VITALS: BP 117/65
[2021-08-03 11:59] VITALS: BP 115/61
[2021-08-03 16:00] VITALS: BP 102/63
[2021-08-03 19:00] VITALS: BP 103/61
[2021-08-03 20:00] VITALS: BP 103/61
[2021-08-04] VITALS: BP 140/83
[2021-08-04 05:41] LABS: ALBUMIN 2.9 gm/dl (3.1-4.5); ALKALINE PHOSPHATASE 56 U/L (45-117); BUN 28 mg/dl (7-24); CHLORIDE 105 mmol/L (98-107); CREATININE 0.57 mg/dL (0.70-1.30); LDH 194 U/L (87-241); POTASSIUM 5.4 mmol/L (3.5-5.1); SGOT/AST 119 IU/L (3-35); SGPT/ALT 240 U/L (12-78); SODIUM 140 mmol/L (136-145); TOTAL PROTEIN 7.3 gm/dL (6.4-8.2)
[2021-08-04 06:43] LABS: BASO % 0.4 % (0.0-1.0); LYMPH # 0.3 10*3/uL (1.3-4.4); LYMPH % 14.2 % (27.0-41.0); MEAN CELL VOLUME 87.4 fl (80.0-94.0); MEAN CORPUSCULAR HGB 26.7 pg (27.0-31.0); MEAN CORPUSCULAR HGB CONC 30.6 g/dl (33.0-37.0); MONO # 0.3 10*3/uL (0.1-1.0); MONO % 13.8 % (3.0-9.0); NEUT # 1.7 10*3/uL (2.3-7.9); NEUT % 68.7 % (47.0-73.0); PLATELET COUNT AUTOMATED 320 10*3/uL (130-400); RED BLOOD COUNT 3.89 10*6/uL (4.50-5.90); RED CELL DISTRI WIDTH 13.8 % (0-14.5); WHITE BLOOD COUNT 2.4 10*3/uL (4.8-10.8)
[2021-08-04 08:00] VITALS: BP 132/82
[2021-08-04 16:00] VITALS: BP 109/82
[2021-08-04 20:00] VITALS: BP 107/84
[2021-08-05] VITALS: BP 118/61
[2021-08-05 06:29] LABS: ALBUMIN 2.9 gm/dl (3.1-4.5); ALKALINE PHOSPHATASE 61 U/L (45-117); BUN 25 mg/dl (7-24); CHLORIDE 103 mmol/L (98-107); CREATININE 0.53 mg/dL (0.70-1.30); LDH 230 U/L (87-241); POTASSIUM 4.9 mmol/L (3.5-5.1); SGOT/AST 117 IU/L (3-35); SGPT/ALT 284 U/L (12-78); SODIUM 138 mmol/L (136-145); TOTAL PROTEIN 7.2 gm/dL (6.4-8.2)
[2021-08-05 08:00] VITALS: BP 132/84
[2021-08-05 12:00] VITALS: BP 103/60
[2021-08-05 16:00] VITALS: BP 114/73
[2021-08-05 20:00] VITALS: BP 143/87
[2021-08-06] VITALS: BP 134/71
[2021-08-06 06:41] LABS: HEMATOCRIT 32.6 % (42.0-52.0); MEAN CELL VOLUME 87.4 fl (80.0-94.0); MEAN CORPUSCULAR HGB 27.3 pg (27.0-31.0); MEAN CORPUSCULAR HGB CONC 31.3 g/dl (33.0-37.0); MEAN PLATELET VOLUME 10.5 fl (9.6-12.3); PLATELET COUNT AUTOMATED 363 10*3/uL (130-400); RED BLOOD COUNT 3.73 10*6/uL (4.50-5.90); RED CELL DISTRI WIDTH 13.7 % (0-14.5); WHITE BLOOD COUNT 2.7 10*3/uL (4.8-10.8)
[2021-08-06 06:49] LABS: ALBUMIN 2.7 gm/dl (3.1-4.5); ALKALINE PHOSPHATASE 73 U/L (45-117); BUN 21 mg/dl (7-24); CHLORIDE 99 mmol/L (98-107); CREATININE 0.51 mg/dL (0.70-1.30); POTASSIUM 4.9 mmol/L (3.5-5.1); SGOT/AST 155 IU/L (3-35); SGPT/ALT 426 U/L (12-78); SODIUM 137 mmol/L (136-145)
[2021-08-06 06:51] LABS: MANUAL DIFF REFLEX YES
[2021-08-06 07:16] VITALS: BP 123/64
[2021-08-06 07:40] LABS: PLATELET SUFFICIENCY NORMAL (NORMAL); TOTAL CELLS COUNTED 100 #CELLS
[2021-08-06] MEDS ORDERED: MEDROL DOSEPAK4 MG PO (10:40)
[2021-08-06 12:00] VITALS: BP 116/66
== END 2021-08-06 13:49 | disposition home health service (06) | DRG 137 ==
LOC: ED 06:48 → 4E 09:06 → EDHOLD 09:06 → 4E 16:42
PROVIDERS: Emergency Medicine; Internal Medicine Critical Care Medicine; ADMIT Internal Medicine; ATTEND Internal Medicine
DX: U07.1 COVID-19 (principal); J96.21 Acute and chronic respiratory failure with hypoxia; E44.1 Mild protein-calorie malnutrition; R62.7 Adult failure to thrive; J44.1 Chronic obstructive pulmonary disease with (acute) exacerbation; J44.0 Chronic obstructive pulmonary disease with (acute) lower respiratory infection; I45.10 Unspecified right bundle-branch block; J84.10 Pulmonary fibrosis, unspecified; E03.9 Hypothyroidism, unspecified; I10 Essential (primary) hypertension; F41.1 Generalized anxiety disorder; F17.210 Nicotine dependence, cigarettes, uncomplicated; K21.00 Gastro-esophageal reflux disease with esophagitis, without bleeding; K44.9 Diaphragmatic hernia without obstruction or gangrene; F33.0 Major depressive disorder, recurrent, mild; Z82.49 Family history of ischemic heart disease and other diseases of the circulatory system; Z68.23 Body mass index [BMI] 23.0-23.9, adult